=== PATIENT | male | born 1970 | race Asian ===

== ENCOUNTER 2017-02-11 20:50 | Inpatient (IN) | payer SELFPAY ==
--- NOTE | 2017-02-11 21:01 | EDM.PDOC ---
ED HPI GENERAL MEDICAL PROBLEM - General Chief Complaint: Gastrointestinal Problem Stated Complaint: TOOTH BRUSH IN RECTUM Time Seen by Provider: 02/11/17 21:01 Source of Information: Reports: Patient - History of Present Illness INITIAL COMMENTS - FREE TEXT/NARRATIVE: Patient reports that he inserted a toothbrush into his rectum yesterday. 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 He states he did not initially have pain but pain is significantly worsened now and is moved up to his upper abdomen. He states he did eat today last time was around 3 PM. He denies any bowel movement in the last 48 hours. He has not had any blood per rectum. 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 He has had quite a few [place] today with the last one being around 3 PM per his report. He denies any chronic medical conditions and is not on any medication daily. He is a full code per his report. Abdomen Pain Score (Numeric/FACES): 10 - Related Data Allergies Allergy/AdvReac Type Severity Reaction Status Date / Time No Known Allergies Allergy Verified 02/11/17 20:56 Home Meds: Home Meds . [No Known Home Meds] 02/11/17 [History] Past Medical History - Past Health History Medical/Surgical History: Denies Medical/Surgical History Social & Family History - Tobacco Use Smoking Status *Q: Current Every Day Smoker Years of Tobacco use: 20 Packs/Tins Daily: 1 - Caffeine Use Caffeine Use: Reports: Soda - Recreational Drug Use Recreational Drug Use: No ED ROS GENERAL - Review of Systems Review Of Systems: See Below Constitutional: Denies: Fever, Chills, Weakness, Fatigue Respiratory: Reports: No Symptoms Cardiovascular: Reports: No Symptoms GI/Abdominal: Reports: Abdominal Pain, Decreased Appetite. Denies: Black Stool , Bloody Stool, Nausea, Vomiting Skin: Reports: No Symptoms ED EXAM, GI/ABD - Physical Exam Exam: See Below Exam Limited By: No Limitations General Appearance: Alert, Moderate Distress, Thin Throat/Mouth: Normal Inspection, Normal Oropharynx, Other (Missing teeth) Respiratory/Chest: No Respiratory Distress, Normal Breath Sounds, Chest Non- Tender Cardiovascular: Regular Rate, Rhythm, No Murmur GI/Abdominal: Hypoactive Bowel Sounds, Tenderness (Diffuse), Guarding, Rigidity , Other Rectal (Males) Exam: Normal Rectal Tone, Other (No palpable foreign body on YEISON , no blood per rectum.) Neurological: Alert, Oriented EKG INTERPRETATION EKG Date: 02/11/17 Rhythm: NSR Rate (Beats/Min): 121 EKG Interpretation Comments: Reviewed by myself and Dr Cramer Course - Vital Signs Last Recorded V/S: Last Vital Signs Temp 98.2 F 02/11/17 20:53 Pulse 137 H 02/11/17 20:53 Resp 30 H 02/11/17 20:53 BP 136/94 H 02/11/17 20:53 Pulse Ox 98 02/11/17 20:53 - Orders/Labs/Meds Orders: Active Orders 24 hr Category Date Time Status EKG 12 Lead [EKG Documentation Completion] [RC] STAT Care 02/11/17 21:26 Active Abdomen 1V Upright [CR] Stat Exams 02/11/17 21:24 Taken Abdomen Pelvis wo Cont [CT] Stat Exams 02/11/17 21:15 Stop Req CXR [Chest 2V] [CR] Stat Exams 02/11/17 21:24 Taken Sodium Chloride 0.9% [Normal Saline] 1,000 ml Med 02/11/17 21:15 Active IV ONETIME Medication Orders Sodium Chloride (Normal Saline) 1,000 mls @ 999 mls/hr IV ONETIME ONE Stop: 02/11/17 22:15 Last Admin: 02/11/17 21:19 Dose: 999 mls/hr Labs: Laboratory Tests 02/11/17 02/11/17 02/11/17 Range/Units 21:09 21:09 21:17 WBC 8.24 (4.23-9.07) K/mm3 RBC 5.63 (4.63-6.08) M/mm3 Hgb 17.1 (13.7-17.5) gm/L Hct 49.1 (40.1-51.0) % MCV 87.2 (79.0-92.2) fl MCH 30.4 (25.7-32.2) pg MCHC 34.8 (32.2-35.5) g/dl RDW Std Deviation 40.8 (35.1-43.9) fL Plt Count 273 (163-337) K/mm3 MPV 9.9 (9.4-12.3) fl Neutrophils % (Manual) 72 H (40-60) % Band Neutrophils % 0 (0-10) % Lymphocytes % (Manual) 25 (20-40) % Atypical Lymphs % 0 % Monocytes % (Manual) 3 (2-10) % Eosinophils % (Manual) 0 L (0.8-7.0) % Basophils % (Manual) 0 L (0.2-1.2) Platelet Estimate Adequate Plt Morphology Comment Normal RBC Morph Comment Normal PT 9.7 (8.0-13.0) SECONDS INR 0.90 APTT 23 (22-36) SECONDS Sodium 131 L (136-145) mEq/L Potassium 3.5 (3.5-5.1) mEq/L Chloride 92 L (98-107) mEq/L Carbon Dioxide 26 (21-32) mEq/L Anion Gap 16.5 H (5-15) BUN 12 (7-18) mg/dL Creatinine 1.8 H (0.7-1.3) mg/dL Est Cr Clr Drug Dosing 46.77 mL/min Estimated GFR (MDRD) 41 (>60) mL/min BUN/Creatinine Ratio 6.7 L (14-18) Glucose 147 H (74-106) mg/dL Calcium 9.5 (8.5-10.1) mg/dL Total Bilirubin 1.5 H (0.2-1.0) mg/dL AST 29 (15-37) U/L ALT 42 (16-63) U/L Alkaline Phosphatase 53 (46-116) U/L C-Reactive Protein 0.4 (<1.0) mg/dL Total Protein 8.2 (6.4-8.2) g/dl Albumin 4.8 (3.4-5.0) g/dl Globulin 3.4 gm/dL Albumin/Globulin Ratio 1.4 (1-2) Ethyl Alcohol 0.00 (0.00) gm% Meds: Medications Generic Name Dose Route Start Last Admin Trade Name Freq PRN Reason Stop Dose Admin Sodium Chloride 1,000 mls @ 999 mls/hr 02/11/17 21:15 02/11/17 21:19 Normal Saline IV 02/11/17 22:15 999 mls/hr ONETIME ONE Administration Discontinued Medications Generic Name Dose Route Start Last Admin Trade Name Freq PRN Reason Stop Dose Admin Hydromorphone HCl 0.5 mg 02/11/17 21:15 02/11/17 21:20 Dilaudid IVPUSH 02/11/17 21:16 0.5 mg ONETIME ONE Administration Hydromorphone HCl Confirm 02/11/17 21:19 02/11/17 21:22 Dilaudid Administered 02/11/17 21:20 Not Given Dose 0.5 mg .ROUTE .STK-MED ONE Sodium Chloride Confirm 02/11/17 21:20 02/11/17 21:21 Normal Saline Administered 02/11/17 21:21 Not Given Dose 1,000 mls @ as directed .ROUTE .STK-MED ONE - Re-Assessments/Exams Free Text/Narrative Re-Assessment/Exam: Pain significantly improved with 0.5 mg of Dilaudid. Upright abdomen does not demonstrate any free air, cannot see the foreign body on this. Chest x-ray is unremarkable though official report is pending. EKG with sinus tachycardia and a rate of 121. Discussed this case with Dr. Orozco who agrees to come in to scope him to remove the foreign body and evaluate for any internal damage. Patient has not had anesthesia before. He is a full code. 02/11/17 22:03 Departure - Departure Time of Disposition: 22:07 Disposition: DC/Tfer to [facility] Clinical Impression: Foreign body in colon, initial encounter Qualifiers: Encounter type: initial encounter Qualified Code(s): T18.4XXA - Foreign body in colon, initial encounter - Discharge Information - My Orders Last 24 Hours: My Active Orders 02/11/17 21:15 Abdomen Pelvis wo Cont [CT] Stat Sodium Chloride 0.9% [Normal Saline] 1,000 ml IV ONETIME 02/11/17 21:24 Abdomen 1V Upright [CR] Stat CXR [Chest 2V] [CR] Stat 02/11/17 21:26 EKG 12 Lead [EKG Documentation Completion] [RC] STAT - Assessment/Plan Last 24 Hours: My Active Orders 02/11/17 21:15 Abdomen Pelvis wo Cont [CT] Stat Sodium Chloride 0.9% [Normal Saline] 1,000 ml IV ONETIME 02/11/17 21:24 Abdomen 1V Upright [CR] Stat CXR [Chest 2V] [CR] Stat 02/11/17 21:26 EKG 12 Lead [EKG Documentation Completion] [RC] STAT
[2017-02-11] MEDS ORDERED: HYDROmorphone 0.5 MG/0.5 ML Syringe IVPUSH ONE (21:15)
[2017-02-11] MEDS ORDERED: Sodium Chloride 0.9% 1,000 ML IV ONE (21:15)
[2017-02-11] MEDS ORDERED: HYDROmorphone 0.5 MG/0.5 ML Syringe ONE (21:19)
[2017-02-11] MEDS ORDERED: Sodium Chloride 0.9% 1,000 ML ONE (21:20)
--- NOTE | 2017-02-11 22:06 | PCM.PREANE ---
Preanesthetic Assessment - Anesthesia/Transfusion/Family Hx Anesthesia History: No Prior Anesthesia Family History of Anesthesia Reaction: No Transfusion History: No Prior Transfusion(s) Intubation History: Unknown - Review of Systems General: No Symptoms Pulmonary: No Symptoms (smokes 2 packs/day times 20 years), Cough Cardiovascular: No Symptoms Gastrointestinal: No symptoms, Difficulty swallowing Neurological: No Symptoms, Tingling (right foot noted) Other: Reports: None - Physical Assessment NPO Status Date: 02/11/17 NPO Status Time: 12:00 Pulse: 137 O2 Sat by Pulse Oximetry: 98 Respiratory Rate: 30 Blood Pressure: 136/94 Vital Signs: Last Vital Signs Temp 36.8 C 02/11/17 20:53 Pulse 137 H 02/11/17 20:53 Resp 30 H 02/11/17 20:53 BP 136/94 H 02/11/17 20:53 Pulse Ox 98 02/11/17 20:53 Height: 1.68 m Weight: 68.039 kg ASA Class: 2 Mental Status: Alert & Oriented x3 Airway Class: Mallampati = 3 Dentition: Reports: Normal Dentition, Missing Tooth/Teeth, Caries Thyro-Mental Finger Breadths: 3 Mouth Opening Finger Breadths: 3 ROM/Head Extension: Full Lungs: Clear to auscultation, Normal respiratory effort Cardiovascular: Regular Rate, Regular Rhythm, No Murmurs - Lab Values: Laboratory Last Values WBC 8.24 K/mm3 (4.23-9.07) 02/11/17 21:17 RBC 5.63 M/mm3 (4.63-6.08) 02/11/17 21:17 Hgb 17.1 gm/L (13.7-17.5) 02/11/17 21:17 Hct 49.1 % (40.1-51.0) 02/11/17 21:17 MCV 87.2 fl (79.0-92.2) 02/11/17 21:17 MCH 30.4 pg (25.7-32.2) 02/11/17 21: MCHC 34.8 g/dl (32.2-35.5) 02/11/17 21:17 RDW Std Deviation 40.8 fL (35.1-43.9) 02/11/17 21:17 Plt Count 273 K/mm3 (163-337) 02/11/17 21:17 MPV 9.9 fl (9.4-12.3) 02/11/17 21:17 Neutrophils % (Manual) 72 % (40-60) H 02/11/17 21:17 Band Neutrophils % 0 % (0-10) 02/11/17 21:17 Lymphocytes % (Manual) 25 % (20-40) 02/11/17 21:17 Atypical Lymphs % 0 % 02/11/17 21:17 Monocytes % (Manual) 3 % (2-10) 02/11/17 21:17 Eosinophils % (Manual) 0 % (0.8-7.0) L 02/11/17 21:17 Basophils % (Manual) 0 (0.2-1.2) L 02/11/17 21:17 Platelet Estimate Adequate 02/11/17 21:17 Plt Morphology Comment Normal 02/11/17 21:17 RBC Morph Comment Normal 02/11/17 21:17 PT 9.7 SECONDS (8.0-13.0) 02/11/17 21:09 INR 0.90 02/11/17 21:09 APTT 23 SECONDS (22-36) 02/11/17 21:09 Sodium 131 mEq/L (136-145) L 02/11/17 21:09 Potassium 3.5 mEq/L (3.5-5.1) 02/11/17 21:09 Chloride 92 mEq/L (98-107) L 02/11/17 21:09 Carbon Dioxide 26 mEq/L (21-32) 02/11/17 21:09 Anion Gap 16.5 (5-15) H 02/11/17 21:09 BUN 12 mg/dL (7-18) 02/11/17 21:09 Creatinine 1.8 mg/dL (0.7-1.3) H 02/11/17 21:09 Est Cr Clr Drug Dosing 46.77 mL/min 02/11/17 21:09 Estimated GFR (MDRD) 41 mL/min (>60) 02/11/17 21:09 BUN/Creatinine Ratio 6.7 (14-18) L 02/11/17 21:09 Glucose 147 mg/dL (74-106) H 02/11/17 21:09 Calcium 9.5 mg/dL (8.5-10.1) 02/11/17 21:09 Total Bilirubin 1.5 mg/dL (0.2-1.0) H 02/11/17 21:09 AST 29 U/L (15-37) 02/11/17 21:09 ALT 42 U/L (16-63) 02/11/17 21:09 Alkaline Phosphatase 53 U/L (46-116) 02/11/17 21:09 C-Reactive Protein 0.4 mg/dL (<1.0) 02/11/17 21:09 Total Protein 8.2 g/dl (6.4-8.2) 02/11/17 21:09 Albumin 4.8 g/dl (3.4-5.0) 02/11/17 21:09 Globulin 3.4 gm/dL 02/11/17 21:09 Albumin/Globulin Ratio 1.4 (1-2) 02/11/17 21:09 Ethyl Alcohol 0.00 gm% (0.00) 02/11/17 21:09 Above labs reviewed and noted. - Allergies Allergies/Adverse Reactions: Allergies Allergy/AdvReac Type Severity Reaction Status Date / Time No Known Allergies Allergy Verified 02/11/17 20:56 - Anesthesia Plan Pre-Op Medication Ordered: None - Acknowledgements Anesthesia Type Planned: General Anesthesia, MAC Pt an Appropriate Candidate for the Planned Anesthesia: Yes Alternatives and Risks of Anesthesia Discussed w Pt/Guardian: Yes Pt/Guardian Understands and Agrees with Anesthesia Plan: Yes PreAnesthesia Questionnaire - Past Health History Medical/Surgical History: Denies Medical/Surgical History - SUBSTANCE USE Smoking Status *Q: Current Every Day Smoker Recreational Drug Use History: No - HOME MEDS Home Medications: Home Meds . [No Known Home Meds] 02/11/17 [History] - CURRENT (IN HOUSE) MEDS Current Meds: Current Medications Sodium Chloride (Normal Saline) 1,000 mls @ 999 mls/hr IV ONETIME ONE Stop: 02/11/17 22:15 Last Admin: 02/11/17 21:19 Dose: 999 mls/hr Discontinued Medications Hydromorphone HCl (Dilaudid) 0.5 mg IVPUSH ONETIME ONE Stop: 02/11/17 21:16 Last Admin: 02/11/17 21:20 Dose: 0.5 mg Hydromorphone HCl (Dilaudid) Confirm Administered Dose 0.5 mg .ROUTE .STK-MED ONE Stop: 02/11/17 21:20 Last Admin: 02/11/17 21:22 Dose: Not Given Sodium Chloride (Normal Saline) Confirm Administered Dose 1,000 mls @ as directed .ROUTE .STK-MED ONE Stop: 02/11/17 21:21 Last Admin: 02/11/17 21:21 Dose: Not Given
--- NOTE | 2017-02-11 22:22 | PCM.HP ---
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 He tried to digitally extract the foreign body but was unsuccessful. He's had associated lower abdominal discomfort, along with the inability to void and presented to the emergency room for evaluation. He drinks a sixpack a day. He was smoking methamphetamine during this binge. Also during this binge he has not eaten and has not had any other liquids besides alcohol. He has not urinated much as well. He last ate at 12:30 PM. Abdomen Pain Score (Numeric/FACES): 10 - Related Data Allergies/Adverse Reactions: Allergies Allergy/AdvReac Type Severity Reaction Status Date / Time No Known Allergies Allergy Verified 02/11/17 20:56 Home Medications: Home Meds . [No Known Home Meds] 02/11/17 [History] Past Medical History - Past Health History Medical/Surgical History: Denies Medical/Surgical History Social & Family History - Tobacco Use Smoking Status *Q: Current Every Day Smoker Years of Tobacco use: 20 Packs/Tins Daily: 1 - Caffeine Use Caffeine Use: Reports: Soda - Recreational Drug Use Recreational Drug Use: No H&P Review of Systems - Review of Systems: Review Of Systems: ROS reveals no pertinent complaints other than HPI. Musculoskeletal: Reports: Joint Pain, Other (Right knee) Exam - Exam Exam: See Below - Vital Signs Vital Signs: Last Vital Signs Temp 36.8 C 02/11/17 20:53 Pulse 137 H 02/11/17 22:06 Resp 30 H 02/11/17 22:06 BP 136/94 H 02/11/17 22:06 Pulse Ox 98 02/11/17 22:06 Weight: 68.039 kg - Exam Quality Assessment: Urinary Catheter (Dark shultz yellow urine) General: Alert, Oriented, Cooperative, Mild Distress HEENT: EOMI, Hearing Intact, Other (Poor dentition) Neck: Supple, Trachea Midline Lungs: Clear to Auscultation, Normal Respiratory Effort Cardiovascular: Regular Rate, Regular Rhythm, Normal S1, Normal S2 Abdomen: Other (Mild suprapubic discomfort) (Male) Exam: Normal Inspection, Circumcised Rectal (Males) Exam: Deferred Extremities: Normal Inspection, Normal Pulses Skin: Warm, Dry, Intact Psychiatric: Alert, Normal Affect, Normal Mood - Patient Data Lab Results Last 24 hrs: Laboratory Results - last 24 hr 02/11/17 02/11/17 02/11/17 Range/Units 21:09 21:09 21:17 WBC 8.24 (4.23-9.07) K/mm3 RBC 5.63 (4.63-6.08) M/mm3 Hgb 17.1 (13.7-17.5) gm/L Hct 49.1 (40.1-51.0) % MCV 87.2 (79.0-92.2) fl MCH 30.4 (25.7-32.2) pg MCHC 34.8 (32.2-35.5) g/dl RDW Std Deviation 40.8 (35.1-43.9) fL Plt Count 273 (163-337) K/mm3 MPV 9.9 (9.4-12.3) fl Neutrophils % (Manual) 72 H (40-60) % Band Neutrophils % 0 (0-10) % Lymphocytes % (Manual) 25 (20-40) % Atypical Lymphs % 0 % Monocytes % (Manual) 3 (2-10) % Eosinophils % (Manual) 0 L (0.8-7.0) % Basophils % (Manual) 0 L (0.2-1.2) Platelet Estimate Adequate Plt Morphology Comment Normal RBC Morph Comment Normal PT 9.7 (8.0-13.0) SECONDS INR 0.90 APTT 23 (22-36) SECONDS Sodium 131 L (136-145) mEq/L Potassium 3.5 (3.5-5.1) mEq/L Chloride 92 L (98-107) mEq/L Carbon Dioxide 26 (21-32) mEq/L Anion Gap 16.5 H (5-15) BUN 12 (7-18) mg/dL Creatinine 1.8 H (0.7-1.3) mg/dL Est Cr Clr Drug Dosing 46.77 mL/min Estimated GFR (MDRD) 41 (>60) mL/min BUN/Creatinine Ratio 6.7 L (14-18) Glucose 147 H (74-106) mg/dL Calcium 9.5 (8.5-10.1) mg/dL Total Bilirubin 1.5 H (0.2-1.0) mg/dL AST 29 (15-37) U/L ALT 42 (16-63) U/L Alkaline Phosphatase 53 (46-116) U/L C-Reactive Protein 0.4 (<1.0) mg/dL Total Protein 8.2 (6.4-8.2) g/dl Albumin 4.8 (3.4-5.0) g/dl Globulin 3.4 gm/dL Albumin/Globulin Ratio 1.4 (1-2) Ethyl Alcohol 0.00 (0.00) gm% Result Diagrams: 02/11/17 21:17 02/11/17 21:09 *Q Meaningful Use (ADM) - VTE *Q VTE Criteria *Q: - Stroke *Q Stroke Criteria *Q: - AMI *Q AMI Criteria *Q: - Problem List (1) Rectal foreign body SNOMED Code(s): 93632779 ICD Code: T18.5XXA - FOREIGN BODY IN ANUS AND RECTUM, INITIAL ENCOUNTER Status: Acute Priority: High Current Visit: Yes Qualifiers: Encounter type: initial encounter Qualified Code(s): T18.5XXA - Foreign body in anus and rectum, initial encounter Problem List Initiated/Reviewed/Updated: Yes Orders Last 24hrs: Active Orders 24 hr Category Date Time Status EKG 12 Lead [EKG Documentation Completion] [RC] STAT Care 02/11/17 21:26 Active Abdomen 1V Upright [CR] Stat Exams 02/11/17 21:24 Taken Abdomen Pelvis wo Cont [CT] Stat Exams 02/11/17 21:15 Stop Req CXR [Chest 2V] [CR] Stat Exams 02/11/17 21:24 Taken Assessment/Plan Comment:: imp: Retained rectal foreign body -- tooth brush plan: Endoscopic removal with endoscopic evaluation of the rectosigmoid anatomy.
[2017-02-11] MEDS ORDERED: Midazolam 1 MG/ML 2 ML SDV ONE (22:32)
[2017-02-11] MEDS ORDERED: Lidocaine 1% 4 ML ONE ×2 (22:32→23:54)
[2017-02-11] MEDS ORDERED: fentaNYL 100 MCG/2 ML SDV ONE ×2 (22:32→23:04)
[2017-02-11] MEDS ORDERED: Propofol 200 MG/20 ML SDV ONE ×2 (22:32→23:55)
--- NOTE | 2017-02-11 23:04 | PCM.OPNOTE ---
- General Post-Op/Procedure Note Date of Surgery/Procedure: 02/11/17 Operative Procedure(s): Colonoscopy with snare removal of toothbrush from the sigmoid Findings: Standard adult sized toothbrush which perforated the sigmoid at 15-20 cm from the anal verge. The perforation site had circumferential edema. There was a smaller deep abrasion at the rectosigmoid junction containing some exudate. Pre Op Diagnosis: Retained rectal foreign body Post-Op Diagnosis: Perforated sigmoid from a toothbrush foreign body Anesthesia Technique: MAC, Moderate sedation Primary Surgeon: Madan Orozco Pathology: None EBL in mLs: 0 Complications: None Condition: Good Free Text/Narrative:: After adequate IV sedation and analgesia with monitoring the patient was placed on his left side. Perianal inspection was normal. On digital rectal examination I could not appreciate the retained foreign body. A lubricated colonoscope was inserted into the rectum to 50 cm. The descending colon was normal. The toothbrush was seen in the sigmoid colon with a suspeceted perforation site at about 18 cm. The brush and was caudad. I used a snare and grasped the brush side and removed it through the anal verge without difficulty. I went back to reinspect the sigmoid for possible lacerations and found a perforation from the toothbrush at 18 cm. The patient tolerated the procedure well. Insulation Extruder Operator photographs were taken for the patient for the record.
[2017-02-11] MEDS ORDERED: HYDROmorphone 0.5 MG/0.5 ML Syringe IVPUSH PRN (23:11)
[2017-02-11] MEDS ORDERED: ePHEDrine 50 MG/ML SDV IVPUSH PRN (23:11)
[2017-02-11] MEDS ORDERED: Midazolam 1 MG/ML 2 ML SDV IVPUSH PRN (23:11)
[2017-02-11] MEDS ORDERED: Ondansetron 4 MG/2 ML SDV IVPUSH PRN (23:11)
--- NOTE | 2017-02-11 23:13 | PCM.POSTAN ---
POST ANESTHESIA ASSESSMENT - MENTAL STATUS Mental Status: alert - VITAL SIGNS Pulse Rate: 127 SaO2: 91 Resp Rate: 22 Blood Pressure: 101/92 Temperature: 36.9 C - RESPIRATORY Respiratory Status: respiratory rate WNL, airway patent, O2 saturation stable, supplemental oxygen - CARDIOVASCULAR CV Status: pulse rate WNL, blood pressure stable - GASTROINTESTINAL GI Status: no symptoms - POST OP HYDRATION Hydration Status: adequate & stable
[2017-02-11] MEDS ORDERED: Phenylephrine 1 MG in Sodium Chloride 0.9% 10 ML IV SCH (23:15)
[2017-02-11] MEDS ORDERED: Dexamethasone 4 MG/ML 5 ML MDV ONE (23:54)
[2017-02-11] MEDS ORDERED: Lactated Ringers 3,000 ML ONE (23:54)
[2017-02-11] MEDS ORDERED: Rocuronium 50 MG/5 ML Vial ONE (23:54)
[2017-02-11] MEDS ORDERED: Ondansetron 4 MG/2 ML SDV ONE (23:54)
[2017-02-11] MEDS ORDERED: HYDROmorphone 1 MG/ML Syringe ONE (23:55)
[2017-02-11] MEDS ORDERED: fentaNYL 250 MCG/5 ML SDV ONE (23:55)
[2017-02-12] MEDS ORDERED: HYDROmorphone 1 MG/ML Syringe ONE (00:38)
[2017-02-12] MEDS ORDERED: Lactated Ringers 1,000 ML ONE (00:45)
[2017-02-12] MEDS ORDERED: Neostigmine Methylsulfate 1 MG/ML 5 ML Syringe ONE (00:50)
[2017-02-12] MEDS ORDERED: Rocuronium 50 MG/5 ML Vial ONE (01:02)
[2017-02-12] MEDS ORDERED: Ondansetron 4 MG/2 ML SDV IVPUSH PRN ×2 (01:51→02:06)
[2017-02-12] MEDS ORDERED: fentaNYL 100 MCG/2 ML SDV ONE (01:57)
[2017-02-12] MEDS ORDERED: cefOXitin 2 GM in Sodium Chloride 0.9% 100 ML IV SCH (02:00)
[2017-02-12] MEDS: fentaNYL 100 MCG/2 ML SDV IVPUSH PRN ×2 (02:05→02:45)
[2017-02-12] MEDS ORDERED: HYDROmorphone 0.5 MG/0.5 ML Syringe IVPUSH PRN (02:06)
[2017-02-12] MEDS ORDERED: fentaNYL 100 MCG/2 ML SDV IVPUSH PRN (02:06)
[2017-02-12] MEDS ORDERED: Midazolam 1 MG/ML 2 ML SDV IVPUSH PRN (02:06)
--- NOTE | 2017-02-12 02:08 | PCM.POSTAN ---
POST ANESTHESIA ASSESSMENT - MENTAL STATUS Mental Status: alert - VITAL SIGNS Pulse Rate: 92 SaO2: 99 Resp Rate: 15 Blood Pressure: 120/87 Temperature: 36.8 C - RESPIRATORY Respiratory Status: respiratory rate WNL, airway patent, O2 saturation stable, supplemental oxygen - CARDIOVASCULAR CV Status: pulse rate WNL, blood pressure stable - GASTROINTESTINAL GI Status: no symptoms - POST OP HYDRATION Hydration Status: adequate & stable
--- NOTE | 2017-02-12 02:12 | PCM.OPNOTE ---
- General Post-Op/Procedure Note Date of Surgery/Procedure: 02/12/17 Operative Procedure(s): Exploratory laparotomy with primary closure of a 1 cm proximal sigmoid perforation with creation of a loop ileostomy Findings: Fecal peritonitis 1 cm diameter perforation just proximal to the rectal sigmoid junction Pre Op Diagnosis: Distal sigmoid perforation with peritonitis Post-Op Diagnosis: Same Anesthesia Technique: General ET tube Primary Surgeon: Madan Orozco Pathology: None EBL in mLs: 50 Complications: None Condition: Good Free Text/Narrative:: Intake & Output 02/11/17 02/11/17 02/12/17 14:59 22:59 06:59 Intake Total 600 Balance 600 After adequate general endotracheal tube anesthesia was obtained the patient was placed in the lithotomy position. A site for the ileostomy as well as a site for an end sigmoid colostomy was marked with a skin pen. His teeth were evaluated and were found to be very loose. His perianal region was prepped with Betadine. The abdomen was prepped then draped sterilely for the abdominal procedure. A 10 blade was used to make an incision beginning just above the umbilicus and extending to just above the symphysis pubis. This incision was deepened through the linea alba into the peritoneum. On entry into the abdomen there was free air. It wasn't particularly feculent. There was a turbid brownish kind of peritoneal fluid present. Aerobic and anaerobic cultures were obtained and sent. A [place] self-retaining tractor was placed. With the large amount of fecal peritonitis I irrigated out the lower abdomen and pelvis with a liter of warm saline. I then placed the patient in the reverse Trendelenburg position and packed the small bowel into the right left upper quadrants. Exploration quickly revealed a 1 cm anterior perforation at the level of the sacral promontory just proximal to the rectosigmoid junction. There was no purulence in the area. There was no gross fecal contamination. The wound edges were fairly fresh. Because of this I closed the perforation primarily with a running 3-0 Vicryl. A second layer of 3-0 silk interrupted Lembert sutures were then placed as a second suture line. I then created a tongue of greater omentum and extended it down to the repair and fixated it across the repair with 3 -- 3- 0 silk pexing sutures. I irrigated out the abdomen with 2 L of warm saline at this point. About 15 cm from the ileocecal valve I placed a temporary janet suture of 3-0 silk. Donald clamps were placed to the right lateral abdominal wall fascia and brought to the midline. A nickel-sized circular excision of skin was performed with a 10 blade. I used the cautery to make a vertical incision down to the anterior rectus fascia and made a 2 cm incision in this structure. I split the rectus muscle fibers after cauterizing the inferior epigastrics. The peritoneum was entered with Metzenbaum scissors. I then inserted my 2 index fingers through the ostomy opening. I took a [place] clamp and pulled the loop of ileum through the abdominal wall. I closed the laparotomy incision with a running #1 PDS suture. I left the skin open. I matured the loop by making a semicircular incision 2 cm or so distal to the apex of the loop then securing the opening circumferentially with interrupted 4- 0 subcuticular Vicryls. The ileostomy was pink. The ileostomy appliance was prepped and secured to the skin and a bag was placed. 3% Betadine soaked gauze was placed in the midline incision followed by sterile gauze and silk tape. There were no procedural complications. He went to the recovery area extubated with the nasogastric tube pulled in stable condition.
[2017-02-12] MEDS: Sodium Chloride 0.9% 1,000 ML IV SCH ×3 (03:52→10:17)
[2017-02-12] MEDS: HYDROmorphone 0.5 MG/0.5 ML Syringe IVPUSH PRN ×6 (05:57→16:44)
[2017-02-12] MEDS: cefOXitin 2 GM in Premix Bag 1 BAG IV SCH ×3 (06:00→21:01)
--- NOTE | 2017-02-12 07:47 | PCM48HPAN ---
Post Anesthesia Note - EVALUATION WITHIN 48HRS OF ANESTHETIC Vital Signs in Normal Range: Yes Patient Participated in Evaluation: Yes Respiratory Function Stable: Yes Airway Patent: Yes Cardiovascular Function Stable: Yes Hydration Status Stable: Yes Pain Control Satisfactory: Yes Nausea and Vomiting Control Satisfactory: Yes Mental Status Recovered: Yes - COMMENTS/OBSERVATIONS Free Text/Narrative:: Pt reports doing well. mentating clearly, pain controlled with meds, no f/c, or n/v. hernandez catheter in place. has not attempted ambulation yet. tolerating clears
--- NOTE | 2017-02-12 08:05 | PCM.SURGPN ---
- General Info Date of Service: 02/12/17 POD#: 1 Functional Status: Reports: pain controlled - Review of Systems Gastrointestinal: Reports: Abdominal pain (Incisional) - Patient Data Vitals - most recent: Last Vital Signs Temp 37.0 C 02/12/17 02:50 Pulse 92 02/12/17 02:07 Resp 13 02/12/17 03:05 BP 109/86 02/12/17 03:05 Pulse Ox 96 02/12/17 03:05 Weight - most recent: 65.317 kg I&O - last 24 hours: Intake & Output 02/11/17 02/12/17 02/12/17 22:59 06:59 14:59 Intake Total 507 Output Total 675 Balance -168 Lab Results last 24 hrs: Laboratory Results - last 24 hr 02/12/17 02/12/17 Range/Units 05:48 05:48 WBC 8.94 (4.23-9.07) K/mm3 RBC 4.45 L (4.63-6.08) M/mm3 Hgb 13.6 L (13.7-17.5) gm/L Hct 39.9 L (40.1-51.0) % MCV 89.7 (79.0-92.2) fl MCH 30.6 (25.7-32.2) pg MCHC 34.1 (32.2-35.5) g/dl RDW Std Deviation 41.1 (35.1-43.9) fL Plt Count 228 (163-337) K/mm3 MPV 10.6 (9.4-12.3) fl Neut % (Auto) 91.8 H (34.0-67.9) % Lymph % (Auto) 3.9 L (21.8-53.1) % [place] % (Auto) 4.1 L (5.3-12.2) % Eos % (Auto) 0 L (0.8-7.0) Baso % (Auto) 0.1 (0.1-1.2) % Neut # (Auto) 8.20 H (1.78-5.38) K/mm3 Lymph # (Auto) 0.35 L (1.32-3.57) K/mm3 [place] # (Auto) 0.37 (0.30-0.82) K/mm3 Eos # (Auto) 0.00 L (0.04-0.54) K/mm3 Baso # (Auto) 0.01 (0.01-0.08) K/mm3 Manual Slide Review Abnormal smear Sodium 135 L (136-145) mEq/L Potassium 4.5 (3.5-5.1) mEq/L Chloride 101 (98-107) mEq/L Carbon Dioxide 26 (21-32) mEq/L Anion Gap 12.5 (5-15) BUN 12 (7-18) mg/dL Creatinine 1.1 (0.7-1.3) mg/dL Est Cr Clr Drug Dosing 76.53 mL/min Estimated GFR (MDRD) > 60 (>60) mL/min BUN/Creatinine Ratio 10.9 L (14-18) Glucose 154 H (74-106) mg/dL Calcium 7.7 L (8.5-10.1) mg/dL Total Bilirubin 1.2 H (0.2-1.0) mg/dL AST 18 (15-37) U/L ALT 27 (16-63) U/L Alkaline Phosphatase 31 L (46-116) U/L Total Protein 5.4 L (6.4-8.2) g/dl Albumin 2.9 L (3.4-5.0) g/dl Globulin 2.5 gm/dL Albumin/Globulin Ratio 1.2 (1-2) Med Orders - Current: Current Medications Ephedrine Sulfate (Ephedrine Sulfate) 5 mg IVPUSH ASDIRECTED PRN PRN Reason: Hypotension Hydromorphone HCl (Dilaudid) 0.5 mg IVPUSH Q1H PRN PRN Reason: Pain (severe 7-10) Last Admin: 02/12/17 07:45 Dose: 0.5 mg Phenylephrine HCl 1 mg/ Sodium (Chloride) 10.1 mls @ 1 mls/sec IV TITRATE [facility] Sodium Chloride (Normal Saline) 1,000 mls @ 200 mls/hr IV ASDIRECTED [facility] Last Admin: 02/12/17 03:52 Dose: 200 mls/hr Cefoxitin Sodium 2 gm/ Premix 50 mls @ 100 mls/hr IV Q8HR [facility] Last Admin: 02/12/17 06:00 Dose: 100 mls/hr Midazolam HCl (Versed 1 Mg/Ml) 2 mg IVPUSH ONETIME PRN PRN Reason: Sedation Midazolam HCl (Versed 1 Mg/Ml) 2 mg IVPUSH ONETIME PRN PRN Reason: Sedation Ondansetron HCl (Zofran) 4 mg IVPUSH ONETIME PRN PRN Reason: Nausea/Vomiting Ondansetron HCl (Zofran) 4 mg IVPUSH Q6H PRN PRN Reason: Nausea/Vomiting Ondansetron HCl (Zofran) 4 mg IVPUSH ONETIME PRN PRN Reason: Nausea/Vomiting Discontinued Medications Dexamethasone (Dexamethasone) Confirm Administered Dose 20 mg .ROUTE .STK-MED ONE Stop: 02/11/17 23:55 Fentanyl (Sublimaze) Confirm Administered Dose 100 mcg .ROUTE .STK-MED ONE Stop: 02/11/17 22:33 Fentanyl (Sublimaze) Confirm Administered Dose 100 mcg .ROUTE .STK-MED ONE Stop: 02/11/17 23:05 Fentanyl (Sublimaze) 50 mcg IVPUSH Q5M PRN PRN Reason: Pain Stop: 02/11/17 23:27 Last Admin: 02/12/17 02:45 Dose: 50 mcg Fentanyl (Sublimaze) Confirm Administered Dose 250 mcg .ROUTE .STK-MED ONE Stop: 02/11/17 23:56 Fentanyl (Sublimaze) Confirm Administered Dose 100 mcg .ROUTE .STK-MED ONE Stop: 02/12/17 01:58 Fentanyl (Sublimaze) 50 mcg IVPUSH Q5M PRN PRN Reason: Pain Stop: 02/12/17 02:22 Glycopyrrolate () Confirm Administered Dose 1 mg .ROUTE .STK-MED ONE Stop: 02/12/17 00:51 Hydromorphone HCl (Dilaudid) 0.5 mg IVPUSH ONETIME ONE Stop: 02/11/17 21:16 Last Admin: 02/11/17 21:20 Dose: 0.5 mg Hydromorphone HCl (Dilaudid) Confirm Administered Dose 0.5 mg .ROUTE .STK-MED ONE Stop: 02/11/17 21:20 Last Admin: 02/11/17 21:22 Dose: Not Given Hydromorphone HCl (Dilaudid) 0.5 mg IVPUSH Q15M PRN PRN Reason: severe pain Stop: 02/11/17 23:27 Hydromorphone HCl (Dilaudid) Confirm Administered Dose 1 mg .ROUTE .STK-MED ONE Stop: 02/11/17 23:56 Hydromorphone HCl (Dilaudid) Confirm Administered Dose 1 mg .ROUTE .STK-MED ONE Stop: 02/12/17 00:39 Hydromorphone HCl (Dilaudid) 0.5 mg IVPUSH Q15M PRN PRN Reason: severe pain Stop: 02/12/17 02:22 Last Admin: 02/12/17 03:02 Dose: 0.5 mg Sodium Chloride (Normal Saline) 1,000 mls @ 999 mls/hr IV ONETIME ONE Stop: 02/11/17 22:15 Last Admin: 02/11/17 21:19 Dose: 999 mls/hr Sodium Chloride (Normal Saline) Confirm Administered Dose 1,000 mls @ as directed .ROUTE .STK-MED ONE Stop: 02/11/17 21:21 Last Admin: 02/11/17 21:21 Dose: Not Given Lidocaine HCl (Xylocaine-Mpf 1%) Confirm Administered Dose 4 mls @ as directed .ROUTE .STK-MED ONE Stop: 02/11/17 22:33 Cefoxitin Sodium (Mefoxin In Dextrose,Iso-Osm 2 Gm/50 Ml) Confirm Administered Dose 50 mls @ as directed .ROUTE .STK-MED ONE Stop: 02/11/17 23:14 Lidocaine HCl (Xylocaine-Mpf 1%) Confirm Administered Dose 4 mls @ as directed .ROUTE .STK-MED ONE Stop: 02/11/17 23:55 Lactated Ringer's (Ringers, Lactated) Confirm Administered Dose 3,000 mls @ as directed .ROUTE .STK-MED ONE Stop: 02/11/17 23:55 Lactated Ringer's (Ringers, Lactated) Confirm Administered Dose 1,000 mls @ as directed .ROUTE .STK-MED ONE Stop: 02/12/17 00:46 Cefoxitin Sodium 2 gm/ Sodium (Chloride) 100 mls @ 200 mls/hr IV Q6H [facility] Midazolam HCl (Versed 1 Mg/Ml) Confirm Administered Dose 2 mg .ROUTE .STK-MED ONE Stop: 02/11/17 22:33 Neostigmine Methylsulfate (Neostigmine) Confirm Administered Dose 5 mg .ROUTE .STK-MED ONE Stop: 02/12/17 00:51 Ondansetron HCl (Zofran) Confirm Administered Dose 4 mg .ROUTE .STK-MED ONE Stop: 02/11/17 23:55 Propofol (Diprivan 20 Ml) Confirm Administered Dose 200 mg .ROUTE .STK-MED ONE Stop: 02/11/17 22:33 Propofol (Diprivan 20 Ml) Confirm Administered Dose 200 mg .ROUTE .STK-MED ONE Stop: 02/11/17 23:56 Rocuronium [place] (Zemuron) Confirm Administered Dose 50 mg .ROUTE .STK-MED ONE Stop: 02/11/17 23:55 Rocuronium [place] (Zemuron) Confirm Administered Dose 50 mg .ROUTE .STK-MED ONE Stop: 02/12/17 01:03 - Exam Wound/Incisions: dressing dry and intact (Abdominal dressing), drainage (Some drainage near the ostomy appliance site) Abdomen: other (ileostomy pink) - Problem List & Annotations (1) Rectal foreign body SNOMED Code(s): 43338164 Code(s): T18.5XXA - FOREIGN BODY IN ANUS AND RECTUM, INITIAL ENCOUNTER Status: Acute Priority: High Current Visit: Yes Qualifiers: Encounter type: initial encounter Qualified Code(s): T18.5XXA - Foreign body in anus and rectum, initial encounter - Problem List Review Problem List Initiated/Reviewed/Updated: Yes - My Orders Last 24 Hours: Active Orders 24 hr Category Date Time Status Communication Order [RC] ROUTINE Care 02/12/17 02:05 Active Notify Provider [RC] ASDIRECTED Care 02/12/17 02:05 Active Oxygen Therapy [RC] ASDIRECTED Care 02/12/17 02:05 Active Pulse Oximetry [RC] ASDIRECTED Care 02/12/17 02:05 Active Midazolam [Versed 1 MG/ML] Med 02/12/17 02:06 Active 2 mg IVPUSH ONETIME PRN Ondansetron [Zofran] Med 02/12/17 02:06 Active 4 mg IVPUSH ONETIME PRN cefOXitin [Mefoxin in Dextrose,Iso-Osm 2 GM/50 ML] 2 gm Med 02/12/17 06:00 Active Premix Bag 1 bag IV Q8HR Medication Orders Ephedrine Sulfate (Ephedrine Sulfate) 5 mg IVPUSH ASDIRECTED PRN PRN Reason: Hypotension Hydromorphone HCl (Dilaudid) 0.5 mg IVPUSH Q1H PRN PRN Reason: Pain (severe 7-10) Last Admin: 02/12/17 07:45 Dose: 0.5 mg Admin: 02/12/17 05:57 Dose: 0.5 mg Phenylephrine HCl 1 mg/ Sodium (Chloride) 10.1 mls @ 1 mls/sec IV TITRATE [facility] Sodium Chloride (Normal Saline) 1,000 mls @ 200 mls/hr IV ASDIRECTED [facility] Last Admin: 02/12/17 03:52 Dose: 200 mls/hr Cefoxitin Sodium 2 gm/ Premix 50 mls @ 100 mls/hr IV Q8HR [facility] Last Admin: 02/12/17 06:00 Dose: 100 mls/hr Midazolam HCl (Versed 1 Mg/Ml) 2 mg IVPUSH ONETIME PRN PRN Reason: Sedation Midazolam HCl (Versed 1 Mg/Ml) 2 mg IVPUSH ONETIME PRN PRN Reason: Sedation Ondansetron HCl (Zofran) 4 mg IVPUSH ONETIME PRN PRN Reason: Nausea/Vomiting Ondansetron HCl (Zofran) 4 mg IVPUSH Q6H PRN PRN Reason: Nausea/Vomiting Ondansetron HCl (Zofran) 4 mg IVPUSH ONETIME PRN PRN Reason: Nausea/Vomiting - Assessment Assessment (Free Text/Narrative):: imp: Currently stable. Awaiting return of bowel function. plan: IV antibiotics. Mobilization. Hospitalist consultation to inpatient manage alcohol withdrawal protocol (discussed with )
[2017-02-12] MEDS ORDERED: LORazepam 1 MG Tab PO PRN (08:13)
[2017-02-12] MEDS ORDERED: Pneumococcal Polyvalent-23 Vaccine 0.5 ML SDV IM ONE (08:14)
[2017-02-12] MEDS: Famotidine 20 MG/2 ML SDV IVPUSH SCH ×2 (09:42→21:01)
[2017-02-12] MEDS: chlordiazePOXIDE 25 MG Cap PO SCH ×2 (09:43→21:01)
--- NOTE | 2017-02-12 12:41 | PCM.CONSN ---
- General Info Date of Service: 02/12/17 Admission Dx/Problem (Free Text): The hospitalist service was asked to see a 46 year old male post op. The patient presented with abdominal pain. He had a documented foreign body in the rectal/anus region which was extracted. The request for the consult occurred via a brief mention of the consult in passing with the PA. The specific problem to be addressed is alcohol withdrawal in the setting of probable methamphetamine. In the ED, a toxicology screen was not performed. The patient was taken to the OR where an exploratory lap was performed. The patient had a 1 cm perforation in the proximal sigmoid colon. A toothbrush had been inserted. A loop ileostomy was made. Currently the patient has mild pain post op. The drug screen is pending, he has been transferred to the ICU for Substance abuse/ETOH withdrawal. Functional Status: Reports: pain controlled, urinating - Review of Systems General: Reports: Weakness, Malaise HEENT: Reports: no symptoms Pulmonary: Reports: no symptoms Cardiovascular: Reports: No Symptoms Gastrointestinal: Reports: Abdominal pain Genitourinary: Reports: no symptoms Musculoskeletal: Reports: no symptoms Skin: Reports: no symptoms Neurological: Reports: No Symptoms Psychiatric: Reports: no symptoms - Patient Data Vitals - most recent: Last Vital Signs Temp 36.9 C 02/12/17 11:46 Pulse 82 02/12/17 07:01 Resp 11 L 02/12/17 11:46 BP 93/65 02/12/17 11:46 Pulse Ox 99 02/12/17 11:46 Weight - most recent: 65.317 kg I&O - last 24 hours: Intake & Output 02/11/17 02/12/17 02/12/17 22:59 06:59 14:59 Intake Total 507 75 Output Total 675 1285 Balance -168 -1210 Lab Results last 24 hrs: Laboratory Results - last 24 hr 02/12/17 02/12/17 02/12/17 Range/Units 05:48 05:48 05:48 WBC 8.94 (4.23-9.07) K/mm3 RBC 4.45 L (4.63-6.08) M/mm3 Hgb 13.6 L (13.7-17.5) gm/L Hct 39.9 L (40.1-51.0) % MCV 89.7 (79.0-92.2) fl MCH 30.6 (25.7-32.2) pg MCHC 34.1 (32.2-35.5) g/dl RDW Std Deviation 41.1 (35.1-43.9) fL Plt Count 228 (163-337) K/mm3 MPV 10.6 (9.4-12.3) fl Neut % (Auto) 91.8 H (34.0-67.9) % Lymph % (Auto) 3.9 L (21.8-53.1) % [place] % (Auto) 4.1 L (5.3-12.2) % Eos % (Auto) 0 L (0.8-7.0) Baso % (Auto) 0.1 (0.1-1.2) % Neut # (Auto) 8.20 H (1.78-5.38) K/mm3 Lymph # (Auto) 0.35 L (1.32-3.57) K/mm3 [place] # (Auto) 0.37 (0.30-0.82) K/mm3 Eos # (Auto) 0.00 L (0.04-0.54) K/mm3 Baso # (Auto) 0.01 (0.01-0.08) K/mm3 Manual Slide Review Abnormal smear Sodium 135 L (136-145) mEq/L Potassium 4.5 (3.5-5.1) mEq/L Chloride 101 (98-107) mEq/L Carbon Dioxide 26 (21-32) mEq/L Anion Gap 12.5 (5-15) BUN 12 (7-18) mg/dL Creatinine 1.1 (0.7-1.3) mg/dL Est Cr Clr Drug Dosing 76.53 mL/min Estimated GFR (MDRD) > 60 (>60) mL/min BUN/Creatinine Ratio 10.9 L (14-18) Glucose 154 H (74-106) mg/dL Calcium 7.7 L (8.5-10.1) mg/dL Magnesium 1.6 L (1.8-2.4) mg/dl Total Bilirubin 1.2 H (0.2-1.0) mg/dL AST 18 (15-37) U/L ALT 27 (16-63) U/L Alkaline Phosphatase 31 L (46-116) U/L Total Protein 5.4 L (6.4-8.2) g/dl Albumin 2.9 L (3.4-5.0) g/dl Globulin 2.5 gm/dL Albumin/Globulin Ratio 1.2 (1-2) Urine Opiates Screen (NEGATIVE) Ur Buprenorphine Scrn (NEGATIVE) Ur Oxycodone Screen (NEGATIVE) Urine Methadone Screen (NEGATIVE) Ur Propoxyphene Screen (NEGATIVE) Ur Barbiturates Screen (NEGATIVE) Ur Tricyclics Screen (NEGATIVE) Ur Phencyclidine Scrn (NEGATIVE) Ur Amphetamine Screen (NEGATIVE) U Methamphetamines Scrn (NEGATIVE) U Benzodiazepines Scrn (NEGATIVE) U Cocaine Metab Screen (NEGATIVE) U Marijuana (THC) Screen (NEGATIVE) 02/12/17 Range/Units 10:05 WBC (4.23-9.07) K/mm3 RBC (4.63-6.08) M/mm3 Hgb (13.7-17.5) gm/L Hct (40.1-51.0) % MCV (79.0-92.2) fl MCH (25.7-32.2) pg MCHC (32.2-35.5) g/dl RDW Std Deviation (35.1-43.9) fL Plt Count (163-337) K/mm3 MPV (9.4-12.3) fl Neut % (Auto) (34.0-67.9) % Lymph % (Auto) (21.8-53.1) % [place] % (Auto) (5.3-12.2) % Eos % (Auto) (0.8-7.0) Baso % (Auto) (0.1-1.2) % Neut # (Auto) (1.78-5.38) K/mm3 Lymph # (Auto) (1.32-3.57) K/mm3 [place] # (Auto) (0.30-0.82) K/mm3 Eos # (Auto) (0.04-0.54) K/mm3 Baso # (Auto) (0.01-0.08) K/mm3 Manual Slide Review Sodium (136-145) mEq/L Potassium (3.5-5.1) mEq/L Chloride (98-107) mEq/L Carbon Dioxide (21-32) mEq/L Anion Gap (5-15) BUN (7-18) mg/dL Creatinine (0.7-1.3) mg/dL Est Cr Clr Drug Dosing mL/min Estimated GFR (MDRD) (>60) mL/min BUN/Creatinine Ratio (14-18) Glucose (74-106) mg/dL Calcium (8.5-10.1) mg/dL Magnesium (1.8-2.4) mg/dl Total Bilirubin (0.2-1.0) mg/dL AST (15-37) U/L ALT (16-63) U/L Alkaline Phosphatase (46-116) U/L Total Protein (6.4-8.2) g/dl Albumin (3.4-5.0) g/dl Globulin gm/dL Albumin/Globulin Ratio (1-2) Urine Opiates Screen Presumptive positive H (NEGATIVE) Ur Buprenorphine Scrn Negative (NEGATIVE) Ur Oxycodone Screen Negative (NEGATIVE) Urine Methadone Screen Negative (NEGATIVE) Ur Propoxyphene Screen Negative (NEGATIVE) Ur Barbiturates Screen Negative (NEGATIVE) Ur Tricyclics Screen Negative (NEGATIVE) Ur Phencyclidine Scrn Negative (NEGATIVE) Ur Amphetamine Screen Presumptive positive H (NEGATIVE) U Methamphetamines Scrn Presumptive positive H (NEGATIVE) U Benzodiazepines Scrn Negative (NEGATIVE) U Cocaine Metab Screen Negative (NEGATIVE) U Marijuana (THC) Screen Negative (NEGATIVE) Med Orders - Current: Current Medications Chlordiazepoxide HCl (Librium) 25 mg PO BID [facility] Last Admin: 02/12/17 09:43 Dose: 25 mg Ephedrine Sulfate (Ephedrine Sulfate) 5 mg IVPUSH ASDIRECTED PRN PRN Reason: Hypotension Famotidine (Pepcid) 20 mg IVPUSH BID [facility] Last Admin: 02/12/17 09:42 Dose: 20 mg Hydromorphone HCl (Dilaudid) 0.5 mg IVPUSH Q1H PRN PRN Reason: Pain (severe 7-10) Last Admin: 02/12/17 12:06 Dose: 0.5 mg Phenylephrine HCl 1 mg/ Sodium (Chloride) 10.1 mls @ 1 mls/sec IV TITRATE [facility] Sodium Chloride (Normal Saline) 1,000 mls @ 125 mls/hr IV ASDIRECTED [facility] Last Admin: 02/12/17 10:17 Dose: 125 mls/hr Cefoxitin Sodium 2 gm/ Premix 50 mls @ 100 mls/hr IV Q8HR [facility] Last Admin: 02/12/17 06:00 Dose: 100 mls/hr Lorazepam (Ativan) 1 - 2 mg PO Q4H PRN; Protocol PRN Reason: Withdrawal Symptoms Midazolam HCl (Versed 1 Mg/Ml) 2 mg IVPUSH ONETIME PRN PRN Reason: Sedation Ondansetron HCl (Zofran) 4 mg IVPUSH ONETIME PRN PRN Reason: Nausea/Vomiting Ondansetron HCl (Zofran) 4 mg IVPUSH Q6H PRN PRN Reason: Nausea/Vomiting Ondansetron HCl (Zofran) 4 mg IVPUSH ONETIME PRN PRN Reason: Nausea/Vomiting Quetiapine Fumarate (Seroquel) 25 mg PO BEDTIME [facility] Discontinued Medications Dexamethasone (Dexamethasone) Confirm Administered Dose 20 mg .ROUTE .STK-MED ONE Stop: 02/11/17 23:55 Fentanyl (Sublimaze) Confirm Administered Dose 100 mcg .ROUTE .STK-MED ONE Stop: 02/11/17 22:33 Fentanyl (Sublimaze) Confirm Administered Dose 100 mcg .ROUTE .STK-MED ONE Stop: 02/11/17 23:05 Fentanyl (Sublimaze) 50 mcg IVPUSH Q5M PRN PRN Reason: Pain Stop: 02/11/17 23:27 Last Admin: 02/12/17 02:45 Dose: 50 mcg Fentanyl (Sublimaze) Confirm Administered Dose 250 mcg .ROUTE .STK-MED ONE Stop: 02/11/17 23:56 Fentanyl (Sublimaze) Confirm Administered Dose 100 mcg .ROUTE .STK-MED ONE Stop: 02/12/17 01:58 Last Admin: 02/12/17 11:38 Dose: Not Given Fentanyl (Sublimaze) 50 mcg IVPUSH Q5M PRN PRN Reason: Pain Stop: 02/12/17 02:22 Glycopyrrolate () Confirm Administered Dose 1 mg .ROUTE .STK-MED ONE Stop: 02/12/17 00:51 Hydromorphone HCl (Dilaudid) 0.5 mg IVPUSH ONETIME ONE Stop: 02/11/17 21:16 Last Admin: 02/11/17 21:20 Dose: 0.5 mg Hydromorphone HCl (Dilaudid) Confirm Administered Dose 0.5 mg .ROUTE .STK-MED ONE Stop: 02/11/17 21:20 Last Admin: 02/11/17 21:22 Dose: Not Given Hydromorphone HCl (Dilaudid) 0.5 mg IVPUSH Q15M PRN PRN Reason: severe pain Stop: 02/11/17 23:27 Hydromorphone HCl (Dilaudid) Confirm Administered Dose 1 mg .ROUTE .STK-MED ONE Stop: 02/11/17 23:56 Hydromorphone HCl (Dilaudid) Confirm Administered Dose 1 mg .ROUTE .STK-MED ONE Stop: 02/12/17 00:39 Hydromorphone HCl (Dilaudid) 0.5 mg IVPUSH Q15M PRN PRN Reason: severe pain Stop: 02/12/17 02:22 Last Admin: 02/12/17 03:02 Dose: 0.5 mg Sodium Chloride (Normal Saline) 1,000 mls @ 999 mls/hr IV ONETIME ONE Stop: 02/11/17 22:15 Last Admin: 02/11/17 21:19 Dose: 999 mls/hr Sodium Chloride (Normal Saline) Confirm Administered Dose 1,000 mls @ as directed .ROUTE .STK-MED ONE Stop: 02/11/17 21:21 Last Admin: 02/11/17 21:21 Dose: Not Given Lidocaine HCl (Xylocaine-Mpf 1%) Confirm Administered Dose 4 mls @ as directed .ROUTE .STK-MED ONE Stop: 02/11/17 22:33 Cefoxitin Sodium (Mefoxin In Dextrose,Iso-Osm 2 Gm/50 Ml) Confirm Administered Dose 50 mls @ as directed .ROUTE .STK-MED ONE Stop: 02/11/17 23:14 Lidocaine HCl (Xylocaine-Mpf 1%) Confirm Administered Dose 4 mls @ as directed .ROUTE .STK-MED ONE Stop: 02/11/17 23:55 Lactated Ringer's (Ringers, Lactated) Confirm Administered Dose 3,000 mls @ as directed .ROUTE .STK-MED ONE Stop: 02/11/17 23:55 Lactated Ringer's (Ringers, Lactated) Confirm Administered Dose 1,000 mls @ as directed .ROUTE .STK-MED ONE Stop: 02/12/17 00:46 Cefoxitin Sodium 2 gm/ Sodium (Chloride) 100 mls @ 200 mls/hr IV Q6H [facility] Last Admin: 02/12/17 11:40 Dose: Not Given Midazolam HCl (Versed 1 Mg/Ml) Confirm Administered Dose 2 mg .ROUTE .STK-MED ONE Stop: 02/11/17 22:33 Midazolam HCl (Versed 1 Mg/Ml) 2 mg IVPUSH ONETIME PRN PRN Reason: Sedation Neostigmine Methylsulfate (Neostigmine) Confirm Administered Dose 5 mg .ROUTE .STK-MED ONE Stop: 02/12/17 00:51 Ondansetron HCl (Zofran) Confirm Administered Dose 4 mg .ROUTE .STK-MED ONE Stop: 02/11/17 23:55 Pneumococcal Polyvalent Vaccine (Pneumovax 23) 0.5 ml IM .ONCE ONE Stop: 02/12/17 08:15 Propofol (Diprivan 20 Ml) Confirm Administered Dose 200 mg .ROUTE .STK-MED ONE Stop: 02/11/17 22:33 Propofol (Diprivan 20 Ml) Confirm Administered Dose 200 mg .ROUTE .STK-MED ONE Stop: 02/11/17 23:56 Rocuronium [place] (Zemuron) Confirm Administered Dose 50 mg .ROUTE .STK-MED ONE Stop: 02/11/17 23:55 Rocuronium [place] (Zemuron) Confirm Administered Dose 50 mg .ROUTE .STK-MED ONE Stop: 02/12/17 01:03 - Exam Quality Assessment: supplemental oxygen, DVT prophylaxis General: alert, oriented, cooperative, mild distress HEENT: Pupils equal, Pupils reactive, EOMI, Other (poor dentition) Neck: supple, trachea midline, no JVD Lungs: Normal respiratory effort, Rhonchi Cardiovascular: Regular Rate, Regular Rhythm Abdomen: bowel sounds present (diminshed), rigidity (no), rebound (no), tenderness (Male) Exam: Deferred Back Exam: Normal Inspection Extremities: normal pulses Skin: warm Wound/Incisions: dressing dry and intact, drainage (minimal) Neurological: normal speech Psy/Mental Status: alert, depressed Consult PN Assessment/Plan POD#: 0 (1) Methamphetamine abuse SNOMED Code(s): 712966318 Code(s): F15.10 - OTHER STIMULANT ABUSE, UNCOMPLICATED Current Visit: Yes (2) Alcohol abuse SNOMED Code(s): 97929140 Code(s): F10.10 - ALCOHOL ABUSE, UNCOMPLICATED Current Visit: Yes (3) Alcohol dependence SNOMED Code(s): 50040890, 440536882 Code(s): F10.20 - ALCOHOL DEPENDENCE, UNCOMPLICATED Current Visit: Yes (4) Poor dentition SNOMED Code(s): 812821172 Code(s): K08.9 - DISORDER OF TEETH AND SUPPORTING STRUCTURES, UNSPECIFIED Current Visit: Yes (5) Foreign body in colon, initial encounter SNOMED Code(s): 10158682 Code(s): T18.4XXA - FOREIGN BODY IN COLON, INITIAL ENCOUNTER Current Visit : Yes Qualifiers: Encounter type: initial encounter Qualified Code(s): T18.4XXA - Foreign body in colon, initial encounter (6) Rectal foreign body SNOMED Code(s): 82528172 Code(s): T18.5XXA - FOREIGN BODY IN ANUS AND RECTUM, INITIAL ENCOUNTER Priority: High Current Visit: Yes Qualifiers: Encounter type: initial encounter Qualified Code(s): T18.5XXA - Foreign body in anus and rectum, initial encounter Problem List Initiated/Reviewed/Updated: Yes Plan: Impression: Abdominal pain with insertion of foreign body/tooth brush POD 0, S/P Exp Lap with primary closure; 1 cm proximal Sigmoid Perforation with creation of a loop ileostomy. Polysubstance abuse (marijuana, methamphetamine, ETOH) Query sexually transmitted disease in the setting of misadventure Plan: Transfer to ICU [facility] protocol UDS, COLLINS to be determined Antibiotic/Pain meds per primary service Infectious work up Substance Abuse consult Psychiatric consult Wound Care per primary SW/PT/OT
[2017-02-12 13:33] LABS: C. TRACHOMATIS BY PCR NOT DETECTED; N. GONORRHOEAE BY PCR NOT DETECTED
[2017-02-12] MEDS ORDERED: Magnesium Sulfate/Water 2 GM in Premix Bag 1 BAG IV ONE (13:56)
[2017-02-12] MEDS: HYDROmorphone 1 MG/ML Syringe IVPUSH PRN (17:50)
[2017-02-12] MEDS: Ketorolac 30 MG/ML SDV IVPUSH PRN (17:51)
[2017-02-12] MEDS: Cyclobenzaprine 10 MG Tab PO SCH (21:01)
[2017-02-12] MEDS: QUEtiapine 25 MG Tab PO SCH (21:01)
[2017-02-13] MEDS: Ketorolac 30 MG/ML SDV IVPUSH PRN ×3 (02:13→15:01)
[2017-02-13] MEDS: HYDROmorphone 1 MG/ML Syringe IVPUSH PRN ×4 (02:14→18:29)
[2017-02-13] MEDS: cefOXitin 2 GM in Premix Bag 1 BAG IV SCH ×3 (05:39→20:58)
[2017-02-13] MEDS: Cyclobenzaprine 10 MG Tab PO SCH ×2 (08:36→20:58)
[2017-02-13] MEDS: Famotidine 20 MG/2 ML SDV IVPUSH SCH ×2 (09:01→20:58)
[2017-02-13] MEDS: chlordiazePOXIDE 25 MG Cap PO SCH ×3 (09:02→20:58)
[2017-02-13] MEDS: Lactated Ringers 1,000 ML IV SCH ×2 (09:03→15:57)
--- NOTE | 2017-02-13 09:18 | PCM.CONSN ---
- General Info Date of Service: 02/13/17 Admission Dx/Problem (Free Text): Consultation: Substance Abuse and ETOH Withdrawal Subjective Update: Follow Up Functional Status: Reports: pain controlled. Denies: new symptoms - Review of Systems General: Denies: Fever, Weakness, Fatigue, Malaise, Chills HEENT: Reports: no symptoms Pulmonary: Denies: shortness of breath Cardiovascular: Denies: Chest Pain Gastrointestinal: Reports: Abdominal pain, Diarrhea (on ileostomy bag), Flatus. Denies: Nausea, Vomiting Genitourinary: Reports: no symptoms Musculoskeletal: Reports: no symptoms Skin: Reports: no symptoms Neurological: Denies: Confusion, Difficulty Walking, Weakness, Gait Disturbance Psychiatric: Denies: depression, anxiety, agitation, hallucinations Systems Review Comment:: No overnight issues. He complaints of incisional pain. His BP this morning was hypotensive. He has no acute issues. His CIWA score is zero. - Patient Data Vitals - most recent: Last Vital Signs Temp 36.7 C 02/13/17 08:00 Pulse 65 02/13/17 04:00 Resp 14 02/13/17 08:00 BP 87/67 L 02/13/17 08:00 Pulse Ox 98 02/13/17 08:00 Weight - most recent: 66.678 kg I&O - last 24 hours: Intake & Output 02/12/17 02/13/17 02/13/17 22:59 06:59 14:59 Intake Total 1785 169 Output Total 685 450 Balance 1100 -281 Lab Results last 24 hrs: Laboratory Results - last 24 hr 02/12/17 02/12/17 02/13/17 Range/Units 10:05 10:05 05:46 WBC 8.07 (4.23-9.07) K/mm3 RBC 3.54 L (4.63-6.08) M/mm3 Hgb 10.8 L (13.7-17.5) gm/L Hct 33.1 L (40.1-51.0) % MCV 93.5 H (79.0-92.2) fl MCH 30.5 (25.7-32.2) pg MCHC 32.6 (32.2-35.5) g/dl RDW Std Deviation 41.5 (35.1-43.9) fL Plt Count 171 (163-337) K/mm3 MPV 10.2 (9.4-12.3) fl Neut % (Auto) 83.6 H (34.0-67.9) % Lymph % (Auto) 12.0 L (21.8-53.1) % [place] % (Auto) 3.2 L (5.3-12.2) % Eos % (Auto) 0.9 (0.8-7.0) Baso % (Auto) 0.2 (0.1-1.2) % Neut # (Auto) 6.74 H (1.78-5.38) K/mm3 Lymph # (Auto) 0.97 L (1.32-3.57) K/mm3 [place] # (Auto) 0.26 L (0.30-0.82) K/mm3 Eos # (Auto) 0.07 (0.04-0.54) K/mm3 Baso # (Auto) 0.02 (0.01-0.08) K/mm3 Sodium (136-145) mEq/L Potassium (3.5-5.1) mEq/L Chloride (98-107) mEq/L Carbon Dioxide (21-32) mEq/L Anion Gap (5-15) BUN (7-18) mg/dL Creatinine (0.7-1.3) mg/dL Est Cr Clr Drug Dosing mL/min Estimated GFR (MDRD) (>60) mL/min BUN/Creatinine Ratio (14-18) Glucose (74-106) mg/dL Calcium (8.5-10.1) mg/dL Magnesium (1.8-2.4) mg/dl Urine Opiates Screen Presumptive positive H (NEGATIVE) Ur Buprenorphine Scrn Negative (NEGATIVE) Ur Oxycodone Screen Negative (NEGATIVE) Urine Methadone Screen Negative (NEGATIVE) Ur Propoxyphene Screen Negative (NEGATIVE) Ur Barbiturates Screen Negative (NEGATIVE) Ur Tricyclics Screen Negative (NEGATIVE) Ur Phencyclidine Scrn Negative (NEGATIVE) Ur Amphetamine Screen Presumptive positive H (NEGATIVE) U Methamphetamines Scrn Presumptive positive H (NEGATIVE) U Benzodiazepines Scrn Negative (NEGATIVE) U Cocaine Metab Screen Negative (NEGATIVE) U Marijuana (THC) Screen Negative (NEGATIVE) C trachomatis DNA (PCR) Not detected N gonorrhoeae DNA (PCR) Not detected 02/13/17 Range/Units 05:46 WBC (4.23-9.07) K/mm3 RBC (4.63-6.08) M/mm3 Hgb (13.7-17.5) gm/L Hct (40.1-51.0) % MCV (79.0-92.2) fl MCH (25.7-32.2) pg MCHC (32.2-35.5) g/dl RDW Std Deviation (35.1-43.9) fL Plt Count (163-337) K/mm3 MPV (9.4-12.3) fl Neut % (Auto) (34.0-67.9) % Lymph % (Auto) (21.8-53.1) % [place] % (Auto) (5.3-12.2) % Eos % (Auto) (0.8-7.0) Baso % (Auto) (0.1-1.2) % Neut # (Auto) (1.78-5.38) K/mm3 Lymph # (Auto) (1.32-3.57) K/mm3 [place] # (Auto) (0.30-0.82) K/mm3 Eos # (Auto) (0.04-0.54) K/mm3 Baso # (Auto) (0.01-0.08) K/mm3 Sodium 137 (136-145) mEq/L Potassium 3.7 (3.5-5.1) mEq/L Chloride 103 (98-107) mEq/L Carbon Dioxide 27 (21-32) mEq/L Anion Gap 10.7 (5-15) BUN 11 (7-18) mg/dL Creatinine 0.9 (0.7-1.3) mg/dL Est Cr Clr Drug Dosing 93.53 mL/min Estimated GFR (MDRD) > 60 (>60) mL/min BUN/Creatinine Ratio 12.2 L (14-18) Glucose 119 H (74-106) mg/dL Calcium 8.0 L (8.5-10.1) mg/dL Magnesium 2.4 (1.8-2.4) mg/dl Urine Opiates Screen (NEGATIVE) Ur Buprenorphine Scrn (NEGATIVE) Ur Oxycodone Screen (NEGATIVE) Urine Methadone Screen (NEGATIVE) Ur Propoxyphene Screen (NEGATIVE) Ur Barbiturates Screen (NEGATIVE) Ur Tricyclics Screen (NEGATIVE) Ur Phencyclidine Scrn (NEGATIVE) Ur Amphetamine Screen (NEGATIVE) U Methamphetamines Scrn (NEGATIVE) U Benzodiazepines Scrn (NEGATIVE) U Cocaine Metab Screen (NEGATIVE) U Marijuana (THC) Screen (NEGATIVE) C trachomatis DNA (PCR) N gonorrhoeae DNA (PCR) Med Orders - Current: Current Medications Chlordiazepoxide HCl (Librium) 25 mg PO TID [facility] Last Admin: 02/13/17 09:02 Dose: 25 mg Cyclobenzaprine HCl (Flexeril) 10 mg PO BID [facility] Last Admin: 02/13/17 08:36 Dose: Not Given Famotidine (Pepcid) 20 mg IVPUSH BID [facility] Last Admin: 02/13/17 09:01 Dose: 20 mg Hydromorphone HCl (Dilaudid) 1 mg IVPUSH Q1H PRN PRN Reason: pain Last Admin: 02/13/17 02:14 Dose: 1 mg Cefoxitin Sodium 2 gm/ Premix 50 mls @ 100 mls/hr IV Q8HR [facility] Last Admin: 02/13/17 05:39 Dose: 100 mls/hr Lactated Ringer's (Ringers, Lactated) 1,000 mls @ 100 mls/hr IV ASDIRECTED [facility] Last Admin: 02/13/17 09:03 Dose: 100 mls/hr Ketorolac Tromethamine (Toradol) 30 mg IVPUSH Q6H PRN PRN Reason: Pain Stop: 02/17/17 17:16 Last Admin: 02/13/17 09:01 Dose: 30 mg Lorazepam (Ativan) 1 - 2 mg PO Q4H PRN; Protocol PRN Reason: Withdrawal Symptoms Quetiapine Fumarate (Seroquel) 25 mg PO BEDTIME [facility] Last Admin: 02/12/17 21:01 Dose: 25 mg Discontinued Medications Chlordiazepoxide HCl (Librium) 25 mg PO BID [facility] Last Admin: 02/12/17 21:01 Dose: 25 mg Dexamethasone (Dexamethasone) Confirm Administered Dose 20 mg .ROUTE .STK-MED ONE Stop: 02/11/17 23:55 Ephedrine Sulfate (Ephedrine Sulfate) 5 mg IVPUSH ASDIRECTED PRN PRN Reason: Hypotension Fentanyl (Sublimaze) Confirm Administered Dose 100 mcg .ROUTE .STK-MED ONE Stop: 02/11/17 22:33 Fentanyl (Sublimaze) Confirm Administered Dose 100 mcg .ROUTE .STK-MED ONE Stop: 02/11/17 23:05 Fentanyl (Sublimaze) 50 mcg IVPUSH Q5M PRN PRN Reason: Pain Stop: 02/11/17 23:27 Last Admin: 02/12/17 02:45 Dose: 50 mcg Fentanyl (Sublimaze) Confirm Administered Dose 250 mcg .ROUTE .STK-MED ONE Stop: 02/11/17 23:56 Fentanyl (Sublimaze) Confirm Administered Dose 100 mcg .ROUTE .STK-MED ONE Stop: 02/12/17 01:58 Last Admin: 02/12/17 11:38 Dose: Not Given Fentanyl (Sublimaze) 50 mcg IVPUSH Q5M PRN PRN Reason: Pain Stop: 02/12/17 02:22 Glycopyrrolate () Confirm Administered Dose 1 mg .ROUTE .STK-MED ONE Stop: 02/12/17 00:51 Hydromorphone HCl (Dilaudid) 0.5 mg IVPUSH ONETIME ONE Stop: 02/11/17 21:16 Last Admin: 02/11/17 21:20 Dose: 0.5 mg Hydromorphone HCl (Dilaudid) Confirm Administered Dose 0.5 mg .ROUTE .STK-MED ONE Stop: 02/11/17 21:20 Last Admin: 02/11/17 21:22 Dose: Not Given Hydromorphone HCl (Dilaudid) 0.5 mg IVPUSH Q15M PRN PRN Reason: severe pain Stop: 02/11/17 23:27 Hydromorphone HCl (Dilaudid) Confirm Administered Dose 1 mg .ROUTE .STK-MED ONE Stop: 02/11/17 23:56 Hydromorphone HCl (Dilaudid) Confirm Administered Dose 1 mg .ROUTE .STK-MED ONE Stop: 02/12/17 00:39 Hydromorphone HCl (Dilaudid) 0.5 mg IVPUSH Q1H PRN PRN Reason: Pain (severe 7-10) Last Admin: 02/12/17 16:44 Dose: 0.5 mg Hydromorphone HCl (Dilaudid) 0.5 mg IVPUSH Q15M PRN PRN Reason: severe pain Stop: 02/12/17 02:22 Last Admin: 02/12/17 03:02 Dose: 0.5 mg Sodium Chloride (Normal Saline) 1,000 mls @ 999 mls/hr IV ONETIME ONE Stop: 02/11/17 22:15 Last Admin: 02/11/17 21:19 Dose: 999 mls/hr Sodium Chloride (Normal Saline) Confirm Administered Dose 1,000 mls @ as directed .ROUTE .STK-MED ONE Stop: 02/11/17 21:21 Last Admin: 02/11/17 21:21 Dose: Not Given Lidocaine HCl (Xylocaine-Mpf 1%) Confirm Administered Dose 4 mls @ as directed .ROUTE .STK-MED ONE Stop: 02/11/17 22:33 Cefoxitin Sodium (Mefoxin In Dextrose,Iso-Osm 2 Gm/50 Ml) Confirm Administered Dose 50 mls @ as directed .ROUTE .STK-MED ONE Stop: 02/11/17 23:14 Phenylephrine HCl 1 mg/ Sodium (Chloride) 10.1 mls @ 1 mls/sec IV TITRATE BRIAN Lidocaine HCl (Xylocaine-Mpf 1%) Confirm Administered Dose 4 mls @ as directed .ROUTE .STK-MED ONE Stop: 02/11/17 23:55 Lactated Ringer's (Ringers, Lactated) Confirm Administered Dose 3,000 mls @ as directed .ROUTE .STK-MED ONE Stop: 02/11/17 23:55 Lactated Ringer's (Ringers, Lactated) Confirm Administered Dose 1,000 mls @ as directed .ROUTE .STK-MED ONE Stop: 02/12/17 00:46 Sodium Chloride (Normal Saline) 1,000 mls @ 125 mls/hr IV ASDIRECTED [facility] Last Admin: 02/12/17 10:17 Dose: 125 mls/hr Cefoxitin Sodium 2 gm/ Sodium (Chloride) 100 mls @ 200 mls/hr IV Q6H [facility] Last Admin: 02/12/17 11:40 Dose: Not Given Magnesium Sulfate 2 gm/ Premix 50 mls @ 25 mls/hr IV ONETIME ONE Stop: 02/12/17 15:55 Last Admin: 02/12/17 14:21 Dose: 25 mls/hr Midazolam HCl (Versed 1 Mg/Ml) Confirm Administered Dose 2 mg .ROUTE .STK-MED ONE Stop: 02/11/17 22:33 Midazolam HCl (Versed 1 Mg/Ml) 2 mg IVPUSH ONETIME PRN PRN Reason: Sedation Midazolam HCl (Versed 1 Mg/Ml) 2 mg IVPUSH ONETIME PRN PRN Reason: Sedation Neostigmine Methylsulfate (Neostigmine) Confirm Administered Dose 5 mg .ROUTE .STK-MED ONE Stop: 02/12/17 00:51 Ondansetron HCl (Zofran) 4 mg IVPUSH ONETIME PRN PRN Reason: Nausea/Vomiting Ondansetron HCl (Zofran) Confirm Administered Dose 4 mg .ROUTE .STK-MED ONE Stop: 02/11/17 23:55 Ondansetron HCl (Zofran) 4 mg IVPUSH Q6H PRN PRN Reason: Nausea/Vomiting Ondansetron HCl (Zofran) 4 mg IVPUSH ONETIME PRN PRN Reason: Nausea/Vomiting Pneumococcal Polyvalent Vaccine (Pneumovax 23) 0.5 ml IM .ONCE ONE Stop: 02/12/17 08:15 Propofol (Diprivan 20 Ml) Confirm Administered Dose 200 mg .ROUTE .STK-MED ONE Stop: 02/11/17 22:33 Propofol (Diprivan 20 Ml) Confirm Administered Dose 200 mg .ROUTE .STK-MED ONE Stop: 02/11/17 23:56 Rocuronium [place] (Zemuron) Confirm Administered Dose 50 mg .ROUTE .STK-MED ONE Stop: 02/11/17 23:55 Rocuronium [place] (Zemuron) Confirm Administered Dose 50 mg .ROUTE .STK-MED ONE Stop: 02/12/17 01:03 - Exam General: alert, cooperative, no acute distress HEENT: Pupils equal, Pupils reactive, Mucous membr. moist/pink Neck: supple, trachea midline Lungs: Normal respiratory effort, Decreased breath sounds Cardiovascular: Regular Rate, Regular Rhythm Abdomen: soft, no distension, tenderness, abnormal bowel sounds, other (midline incision: clean, intact and dry; ileostomy bag on the right abdomen with watery diarrhea) (Male) Exam: Deferred Back Exam: Normal Inspection, Decreased Range of Motion Extremities: normal pulses, no tenderness/swelling, no cyanosis Peripheral Pulses: 3+: Posterior Tibial (L), Posterior Tibial (R), Dorsalis Pedis (L), Dorsalis Pedis (R) Skin: warm, dry, intact Wound/Incisions: healing well, dressing dry and intact, no drainage Neurological: no new focal deficit Psy/Mental Status: alert, normal affect, normal mood Consult PN Assessment/Plan POD#: 2 Problem List Initiated/Reviewed/Updated: Yes Plan: Assessment: Polysubstance abuse (marijuana, methamphetamine/amphetamine, ETOH), CIWA score is zero Abdominal pain with insertion of foreign body/tooth brush POD 2, S/P Exp Lap with primary closure; 1 cm proximal Sigmoid Perforation with creation of a loop ileostomy, pain management defer to primary team Hypotension, currently started on LR, defer to primary team for further management Query sexually transmitted disease in the setting of misadventure, gonorrhea and chlamydia screening negative, RPR negative Plan: Patient is clinically stable May transfer to [facility] with Tele once pressure improves Continue CIWA protocol PO status as per primary team Antibiotic/Pain meds per primary service Substance Abuse and Psychiatric consult Wound Care per primary Encourage to ambulate TID-QID as tolerated Additional orders as above Continue PT/OT
--- NOTE | 2017-02-13 09:53 | PCM.SURGPN ---
- General Info Date of Service: 02/13/17 POD#: 2 Functional Status: Reports: pain controlled, urinating - Review of Systems Gastrointestinal: Reports: Abdominal pain (Incisional), Diarrhea (Ileostomy output), Flatus - Patient Data Vitals - most recent: Last Vital Signs Temp 36.7 C 02/13/17 08:00 Pulse 65 02/13/17 04:00 Resp 14 02/13/17 08:00 BP 87/67 L 02/13/17 08:00 Pulse Ox 98 02/13/17 08:00 Weight - most recent: 66.678 kg I&O - last 24 hours: Intake & Output 02/12/17 02/13/17 02/13/17 22:59 06:59 14:59 Intake Total 1785 169 Output Total 685 450 Balance 1100 -281 Lab Results last 24 hrs: Laboratory Results - last 24 hr 02/12/17 02/12/17 02/13/17 Range/Units 10:05 10:05 05:46 WBC 8.07 (4.23-9.07) K/mm3 RBC 3.54 L (4.63-6.08) M/mm3 Hgb 10.8 L (13.7-17.5) gm/L Hct 33.1 L (40.1-51.0) % MCV 93.5 H (79.0-92.2) fl MCH 30.5 (25.7-32.2) pg MCHC 32.6 (32.2-35.5) g/dl RDW Std Deviation 41.5 (35.1-43.9) fL Plt Count 171 (163-337) K/mm3 MPV 10.2 (9.4-12.3) fl Neut % (Auto) 83.6 H (34.0-67.9) % Lymph % (Auto) 12.0 L (21.8-53.1) % [place] % (Auto) 3.2 L (5.3-12.2) % Eos % (Auto) 0.9 (0.8-7.0) Baso % (Auto) 0.2 (0.1-1.2) % Neut # (Auto) 6.74 H (1.78-5.38) K/mm3 Lymph # (Auto) 0.97 L (1.32-3.57) K/mm3 [place] # (Auto) 0.26 L (0.30-0.82) K/mm3 Eos # (Auto) 0.07 (0.04-0.54) K/mm3 Baso # (Auto) 0.02 (0.01-0.08) K/mm3 Sodium (136-145) mEq/L Potassium (3.5-5.1) mEq/L Chloride (98-107) mEq/L Carbon Dioxide (21-32) mEq/L Anion Gap (5-15) BUN (7-18) mg/dL Creatinine (0.7-1.3) mg/dL Est Cr Clr Drug Dosing mL/min Estimated GFR (MDRD) (>60) mL/min BUN/Creatinine Ratio (14-18) Glucose (74-106) mg/dL Calcium (8.5-10.1) mg/dL Magnesium (1.8-2.4) mg/dl Urine Opiates Screen Presumptive positive H (NEGATIVE) Ur Buprenorphine Scrn Negative (NEGATIVE) Ur Oxycodone Screen Negative (NEGATIVE) Urine Methadone Screen Negative (NEGATIVE) Ur Propoxyphene Screen Negative (NEGATIVE) Ur Barbiturates Screen Negative (NEGATIVE) Ur Tricyclics Screen Negative (NEGATIVE) Ur Phencyclidine Scrn Negative (NEGATIVE) Ur Amphetamine Screen Presumptive positive H (NEGATIVE) U Methamphetamines Scrn Presumptive positive H (NEGATIVE) U Benzodiazepines Scrn Negative (NEGATIVE) U Cocaine Metab Screen Negative (NEGATIVE) U Marijuana (THC) Screen Negative (NEGATIVE) C trachomatis DNA (PCR) Not detected N gonorrhoeae DNA (PCR) Not detected 02/13/17 Range/Units 05:46 WBC (4.23-9.07) K/mm3 RBC (4.63-6.08) M/mm3 Hgb (13.7-17.5) gm/L Hct (40.1-51.0) % MCV (79.0-92.2) fl MCH (25.7-32.2) pg MCHC (32.2-35.5) g/dl RDW Std Deviation (35.1-43.9) fL Plt Count (163-337) K/mm3 MPV (9.4-12.3) fl Neut % (Auto) (34.0-67.9) % Lymph % (Auto) (21.8-53.1) % [place] % (Auto) (5.3-12.2) % Eos % (Auto) (0.8-7.0) Baso % (Auto) (0.1-1.2) % Neut # (Auto) (1.78-5.38) K/mm3 Lymph # (Auto) (1.32-3.57) K/mm3 [place] # (Auto) (0.30-0.82) K/mm3 Eos # (Auto) (0.04-0.54) K/mm3 Baso # (Auto) (0.01-0.08) K/mm3 Sodium 137 (136-145) mEq/L Potassium 3.7 (3.5-5.1) mEq/L Chloride 103 (98-107) mEq/L Carbon Dioxide 27 (21-32) mEq/L Anion Gap 10.7 (5-15) BUN 11 (7-18) mg/dL Creatinine 0.9 (0.7-1.3) mg/dL Est Cr Clr Drug Dosing 93.53 mL/min Estimated GFR (MDRD) > 60 (>60) mL/min BUN/Creatinine Ratio 12.2 L (14-18) Glucose 119 H (74-106) mg/dL Calcium 8.0 L (8.5-10.1) mg/dL Magnesium 2.4 (1.8-2.4) mg/dl Urine Opiates Screen (NEGATIVE) Ur Buprenorphine Scrn (NEGATIVE) Ur Oxycodone Screen (NEGATIVE) Urine Methadone Screen (NEGATIVE) Ur Propoxyphene Screen (NEGATIVE) Ur Barbiturates Screen (NEGATIVE) Ur Tricyclics Screen (NEGATIVE) Ur Phencyclidine Scrn (NEGATIVE) Ur Amphetamine Screen (NEGATIVE) U Methamphetamines Scrn (NEGATIVE) U Benzodiazepines Scrn (NEGATIVE) U Cocaine Metab Screen (NEGATIVE) U Marijuana (THC) Screen (NEGATIVE) C trachomatis DNA (PCR) N gonorrhoeae DNA (PCR) Med Orders - Current: Current Medications Chlordiazepoxide HCl (Librium) 25 mg PO TID [facility] Last Admin: 02/13/17 09:02 Dose: 25 mg Cyclobenzaprine HCl (Flexeril) 10 mg PO BID [facility] Last Admin: 02/13/17 08:36 Dose: Not Given Famotidine (Pepcid) 20 mg IVPUSH BID [facility] Last Admin: 02/13/17 09:01 Dose: 20 mg Hydromorphone HCl (Dilaudid) 1 mg IVPUSH Q1H PRN PRN Reason: pain Last Admin: 02/13/17 09:22 Dose: 1 mg Cefoxitin Sodium 2 gm/ Premix 50 mls @ 100 mls/hr IV Q8HR [facility] Last Admin: 02/13/17 05:39 Dose: 100 mls/hr Lactated Ringer's (Ringers, Lactated) 1,000 mls @ 100 mls/hr IV ASDIRECTED [facility] Last Admin: 02/13/17 09:03 Dose: 100 mls/hr Ketorolac Tromethamine (Toradol) 30 mg IVPUSH Q6H PRN PRN Reason: Pain Stop: 02/17/17 17:16 Last Admin: 02/13/17 09:01 Dose: 30 mg Lorazepam (Ativan) 1 - 2 mg PO Q4H PRN; Protocol PRN Reason: Withdrawal Symptoms Quetiapine Fumarate (Seroquel) 25 mg PO BEDTIME [facility] Last Admin: 02/12/17 21:01 Dose: 25 mg Discontinued Medications Chlordiazepoxide HCl (Librium) 25 mg PO BID [facility] Last Admin: 02/12/17 21:01 Dose: 25 mg Dexamethasone (Dexamethasone) Confirm Administered Dose 20 mg .ROUTE .STK-MED ONE Stop: 02/11/17 23:55 Ephedrine Sulfate (Ephedrine Sulfate) 5 mg IVPUSH ASDIRECTED PRN PRN Reason: Hypotension Fentanyl (Sublimaze) Confirm Administered Dose 100 mcg .ROUTE .STK-MED ONE Stop: 02/11/17 22:33 Fentanyl (Sublimaze) Confirm Administered Dose 100 mcg .ROUTE .STK-MED ONE Stop: 02/11/17 23:05 Fentanyl (Sublimaze) 50 mcg IVPUSH Q5M PRN PRN Reason: Pain Stop: 02/11/17 23:27 Last Admin: 02/12/17 02:45 Dose: 50 mcg Fentanyl (Sublimaze) Confirm Administered Dose 250 mcg .ROUTE .STK-MED ONE Stop: 02/11/17 23:56 Fentanyl (Sublimaze) Confirm Administered Dose 100 mcg .ROUTE .STK-MED ONE Stop: 02/12/17 01:58 Last Admin: 02/12/17 11:38 Dose: Not Given Fentanyl (Sublimaze) 50 mcg IVPUSH Q5M PRN PRN Reason: Pain Stop: 02/12/17 02:22 Glycopyrrolate () Confirm Administered Dose 1 mg .ROUTE .STK-MED ONE Stop: 02/12/17 00:51 Hydromorphone HCl (Dilaudid) 0.5 mg IVPUSH ONETIME ONE Stop: 02/11/17 21:16 Last Admin: 02/11/17 21:20 Dose: 0.5 mg Hydromorphone HCl (Dilaudid) Confirm Administered Dose 0.5 mg .ROUTE .STK-MED ONE Stop: 02/11/17 21:20 Last Admin: 02/11/17 21:22 Dose: Not Given Hydromorphone HCl (Dilaudid) 0.5 mg IVPUSH Q15M PRN PRN Reason: severe pain Stop: 02/11/17 23:27 Hydromorphone HCl (Dilaudid) Confirm Administered Dose 1 mg .ROUTE .STK-MED ONE Stop: 02/11/17 23:56 Hydromorphone HCl (Dilaudid) Confirm Administered Dose 1 mg .ROUTE .STK-MED ONE Stop: 02/12/17 00:39 Hydromorphone HCl (Dilaudid) 0.5 mg IVPUSH Q1H PRN PRN Reason: Pain (severe 7-10) Last Admin: 02/12/17 16:44 Dose: 0.5 mg Hydromorphone HCl (Dilaudid) 0.5 mg IVPUSH Q15M PRN PRN Reason: severe pain Stop: 02/12/17 02:22 Last Admin: 02/12/17 03:02 Dose: 0.5 mg Sodium Chloride (Normal Saline) 1,000 mls @ 999 mls/hr IV ONETIME ONE Stop: 02/11/17 22:15 Last Admin: 02/11/17 21:19 Dose: 999 mls/hr Sodium Chloride (Normal Saline) Confirm Administered Dose 1,000 mls @ as directed .ROUTE .STK-MED ONE Stop: 02/11/17 21:21 Last Admin: 02/11/17 21:21 Dose: Not Given Lidocaine HCl (Xylocaine-Mpf 1%) Confirm Administered Dose 4 mls @ as directed .ROUTE .STK-MED ONE Stop: 02/11/17 22:33 Cefoxitin Sodium (Mefoxin In Dextrose,Iso-Osm 2 Gm/50 Ml) Confirm Administered Dose 50 mls @ as directed .ROUTE .[facility] ONE Stop: 02/11/17 23:14 Phenylephrine HCl 1 mg/ Sodium (Chloride) 10.1 mls @ 1 mls/sec IV TITRATE [facility] Lidocaine HCl (Xylocaine-Mpf 1%) Confirm Administered Dose 4 mls @ as directed .ROUTE .[facility] ONE Stop: 02/11/17 23:55 Lactated Ringer's (Ringers, Lactated) Confirm Administered Dose 3,000 mls @ as directed .ROUTE .[facility] ONE Stop: 02/11/17 23:55 Lactated Ringer's (Ringers, Lactated) Confirm Administered Dose 1,000 mls @ as directed .ROUTE .[facility] ONE Stop: 02/12/17 00:46 Sodium Chloride (Normal Saline) 1,000 mls @ 125 mls/hr IV ASDIRECTED [facility] Last Admin: 02/12/17 10:17 Dose: 125 mls/hr Cefoxitin Sodium 2 gm/ Sodium (Chloride) 100 mls @ 200 mls/hr IV Q6H [facility] Last Admin: 02/12/17 11:40 Dose: Not Given Magnesium Sulfate 2 gm/ Premix 50 mls @ 25 mls/hr IV ONETIME ONE Stop: 02/12/17 15:55 Last Admin: 02/12/17 14:21 Dose: 25 mls/hr Midazolam HCl (Versed 1 Mg/Ml) Confirm Administered Dose 2 mg .ROUTE .[facility] ONE Stop: 02/11/17 22:33 Midazolam HCl (Versed 1 Mg/Ml) 2 mg IVPUSH ONETIME PRN PRN Reason: Sedation Midazolam HCl (Versed 1 Mg/Ml) 2 mg IVPUSH ONETIME PRN PRN Reason: Sedation Neostigmine Methylsulfate (Neostigmine) Confirm Administered Dose 5 mg .ROUTE .[facility] ONE Stop: 02/12/17 00:51 Ondansetron HCl (Zofran) 4 mg IVPUSH ONETIME PRN PRN Reason: Nausea/Vomiting Ondansetron HCl (Zofran) Confirm Administered Dose 4 mg .ROUTE .[facility] ONE Stop: 02/11/17 23:55 Ondansetron HCl (Zofran) 4 mg IVPUSH Q6H PRN PRN Reason: Nausea/Vomiting Ondansetron HCl (Zofran) 4 mg IVPUSH ONETIME PRN PRN Reason: Nausea/Vomiting Pneumococcal Polyvalent Vaccine (Pneumovax 23) 0.5 ml IM .ONCE ONE Stop: 02/12/17 08:15 Propofol (Diprivan 20 Ml) Confirm Administered Dose 200 mg .ROUTE .STK-MED ONE Stop: 02/11/17 22:33 Propofol (Diprivan 20 Ml) Confirm Administered Dose 200 mg .ROUTE .STK-MED ONE Stop: 02/11/17 23:56 Rocuronium Crucible (Zemuron) Confirm Administered Dose 50 mg .ROUTE .STK-MED ONE Stop: 02/11/17 23:55 Rocuronium Crucible (Zemuron) Confirm Administered Dose 50 mg .ROUTE .STK-MED ONE Stop: 02/12/17 01:03 - Exam Wound/Incisions: dressing dry and intact Abdomen: no distension, other (Functioning ileostomy, pink ileal mucosa) - Problem List & Annotations (1) Rectal foreign body SNOMED Code(s): 99298847 Code(s): T18.5XXA - FOREIGN BODY IN ANUS AND RECTUM, INITIAL ENCOUNTER Status: Acute Priority: High Current Visit: Yes Qualifiers: Encounter type: initial encounter Qualified Code(s): T18.5XXA - Foreign body in anus and rectum, initial encounter - Problem List Review Problem List Initiated/Reviewed/Updated: Yes - My Orders Last 24 Hours: Active Orders 24 hr Category Date Time Status Admission Status [Patient Status] [ADT] Routine ADT 02/12/17 09:47 Active Antiembolic Devices [RC] BID Care 02/13/17 07:37 Active Full Liquid Diet [DIET] Diet 02/13/17 Lunch Ordered HEPATITIS PANEL, ACUTE [REF] Routine Lab 02/12/17 12:07 Received Cyclobenzaprine [Flexeril] Med 02/12/17 21:00 Active 10 mg PO BID Famotidine [Pepcid] Med 02/12/17 09:00 Active 20 mg IVPUSH BID HYDROmorphone [Dilaudid] Med 02/12/17 17:16 Active 1 mg IVPUSH Q1H PRN Ketorolac [Toradol] Med 02/12/17 17:15 Active 30 mg IVPUSH Q6H PRN Lactated Ringers [Ringers, Lactated] 1,000 ml Med 02/13/17 08:45 Active IV ASDIRECTED QUEtiapine [SEROquel] Med 02/12/17 21:00 Active 25 mg PO BEDTIME chlordiazePOXIDE [Librium] Med 02/13/17 09:00 Active 25 mg PO TID SCD [Sequential Compression Device] [OM.PC] Routine Oth 02/13/17 07:37 Ordered Medication Orders Chlordiazepoxide HCl (Librium) 25 mg PO TID [facility] Last Admin: 02/13/17 09:02 Dose: 25 mg Cyclobenzaprine HCl (Flexeril) 10 mg PO BID [facility] Last Admin: 02/13/17 08:36 Dose: Admin: 02/12/17 21:01 Dose: 10 mg Famotidine (Pepcid) 20 mg IVPUSH BID [facility] Last Admin: 02/13/17 09:01 Dose: 20 mg Admin: 02/12/17 21:01 Dose: 20 mg Admin: 02/12/17 09:42 Dose: 20 mg Hydromorphone HCl (Dilaudid) 1 mg IVPUSH Q1H PRN PRN Reason: pain Last Admin: 02/13/17 09:22 Dose: 1 mg Admin: 02/13/17 02:14 Dose: 1 mg Admin: 02/12/17 17:50 Dose: 1 mg Cefoxitin Sodium 2 gm/ Premix 50 mls @ 100 mls/hr IV Q8HR [facility] Last Admin: 02/13/17 05:39 Dose: 100 mls/hr Infusion: 02/12/17 21:31 Dose: 100 mls/hr Admin: 02/12/17 21:01 Dose: 100 mls/hr Infusion: 02/12/17 14:51 Dose: 100 mls/hr Admin: 02/12/17 14:21 Dose: 100 mls/hr Infusion: 02/12/17 06:30 Dose: 100 mls/hr Admin: 02/12/17 06:00 Dose: 100 mls/hr Lactated Ringer's (Ringers, Lactated) 1,000 mls @ 100 mls/hr IV ASDIRECTED [facility] Last Admin: 02/13/17 09:03 Dose: 100 mls/hr Ketorolac Tromethamine (Toradol) 30 mg IVPUSH Q6H PRN PRN Reason: Pain Stop: 02/17/17 17:16 Last Admin: 02/13/17 09:01 Dose: 30 mg Admin: 02/13/17 02:13 Dose: 30 mg Admin: 02/12/17 17:51 Dose: 30 mg Lorazepam (Ativan) 1 - 2 mg PO Q4H PRN; Protocol PRN Reason: Withdrawal Symptoms Quetiapine Fumarate (Seroquel) 25 mg PO BEDTIME [facility] Last Admin: 02/12/17 21:01 Dose: 25 mg - Assessment Assessment (Free Text/Narrative):: imp: Stable, ileostomy functioning with liquid and gas production in the bag. No withdrawal signs or symptoms. plan: Advance diet. Ambulation today.
[2017-02-13] MEDS ORDERED: Diphtheria,Pertussis(Acell),Tetanus Vaccine 0.5 ML SDV IM ONE (13:00)
[2017-02-13] MEDS: Acetaminophen 325 MG Tab PO PRN (20:07)
[2017-02-13] MEDS: QUEtiapine 25 MG Tab PO SCH (20:58)
--- NOTE | 2017-02-13 21:03 | CONS ---
CONSULTING PHYSICIAN: Louis Tian MD DATE OF CONSULTATION: 02/13/2017 This is a 60-minute clinical event. IDENTIFICATION: The patient is a 46-year-old male, who is admitted to the MICU on 02/11/2017, secondary to a perforated large colon. He is seen for psychiatric evaluation. CHIEF COMPLAINT: "I got a hole in my intestine and they operated on me." HISTORY OF PRESENT ILLNESS: The patient is a 46-year-old male, who reports that he had been drinking "about a 6 pack a day." When he started having pain in his abdomen, he had to come to the hospital for evaluation. He was brought by his friend. 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 He is denying that he has any problems with drinking, stating that he also used meth just prior to admission, but he notes "just one time" and denies that he had used it before this admission. Per nursing staff, he report the patient was intoxicated from alcohol and also high on meth and attempted to stimulate his prostate by inserting toothbrush into his rectum and this is what caused the perforation of the sigmoid colon. He developed peritonitis and he subsequently had to have surgery after presenting to the ER, now has an ileostomy bag. The patient states that he has quite a bit of abdominal pain at the moment. He states however "I am not depressed." Denies any history of depression. Denies any history of anxiety. He does not feel he needs psychiatric medications. He does not feel he has a drinking problem or drug problem either stating again "That's what we do in construction, after we are done with working, we will drink." The patient just wants to get better and get back to work. He denies any suicidal or homicidal. He denies any psychotic, delusional, or paranoid symptoms. MEDICATION: At the time of admission, none. ALLERGIES: No known drug allergies. PAST MEDICAL HISTORY: 1. Status post perforated sigmoid colon. 2. Status post abdominal surgery with ileostomy bag. REVIEW OF SYSTEMS: Aside from GI all other major organ systems are negative at this point in time for acute difficulties complications. FAMILY, PSYCHIATRIC AND CD HISTORY: None reported. PAST PSYCHIATRIC HISTORY AND CD HISTORY: The patient denies any previous psychiatric hospitalizations or chemical dependency treatments. Denies any previous suicide attempts, self-injurious behavior. Past psychiatric medication history, states he has been using a 6 pack of beer a day per routine, states he use meth just for the first time prior to admission. Denies any other illicit substance use. SOCIAL HISTORY: The patient was born and raised in [place], came [place] the [place] mother at 19 years of age. He is . He has a and a child back in [facility]. He lives in [place], [place] right now and is working in construction. He has a roommate. MENTAL STATUS EXAM: The patient is a 46-year-old, [place] male in pain and discomfort when speaking. Speech, however is regular rate and rhythm. The patient is cognitively oriented. Psychomotor activity appears within normal limits. There is no abnormal motor movements or tics observed. Gait and station are not observed. This patient is bedbound during the course of the interview. Mood is in pain. Affect is consistent with stated mood and cooperative overall for the purposes of the inpatient consult. There is no behavioral or stated evidence of acute suicidal or homicidal ideation or acute psychotic, delusional, or paranoid symptoms. Thought processes appear organized. There are no acute manic symptoms, loose associations evident. Judgment and insight appear perhaps somewhat impaired due to the nature of his possible alcohol use and drug use, but overall not impaired to the patient appears to be in acute danger to himself or others. Motivation for help appears fair to poor. Vitals 85/62, 69, 12, 98 degrees. IMPRESSION: Igo I. 1. Alcohol dependence F10.20. 2. Suspected methamphetamine dependence versus abuse. 3. Depression, not otherwise specified, F32.9. Igo II: None. Igo III: 1. Status post perforated colon. 2. Status post GI surgery with ileostomy placement due to peritonitis and perforated colon. Igo IV: Severe. Igo V: 55. PLAN: 1. Sobriety. 2. CD consult to assess the need for patient to have chemical dependency treatment particularly while he is recuperating from his recent surgery, he is unable to return to work this may be beneficial for the patient. 3. AA rep to visit the patient. 4. Pastoral guidance. 5. Would recommend holding off on psychiatric medications at this point in time, this patient is denying any symptoms of depression or anxiety, not displaying any indication that he would require psychiatric medications going forward. 6. We will continue follow up with the patient on as needed basis going forward while he remains in the MICU unit. 7. We will follow up with the patient sooner if any complications in the interim. 8. Crisis plan is in place. JESSICA /[id number]
[2017-02-14] MEDS: Ketorolac 30 MG/ML SDV IVPUSH PRN ×3 (01:22→16:31)
[2017-02-14] MEDS: HYDROmorphone 1 MG/ML Syringe IVPUSH PRN ×4 (01:23→22:08)
[2017-02-14] MEDS: Lactated Ringers 1,000 ML IV SCH ×3 (01:54→22:55)
[2017-02-14] MEDS: cefOXitin 2 GM in Premix Bag 1 BAG IV SCH ×3 (05:07→22:03)
[2017-02-14] MEDS: Cyclobenzaprine 10 MG Tab PO SCH ×2 (08:02→20:16)
[2017-02-14] MEDS: chlordiazePOXIDE 25 MG Cap PO SCH ×3 (08:02→22:04)
[2017-02-14] MEDS: Famotidine 20 MG/2 ML SDV IVPUSH SCH ×2 (08:03→20:18)
--- NOTE | 2017-02-14 08:42 | PCM.CONSN ---
- General Info Date of Service: 02/14/17 Admission Dx/Problem (Free Text): Consultation: Substance Abuse and ETOH Withdrawal Subjective Update: Follow Up Functional Status: Reports: pain controlled, tolerating diet - Review of Systems General: Denies: Fever, Weakness, Fatigue, Malaise, Chills HEENT: Reports: no symptoms Pulmonary: Denies: shortness of breath Cardiovascular: Denies: Chest Pain Gastrointestinal: Denies: Abdominal pain, Diarrhea, Nausea, Vomiting Genitourinary: Reports: no symptoms Musculoskeletal: Reports: no symptoms Skin: Denies: cyanosis, bruising, pruritis, rash Neurological: Denies: Confusion, Difficulty Walking, Weakness, Gait Disturbance Psychiatric: Denies: depression, anxiety, agitation, hallucinations Systems Review Comment:: No overnight or acute issues. His CIWA score remains low bet 0-1. His BP has significantly improved. He has no new complaints. - Patient Data Vitals - most recent: Last Vital Signs Temp 36.8 C 02/14/17 04:00 Pulse 66 02/14/17 04:00 Resp 12 02/14/17 04:00 BP 107/80 02/14/17 04:00 Pulse Ox 92 L 02/14/17 04:00 Weight - most recent: 66.905 kg I&O - last 24 hours: Intake & Output 02/13/17 02/14/17 02/14/17 22:59 06:59 14:59 Intake Total 3889 955 Output Total 450 625 Balance 3439 330 Lab Results last 24 hrs: Laboratory Results - last 24 hr 02/12/17 Range/Units 05:48 RPR Non-reac (Non-Reac) Med Orders - Current: Current Medications Acetaminophen (Tylenol) 650 mg PO Q4H PRN PRN Reason: pain/fever Last Admin: 02/13/17 20:07 Dose: 650 mg Chlordiazepoxide HCl (Librium) 25 mg PO TID [facility] Last Admin: 02/14/17 08:02 Dose: 25 mg Cyclobenzaprine HCl (Flexeril) 10 mg PO BID [facility] Last Admin: 02/14/17 08:02 Dose: 10 mg Famotidine (Pepcid) 20 mg IVPUSH BID [facility] Last Admin: 02/14/17 08:03 Dose: 20 mg Hydromorphone HCl (Dilaudid) 1 mg IVPUSH Q1H PRN PRN Reason: pain Last Admin: 02/14/17 01:23 Dose: 1 mg Cefoxitin Sodium 2 gm/ Premix 50 mls @ 100 mls/hr IV Q8HR [facility] Last Admin: 02/14/17 05:07 Dose: 100 mls/hr Lactated Ringer's (Ringers, Lactated) 1,000 mls @ 100 mls/hr IV ASDIRECTED [facility] Last Admin: 02/14/17 01:54 Dose: 100 mls/hr Ketorolac Tromethamine (Toradol) 30 mg IVPUSH Q6H PRN PRN Reason: Pain Stop: 02/17/17 17:16 Last Admin: 02/14/17 08:02 Dose: 30 mg Lorazepam (Ativan) 1 - 2 mg PO Q4H PRN; Protocol PRN Reason: Withdrawal Symptoms Quetiapine Fumarate (Seroquel) 25 mg PO BEDTIME [facility] Last Admin: 02/13/17 20:58 Dose: 25 mg Discontinued Medications Chlordiazepoxide HCl (Librium) 25 mg PO BID [facility] Last Admin: 02/12/17 21:01 Dose: 25 mg Dexamethasone (Dexamethasone) Confirm Administered Dose 20 mg .ROUTE .STK-MED ONE Stop: 02/11/17 23:55 Diphtheria/Tetanus/Acell Pertussis (Adacel) 0.5 ml IM .ONCE ONE Stop: 02/13/17 13:01 Ephedrine Sulfate (Ephedrine Sulfate) 5 mg IVPUSH ASDIRECTED PRN PRN Reason: Hypotension Fentanyl (Sublimaze) Confirm Administered Dose 100 mcg .ROUTE .STK-MED ONE Stop: 02/11/17 22:33 Fentanyl (Sublimaze) Confirm Administered Dose 100 mcg .ROUTE .STK-MED ONE Stop: 02/11/17 23:05 Fentanyl (Sublimaze) 50 mcg IVPUSH Q5M PRN PRN Reason: Pain Stop: 02/11/17 23:27 Last Admin: 02/12/17 02:45 Dose: 50 mcg Fentanyl (Sublimaze) Confirm Administered Dose 250 mcg .ROUTE .STK-MED ONE Stop: 02/11/17 23:56 Fentanyl (Sublimaze) Confirm Administered Dose 100 mcg .ROUTE .STK-MED ONE Stop: 02/12/17 01:58 Last Admin: 02/12/17 11:38 Dose: Not Given Fentanyl (Sublimaze) 50 mcg IVPUSH Q5M PRN PRN Reason: Pain Stop: 02/12/17 02:22 Glycopyrrolate () Confirm Administered Dose 1 mg .ROUTE .STK-MED ONE Stop: 02/12/17 00:51 Hydromorphone HCl (Dilaudid) 0.5 mg IVPUSH ONETIME ONE Stop: 02/11/17 21:16 Last Admin: 02/11/17 21:20 Dose: 0.5 mg Hydromorphone HCl (Dilaudid) Confirm Administered Dose 0.5 mg .ROUTE .STK-MED ONE Stop: 02/11/17 21:20 Last Admin: 02/11/17 21:22 Dose: Not Given Hydromorphone HCl (Dilaudid) 0.5 mg IVPUSH Q15M PRN PRN Reason: severe pain Stop: 02/11/17 23:27 Hydromorphone HCl (Dilaudid) Confirm Administered Dose 1 mg .ROUTE .STK-MED ONE Stop: 02/11/17 23:56 Hydromorphone HCl (Dilaudid) Confirm Administered Dose 1 mg .ROUTE .STK-MED ONE Stop: 02/12/17 00:39 Hydromorphone HCl (Dilaudid) 0.5 mg IVPUSH Q1H PRN PRN Reason: Pain (severe 7-10) Last Admin: 02/12/17 16:44 Dose: 0.5 mg Hydromorphone HCl (Dilaudid) 0.5 mg IVPUSH Q15M PRN PRN Reason: severe pain Stop: 02/12/17 02:22 Last Admin: 02/12/17 03:02 Dose: 0.5 mg Sodium Chloride (Normal Saline) 1,000 mls @ 999 mls/hr IV ONETIME ONE Stop: 02/11/17 22:15 Last Admin: 02/11/17 21:19 Dose: 999 mls/hr Sodium Chloride (Normal Saline) Confirm Administered Dose 1,000 mls @ as directed .ROUTE .STK-MED ONE Stop: 02/11/17 21:21 Last Admin: 02/11/17 21:21 Dose: Not Given Lidocaine HCl (Xylocaine-Mpf 1%) Confirm Administered Dose 4 mls @ as directed .ROUTE .STK-MED ONE Stop: 02/11/17 22:33 Cefoxitin Sodium (Mefoxin In Dextrose,Iso-Osm 2 Gm/50 Ml) Confirm Administered Dose 50 mls @ as directed .ROUTE .[facility] ONE Stop: 02/11/17 23:14 Phenylephrine HCl 1 mg/ Sodium (Chloride) 10.1 mls @ 1 mls/sec IV TITRATE [facility] Lidocaine HCl (Xylocaine-Mpf 1%) Confirm Administered Dose 4 mls @ as directed .ROUTE .[facility] ONE Stop: 02/11/17 23:55 Lactated Ringer's (Ringers, Lactated) Confirm Administered Dose 3,000 mls @ as directed .ROUTE .[facility] ONE Stop: 02/11/17 23:55 Lactated Ringer's (Ringers, Lactated) Confirm Administered Dose 1,000 mls @ as directed .ROUTE .[facility] ONE Stop: 02/12/17 00:46 Sodium Chloride (Normal Saline) 1,000 mls @ 125 mls/hr IV ASDIRECTED [facility] Last Admin: 02/12/17 10:17 Dose: 125 mls/hr Cefoxitin Sodium 2 gm/ Sodium (Chloride) 100 mls @ 200 mls/hr IV Q6H [facility] Last Admin: 02/12/17 11:40 Dose: Not Given Magnesium Sulfate 2 gm/ Premix 50 mls @ 25 mls/hr IV ONETIME ONE Stop: 02/12/17 15:55 Last Admin: 02/12/17 14:21 Dose: 25 mls/hr Midazolam HCl (Versed 1 Mg/Ml) Confirm Administered Dose 2 mg .ROUTE .[facility] ONE Stop: 02/11/17 22:33 Midazolam HCl (Versed 1 Mg/Ml) 2 mg IVPUSH ONETIME PRN PRN Reason: Sedation Midazolam HCl (Versed 1 Mg/Ml) 2 mg IVPUSH ONETIME PRN PRN Reason: Sedation Neostigmine Methylsulfate (Neostigmine) Confirm Administered Dose 5 mg .ROUTE .[facility] ONE Stop: 02/12/17 00:51 Ondansetron HCl (Zofran) 4 mg IVPUSH ONETIME PRN PRN Reason: Nausea/Vomiting Ondansetron HCl (Zofran) Confirm Administered Dose 4 mg .ROUTE .ST-MED ONE Stop: 02/11/17 23:55 Ondansetron HCl (Zofran) 4 mg IVPUSH Q6H PRN PRN Reason: Nausea/Vomiting Ondansetron HCl (Zofran) 4 mg IVPUSH ONETIME PRN PRN Reason: Nausea/Vomiting Pneumococcal Polyvalent Vaccine (Pneumovax 23) 0.5 ml IM .ONCE ONE Stop: 02/12/17 08:15 Propofol (Diprivan 20 Ml) Confirm Administered Dose 200 mg .ROUTE .STK-MED ONE Stop: 02/11/17 22:33 Propofol (Diprivan 20 Ml) Confirm Administered Dose 200 mg .ROUTE .STK-MED ONE Stop: 02/11/17 23:56 Rocuronium [place] (Zemuron) Confirm Administered Dose 50 mg .ROUTE .STK-MED ONE Stop: 02/11/17 23:55 Rocuronium [place] (Zemuron) Confirm Administered Dose 50 mg .ROUTE .STK-MED ONE Stop: 02/12/17 01:03 - Exam General: alert, oriented, cooperative, no acute distress, other (sweating ) HEENT: Pupils equal, Pupils reactive, Mucous membr. moist/pink Neck: supple, trachea midline, no JVD, no thyromegaly Lungs: Normal respiratory effort, Decreased breath sounds Cardiovascular: Regular Rate, Regular Rhythm Abdomen: bowel sounds present, soft, no distension, other (midline surgical incision; clean, dry and intact; ileostomy bag on the right side) (Male) Exam: Other (indwelling hernandez catheter) Back Exam: Decreased Range of Motion Extremities: no edema, normal pulses, no tenderness/swelling, no clubbing, no cyanosis Peripheral Pulses: 2+: Posterior Tibial (L), Posterior Tibial (R), Dorsalis Pedis (L), Dorsalis Pedis (R) Skin: warm, dry, intact Wound/Incisions: healing well, dressing dry and intact, no drainage Neurological: no new focal deficit Psy/Mental Status: alert, normal affect, normal mood, anxious. No: depressed, suicidal ideation Consult PN Assessment/Plan POD#: 3 Problem List Initiated/Reviewed/Updated: Yes My Orders last 24 hours: My Active Orders 02/13/17 10:57 Vaccines to be Administered [RC] .DISCHARGE 02/13/17 11:54 Consult to Occupational Therapy [OT Evaluation and Treatment] [CONS] Routine Consult to Physical Therapy [PT Evaluation and Treatment] [CONS] Routine Plan: Assessment: Polysubstance abuse (marijuana, methamphetamine/amphetamine, ETOH), CIWA score remains low Abdominal pain with insertion of foreign body/tooth brush POD 2, S/P Exp Lap with primary closure; 1 cm proximal Sigmoid Perforation with creation of a loop ileostomy, pain management defer to primary team Evolving Peritonitis, peritoneal fluid pos for polybacterial organism, defer to primary team for management S/p Hypotension, currently started on LR, defer to primary team for further management Query sexually transmitted disease in the setting of misadventure, gonorrhea and chlamydia screening negative, RPR negative Plan: Patient looks stable Continue current treatment Antibiotic/Pain meds per primary service Substance Abuse and Psychiatric consult Wound Care per primary Encourage to ambulate TID-QID as tolerated Additional orders as above Continue PT/OT His CIWA score remains low. At this point, we are signing off his case. Please feel free to re-consult us for further questions or concerns. On behalf of the hospitalist team, thank you for the opportunity to participate in the management of this patient.
[2017-02-14] MEDS ORDERED: Zolpidem 5 MG Tab PO PRN (08:45)
--- NOTE | 2017-02-14 08:49 | PCM.SURGPN ---
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) - Patient Data Vitals - most recent: Last Vital Signs Temp 36.8 C 02/14/17 04:00 Pulse 66 02/14/17 04:00 Resp 12 02/14/17 04:00 BP 107/80 02/14/17 04:00 Pulse Ox 92 L 02/14/17 04:00 Weight - most recent: 66.905 kg I&O - last 24 hours: Intake & Output 02/13/17 02/14/17 02/14/17 22:59 06:59 14:59 Intake Total 3889 955 Output Total 450 625 Balance 3439 330 Lab Results last 24 hrs: Laboratory Results - last 24 hr 02/12/17 Range/Units 05:48 RPR Non-reac (Non-Reac) Med Orders - Current: Current Medications Acetaminophen (Tylenol) 650 mg PO Q4H PRN PRN Reason: pain/fever Last Admin: 02/13/17 20:07 Dose: 650 mg Chlordiazepoxide HCl (Librium) 25 mg PO TID [facility] Last Admin: 02/14/17 08:02 Dose: 25 mg Cyclobenzaprine HCl (Flexeril) 10 mg PO BID [facility] Last Admin: 02/14/17 08:02 Dose: 10 mg Famotidine (Pepcid) 20 mg IVPUSH BID [facility] Last Admin: 02/14/17 08:03 Dose: 20 mg Hydromorphone HCl (Dilaudid) 1 mg IVPUSH Q1H PRN PRN Reason: pain Last Admin: 02/14/17 01:23 Dose: 1 mg Cefoxitin Sodium 2 gm/ Premix 50 mls @ 100 mls/hr IV Q8HR [facility] Last Admin: 02/14/17 05:07 Dose: 100 mls/hr Lactated Ringer's (Ringers, Lactated) 1,000 mls @ 100 mls/hr IV ASDIRECTED [facility] Last Admin: 02/14/17 01:54 Dose: 100 mls/hr Ketorolac Tromethamine (Toradol) 30 mg IVPUSH Q6H PRN PRN Reason: Pain Stop: 02/17/17 17:16 Last Admin: 02/14/17 08:02 Dose: 30 mg Lorazepam (Ativan) 1 - 2 mg PO Q4H PRN; Protocol PRN Reason: Withdrawal Symptoms Quetiapine Fumarate (Seroquel) 25 mg PO BEDTIME [facility] Last Admin: 02/13/17 20:58 Dose: 25 mg Discontinued Medications Chlordiazepoxide HCl (Librium) 25 mg PO BID [facility] Last Admin: 02/12/17 21:01 Dose: 25 mg Dexamethasone (Dexamethasone) Confirm Administered Dose 20 mg .ROUTE .STK-MED ONE Stop: 02/11/17 23:55 Diphtheria/Tetanus/Acell Pertussis (Adacel) 0.5 ml IM .ONCE ONE Stop: 02/13/17 13:01 Ephedrine Sulfate (Ephedrine Sulfate) 5 mg IVPUSH ASDIRECTED PRN PRN Reason: Hypotension Fentanyl (Sublimaze) Confirm Administered Dose 100 mcg .ROUTE .STK-MED ONE Stop: 02/11/17 22:33 Fentanyl (Sublimaze) Confirm Administered Dose 100 mcg .ROUTE .STK-MED ONE Stop: 02/11/17 23:05 Fentanyl (Sublimaze) 50 mcg IVPUSH Q5M PRN PRN Reason: Pain Stop: 02/11/17 23:27 Last Admin: 02/12/17 02:45 Dose: 50 mcg Fentanyl (Sublimaze) Confirm Administered Dose 250 mcg .ROUTE .STK-MED ONE Stop: 02/11/17 23:56 Fentanyl (Sublimaze) Confirm Administered Dose 100 mcg .ROUTE .STK-MED ONE Stop: 02/12/17 01:58 Last Admin: 02/12/17 11:38 Dose: Not Given Fentanyl (Sublimaze) 50 mcg IVPUSH Q5M PRN PRN Reason: Pain Stop: 02/12/17 02:22 Glycopyrrolate () Confirm Administered Dose 1 mg .ROUTE .STK-MED ONE Stop: 02/12/17 00:51 Hydromorphone HCl (Dilaudid) 0.5 mg IVPUSH ONETIME ONE Stop: 02/11/17 21:16 Last Admin: 02/11/17 21:20 Dose: 0.5 mg Hydromorphone HCl (Dilaudid) Confirm Administered Dose 0.5 mg .ROUTE .STK-MED ONE Stop: 02/11/17 21:20 Last Admin: 02/11/17 21:22 Dose: Not Given Hydromorphone HCl (Dilaudid) 0.5 mg IVPUSH Q15M PRN PRN Reason: severe pain Stop: 02/11/17 23:27 Hydromorphone HCl (Dilaudid) Confirm Administered Dose 1 mg .ROUTE .STK-MED ONE Stop: 02/11/17 23:56 Hydromorphone HCl (Dilaudid) Confirm Administered Dose 1 mg .ROUTE .STK-MED ONE Stop: 02/12/17 00:39 Hydromorphone HCl (Dilaudid) 0.5 mg IVPUSH Q1H PRN PRN Reason: Pain (severe 7-10) Last Admin: 02/12/17 16:44 Dose: 0.5 mg Hydromorphone HCl (Dilaudid) 0.5 mg IVPUSH Q15M PRN PRN Reason: severe pain Stop: 02/12/17 02:22 Last Admin: 02/12/17 03:02 Dose: 0.5 mg Sodium Chloride (Normal Saline) 1,000 mls @ 999 mls/hr IV ONETIME ONE Stop: 02/11/17 22:15 Last Admin: 02/11/17 21:19 Dose: 999 mls/hr Sodium Chloride (Normal Saline) Confirm Administered Dose 1,000 mls @ as directed .ROUTE .ST-MED ONE Stop: 02/11/17 21:21 Last Admin: 02/11/17 21:21 Dose: Not Given Lidocaine HCl (Xylocaine-Mpf 1%) Confirm Administered Dose 4 mls @ as directed .ROUTE .STK-MED ONE Stop: 02/11/17 22:33 Cefoxitin Sodium (Mefoxin In Dextrose,Iso-Osm 2 Gm/50 Ml) Confirm Administered Dose 50 mls @ as directed .ROUTE .STK-MED ONE Stop: 02/11/17 23:14 Phenylephrine HCl 1 mg/ Sodium (Chloride) 10.1 mls @ 1 mls/sec IV TITRATE [facility] Lidocaine HCl (Xylocaine-Mpf 1%) Confirm Administered Dose 4 mls @ as directed .ROUTE .STK-MED ONE Stop: 02/11/17 23:55 Lactated Ringer's (Ringers, Lactated) Confirm Administered Dose 3,000 mls @ as directed .ROUTE .[facility] ONE Stop: 02/11/17 23:55 Lactated Ringer's (Ringers, Lactated) Confirm Administered Dose 1,000 mls @ as directed .ROUTE .[facility] ONE Stop: 02/12/17 00:46 Sodium Chloride (Normal Saline) 1,000 mls @ 125 mls/hr IV ASDIRECTED [facility] Last Admin: 02/12/17 10:17 Dose: 125 mls/hr Cefoxitin Sodium 2 gm/ Sodium (Chloride) 100 mls @ 200 mls/hr IV Q6H [facility] Last Admin: 02/12/17 11:40 Dose: Not Given Magnesium Sulfate 2 gm/ Premix 50 mls @ 25 mls/hr IV ONETIME ONE Stop: 02/12/17 15:55 Last Admin: 02/12/17 14:21 Dose: 25 mls/hr Midazolam HCl (Versed 1 Mg/Ml) Confirm Administered Dose 2 mg .ROUTE .[facility] ONE Stop: 02/11/17 22:33 Midazolam HCl (Versed 1 Mg/Ml) 2 mg IVPUSH ONETIME PRN PRN Reason: Sedation Midazolam HCl (Versed 1 Mg/Ml) 2 mg IVPUSH ONETIME PRN PRN Reason: Sedation Neostigmine Methylsulfate (Neostigmine) Confirm Administered Dose 5 mg .ROUTE .[facility] ONE Stop: 02/12/17 00:51 Ondansetron HCl (Zofran) 4 mg IVPUSH ONETIME PRN PRN Reason: Nausea/Vomiting Ondansetron HCl (Zofran) Confirm Administered Dose 4 mg .ROUTE .[facility] ONE Stop: 02/11/17 23:55 Ondansetron HCl (Zofran) 4 mg IVPUSH Q6H PRN PRN Reason: Nausea/Vomiting Ondansetron HCl (Zofran) 4 mg IVPUSH ONETIME PRN PRN Reason: Nausea/Vomiting Pneumococcal Polyvalent Vaccine (Pneumovax 23) 0.5 ml IM .ONCE ONE Stop: 02/12/17 08:15 Propofol (Diprivan 20 Ml) Confirm Administered Dose 200 mg .ROUTE .STK-MED ONE Stop: 02/11/17 22:33 Propofol (Diprivan 20 Ml) Confirm Administered Dose 200 mg .ROUTE .STK-MED ONE Stop: 02/11/17 23:56 Rocuronium [place] (Zemuron) Confirm Administered Dose 50 mg .ROUTE .STK-MED ONE Stop: 02/11/17 23:55 Rocuronium [place] (Zemuron) Confirm Administered Dose 50 mg .ROUTE .STK-MED ONE Stop: 02/12/17 01:03 - Exam Wound/Incisions: dressing dry and intact Abdomen: no distension, other ([place] stoma) - Problem List & Annotations (1) Rectal foreign body SNOMED Code(s): 39388071 Code(s): T18.5XXA - FOREIGN BODY IN ANUS AND RECTUM, INITIAL ENCOUNTER Status: Acute Priority: High Current Visit: Yes Qualifiers: Encounter type: initial encounter Qualified Code(s): T18.5XXA - Foreign body in anus and rectum, initial encounter - Problem List Review Problem List Initiated/Reviewed/Updated: Yes - My Orders Last 24 Hours: Active Orders 24 hr Category Date Time Status Admission Status [Patient Status] [ADT] Routine ADT 02/13/17 21:16 Active Vaccines to be Administered [RC] .DISCHARGE Care 02/13/17 10:57 Active Consult to Occupational Therapy [OT Evaluation and Cons 02/13/17 11:54 Active Treatment] [CONS] Routine Consult to Physical Therapy [PT Evaluation and Cons 02/13/17 11:54 Active Treatment] [CONS] Routine Full Liquid Diet [DIET] Diet 02/13/17 Lunch Active Acetaminophen [Tylenol] Med 02/13/17 19:55 Active 650 mg PO Q4H PRN Lactated Ringers [Ringers, Lactated] 1,000 ml Med 02/13/17 08:45 Active IV ASDIRECTED Zolpidem [Ambien] Med 02/14/17 08:45 Ordered 5 mg PO BEDTIME PRN chlordiazePOXIDE [Librium] Med 02/13/17 09:00 Active 25 mg PO TID Medication Orders Acetaminophen (Tylenol) 650 mg PO Q4H PRN PRN Reason: pain/fever Last Admin: 02/13/17 20:07 Dose: 650 mg Chlordiazepoxide HCl (Librium) 25 mg PO TID [facility] Last Admin: 02/14/17 08:02 Dose: 25 mg Admin: 02/13/17 20:58 Dose: 25 mg Admin: 02/13/17 15:59 Dose: 25 mg Admin: 02/13/17 09:02 Dose: 25 mg Cyclobenzaprine HCl (Flexeril) 10 mg PO BID [facility] Last Admin: 02/14/17 08:02 Dose: 10 mg Admin: 02/13/17 20:58 Dose: 10 mg Admin: 02/13/17 08:36 Dose: Admin: 02/12/17 21:01 Dose: 10 mg Famotidine (Pepcid) 20 mg IVPUSH BID [facility] Last Admin: 02/14/17 08:03 Dose: 20 mg Admin: 02/13/17 20:58 Dose: 20 mg Admin: 02/13/17 09:01 Dose: 20 mg Admin: 02/12/17 21:01 Dose: 20 mg Admin: 02/12/17 09:42 Dose: 20 mg Hydromorphone HCl (Dilaudid) 1 mg IVPUSH Q1H PRN PRN Reason: pain Last Admin: 02/14/17 01:23 Dose: 1 mg Admin: 02/13/17 18:29 Dose: 1 mg Admin: 02/13/17 12:15 Dose: 1 mg Admin: 02/13/17 09:22 Dose: 1 mg Admin: 02/13/17 02:14 Dose: 1 mg Admin: 02/12/17 17:50 Dose: 1 mg Cefoxitin Sodium 2 gm/ Premix 50 mls @ 100 mls/hr IV Q8HR [facility] Last Admin: 02/14/17 05:07 Dose: 100 mls/hr Infusion: 02/13/17 21:28 Dose: 100 mls/hr Admin: 02/13/17 20:58 Dose: 100 mls/hr Infusion: 02/13/17 15:48 Dose: 100 mls/hr Admin: 02/13/17 15:18 Dose: 100 mls/hr Infusion: 02/13/17 06:09 Dose: 100 mls/hr Admin: 02/13/17 05:39 Dose: 100 mls/hr Infusion: 02/12/17 21:31 Dose: 100 mls/hr Admin: 02/12/17 21:01 Dose: 100 mls/hr Infusion: 02/12/17 14:51 Dose: 100 mls/hr Admin: 02/12/17 14:21 Dose: 100 mls/hr Infusion: 02/12/17 06:30 Dose: 100 mls/hr Admin: 02/12/17 06:00 Dose: 100 mls/hr Lactated Ringer's (Ringers, Lactated) 1,000 mls @ 100 mls/hr IV ASDIRECTED [facility] Last Admin: 02/14/17 01:54 Dose: 100 mls/hr Infusion: 02/14/17 01:54 Dose: 100 mls/hr Admin: 02/13/17 15:57 Dose: 100 mls/hr Infusion: 02/13/17 15:57 Dose: 100 mls/hr Admin: 02/13/17 09:03 Dose: 100 mls/hr Ketorolac Tromethamine (Toradol) 30 mg IVPUSH Q6H PRN PRN Reason: Pain Stop: 02/17/17 17:16 Last Admin: 02/14/17 08:02 Dose: 30 mg Admin: 02/14/17 01:22 Dose: 30 mg Admin: 02/13/17 15:01 Dose: 30 mg Admin: 02/13/17 09:01 Dose: 30 mg Admin: 02/13/17 02:13 Dose: 30 mg Admin: 02/12/17 17:51 Dose: 30 mg Lorazepam (Ativan) 1 - 2 mg PO Q4H PRN; Protocol PRN Reason: Withdrawal Symptoms Quetiapine Fumarate (Seroquel) 25 mg PO BEDTIME [facility] Last Admin: 02/13/17 20:58 Dose: 25 mg Admin: 02/12/17 21:01 Dose: 25 mg - Assessment Assessment (Free Text/Narrative):: imp: Evolving peritoneal infection. Urinary retention requiring replacement of [place] catheter most likely secondary to lower abdominal discomfort. Normal temperature and normal white blood cell count. No symptoms or signs of EtOH withdrawal. Needs to ambulate more.
[2017-02-14] MEDS: QUEtiapine 25 MG Tab PO SCH (20:17)
[2017-02-15] MEDS: HYDROmorphone 1 MG/ML Syringe IVPUSH PRN ×2 (00:51→05:56)
[2017-02-15] MEDS: Ketorolac 30 MG/ML SDV IVPUSH PRN ×2 (02:57→13:59)
[2017-02-15] MEDS: Acetaminophen 325 MG Tab PO PRN (05:17)
[2017-02-15] MEDS: cefOXitin 2 GM in Premix Bag 1 BAG IV SCH (05:20)
[2017-02-15] MEDS ORDERED: HYDROmorphone 1 MG/ML Syringe IVPUSH PRN (07:10)
--- NOTE | 2017-02-15 07:13 | PCM.SURGPN ---
- General Info Functional Status: Reports: pain controlled, tolerating diet - Review of Systems Gastrointestinal: Reports: Abdominal pain (Incisional) - Patient Data Vitals - most recent: Last Vital Signs Temp 37.7 C 02/15/17 05:17 Pulse 86 02/15/17 03:00 Resp 16 02/15/17 03:00 BP 122/75 02/15/17 03:00 Pulse Ox 92 L 02/15/17 03:00 Weight - most recent: 65.091 kg I&O - last 24 hours: Intake & Output 02/14/17 02/15/17 02/15/17 22:59 06:59 14:59 Intake Total 1660 840 Output Total 1925 1200 Balance -265 -360 Med Orders - Current: Current Medications Acetaminophen (Tylenol) 650 mg PO Q4H PRN PRN Reason: pain/fever Last Admin: 02/15/17 05:17 Dose: 650 mg Chlordiazepoxide HCl (Librium) 25 mg PO TID [facility] Last Admin: 02/14/17 22:04 Dose: Not Given Cyclobenzaprine HCl (Flexeril) 10 mg PO BID [facility] Last Admin: 02/14/17 20:16 Dose: 10 mg Famotidine (Pepcid) 20 mg IVPUSH BID [facility] Last Admin: 02/14/17 20:18 Dose: 20 mg Hydromorphone HCl (Dilaudid) 0.5 mg IVPUSH Q1H PRN PRN Reason: pain Lactated Ringer's (Ringers, Lactated) 1,000 mls @ 100 mls/hr IV ASDIRECTED [facility] Last Admin: 02/14/17 22:55 Dose: 100 mls/hr Piperacillin Sod/Tazobactam (Sod 3.375 gm/ Sodium Chloride) 100 mls @ 25 mls/ hr IV Q6H [facility] Ketorolac Tromethamine (Toradol) 30 mg IVPUSH Q6H PRN PRN Reason: Pain Stop: 02/17/17 17:16 Last Admin: 02/15/17 02:57 Dose: 30 mg Lorazepam (Ativan) 1 - 2 mg PO Q4H PRN; Protocol PRN Reason: Withdrawal Symptoms Quetiapine Fumarate (Seroquel) 25 mg PO BEDTIME [facility] Last Admin: 02/14/17 20:17 Dose: 25 mg Zolpidem Tartrate (Ambien) 5 mg PO BEDTIME PRN PRN Reason: Insomnia Discontinued Medications Chlordiazepoxide HCl (Librium) 25 mg PO BID [facility] Last Admin: 02/12/17 21:01 Dose: 25 mg Dexamethasone (Dexamethasone) Confirm Administered Dose 20 mg .ROUTE .STK-MED ONE Stop: 02/11/17 23:55 Diphtheria/Tetanus/Acell Pertussis (Adacel) 0.5 ml IM .ONCE ONE Stop: 02/13/17 13:01 Ephedrine Sulfate (Ephedrine Sulfate) 5 mg IVPUSH ASDIRECTED PRN PRN Reason: Hypotension Fentanyl (Sublimaze) Confirm Administered Dose 100 mcg .ROUTE .STK-MED ONE Stop: 02/11/17 22:33 Fentanyl (Sublimaze) Confirm Administered Dose 100 mcg .ROUTE .STK-MED ONE Stop: 02/11/17 23:05 Fentanyl (Sublimaze) 50 mcg IVPUSH Q5M PRN PRN Reason: Pain Stop: 02/11/17 23:27 Last Admin: 02/12/17 02:45 Dose: 50 mcg Fentanyl (Sublimaze) Confirm Administered Dose 250 mcg .ROUTE .STK-MED ONE Stop: 02/11/17 23:56 Fentanyl (Sublimaze) Confirm Administered Dose 100 mcg .ROUTE .STK-MED ONE Stop: 02/12/17 01:58 Last Admin: 02/12/17 11:38 Dose: Not Given Fentanyl (Sublimaze) 50 mcg IVPUSH Q5M PRN PRN Reason: Pain Stop: 02/12/17 02:22 Glycopyrrolate () Confirm Administered Dose 1 mg .ROUTE .STK-MED ONE Stop: 02/12/17 00:51 Hydromorphone HCl (Dilaudid) 0.5 mg IVPUSH ONETIME ONE Stop: 02/11/17 21:16 Last Admin: 02/11/17 21:20 Dose: 0.5 mg Hydromorphone HCl (Dilaudid) Confirm Administered Dose 0.5 mg .ROUTE .STK-MED ONE Stop: 02/11/17 21:20 Last Admin: 02/11/17 21:22 Dose: Not Given Hydromorphone HCl (Dilaudid) 0.5 mg IVPUSH Q15M PRN PRN Reason: severe pain Stop: 02/11/17 23:27 Hydromorphone HCl (Dilaudid) Confirm Administered Dose 1 mg .ROUTE .STK-MED ONE Stop: 02/11/17 23:56 Hydromorphone HCl (Dilaudid) Confirm Administered Dose 1 mg .ROUTE .STK-MED ONE Stop: 02/12/17 00:39 Hydromorphone HCl (Dilaudid) 0.5 mg IVPUSH Q1H PRN PRN Reason: Pain (severe 7-10) Last Admin: 02/12/17 16:44 Dose: 0.5 mg Hydromorphone HCl (Dilaudid) 0.5 mg IVPUSH Q15M PRN PRN Reason: severe pain Stop: 02/12/17 02:22 Last Admin: 02/12/17 03:02 Dose: 0.5 mg Hydromorphone HCl (Dilaudid) 1 mg IVPUSH Q1H PRN PRN Reason: pain Last Admin: 02/15/17 05:56 Dose: 1 mg Sodium Chloride (Normal Saline) 1,000 mls @ 999 mls/hr IV ONETIME ONE Stop: 02/11/17 22:15 Last Admin: 02/11/17 21:19 Dose: 999 mls/hr Sodium Chloride (Normal Saline) Confirm Administered Dose 1,000 mls @ as directed .ROUTE .STK-MED ONE Stop: 02/11/17 21:21 Last Admin: 02/11/17 21:21 Dose: Not Given Lidocaine HCl (Xylocaine-Mpf 1%) Confirm Administered Dose 4 mls @ as directed .ROUTE .STK-MED ONE Stop: 02/11/17 22:33 Cefoxitin Sodium (Mefoxin In Dextrose,Iso-Osm 2 Gm/50 Ml) Confirm Administered Dose 50 mls @ as directed .ROUTE .STK-MED ONE Stop: 02/11/17 23:14 Phenylephrine HCl 1 mg/ Sodium (Chloride) 10.1 mls @ 1 mls/sec IV TITRATE [facility] Lidocaine HCl (Xylocaine-Mpf 1%) Confirm Administered Dose 4 mls @ as directed .ROUTE .STK-MED ONE Stop: 02/11/17 23:55 Lactated Ringer's (Ringers, Lactated) Confirm Administered Dose 3,000 mls @ as directed .ROUTE .STK-MED ONE Stop: 02/11/17 23:55 Lactated Ringer's (Ringers, Lactated) Confirm Administered Dose 1,000 mls @ as directed .ROUTE .ST-MED ONE Stop: 02/12/17 00:46 Sodium Chloride (Normal Saline) 1,000 mls @ 125 mls/hr IV ASDIRECTED [facility] Last Admin: 02/12/17 10:17 Dose: 125 mls/hr Cefoxitin Sodium 2 gm/ Sodium (Chloride) 100 mls @ 200 mls/hr IV Q6H [facility] Last Admin: 02/12/17 11:40 Dose: Not Given Cefoxitin Sodium 2 gm/ Premix 50 mls @ 100 mls/hr IV Q8HR [facility] Last Admin: 02/15/17 05:20 Dose: 100 mls/hr Magnesium Sulfate 2 gm/ Premix 50 mls @ 25 mls/hr IV ONETIME ONE Stop: 02/12/17 15:55 Last Admin: 02/12/17 14:21 Dose: 25 mls/hr Midazolam HCl (Versed 1 Mg/Ml) Confirm Administered Dose 2 mg .ROUTE .ST-MED ONE Stop: 02/11/17 22:33 Midazolam HCl (Versed 1 Mg/Ml) 2 mg IVPUSH ONETIME PRN PRN Reason: Sedation Midazolam HCl (Versed 1 Mg/Ml) 2 mg IVPUSH ONETIME PRN PRN Reason: Sedation Neostigmine Methylsulfate (Neostigmine) Confirm Administered Dose 5 mg .ROUTE .ST-MED ONE Stop: 02/12/17 00:51 Ondansetron HCl (Zofran) 4 mg IVPUSH ONETIME PRN PRN Reason: Nausea/Vomiting Ondansetron HCl (Zofran) Confirm Administered Dose 4 mg .ROUTE .STK-MED ONE Stop: 02/11/17 23:55 Ondansetron HCl (Zofran) 4 mg IVPUSH Q6H PRN PRN Reason: Nausea/Vomiting Ondansetron HCl (Zofran) 4 mg IVPUSH ONETIME PRN PRN Reason: Nausea/Vomiting Pneumococcal Polyvalent Vaccine (Pneumovax 23) 0.5 ml IM .ONCE ONE Stop: 02/12/17 08:15 Propofol (Diprivan 20 Ml) Confirm Administered Dose 200 mg .ROUTE .STK-MED ONE Stop: 02/11/17 22:33 Propofol (Diprivan 20 Ml) Confirm Administered Dose 200 mg .ROUTE .STK-MED ONE Stop: 02/11/17 23:56 Rocuronium [place] (Zemuron) Confirm Administered Dose 50 mg .ROUTE .STK-MED ONE Stop: 02/11/17 23:55 Rocuronium [place] (Zemuron) Confirm Administered Dose 50 mg .ROUTE .STK-MED ONE Stop: 02/12/17 01:03 - Exam Wound/Incisions: dressing dry and intact Abdomen: soft, other ([place] stoma) - Problem List & Annotations (1) Rectal foreign body SNOMED Code(s): 26855386 Code(s): T18.5XXA - FOREIGN BODY IN ANUS AND RECTUM, INITIAL ENCOUNTER Status: Acute Priority: High Current Visit: Yes Qualifiers: Encounter type: initial encounter Qualified Code(s): T18.5XXA - Foreign body in anus and rectum, initial encounter - Problem List Review Problem List Initiated/Reviewed/Updated: Yes - My Orders Last 24 Hours: Active Orders 24 hr Category Date Time Status DC [place] Catheter [Urinary Catheter Removal] [RC] Per Care 02/15/17 07:08 Ordered Unit Routine Regular Diet [DIET] Diet 02/15/17 Lunch Ordered CBC WITH AUTO DIFF [HEME] Routine Lab 02/16/17 07:11 Ordered HYDROmorphone [Dilaudid] Med 02/15/17 07:10 Ordered 0.5 mg IVPUSH Q1H PRN Piperacillin/Tazobactam [Zosyn] 3.375 gm Med 02/15/17 07:15 Ordered Sodium Chloride 0.9% [Normal Saline] 100 ml IV Q6H Zolpidem [Ambien] Med 02/14/17 08:45 Active 5 mg PO BEDTIME PRN Peripheral IV Discontinue [OM.PC] Routine Oth 02/15/17 07:08 Ordered Medication Orders Acetaminophen (Tylenol) 650 mg PO Q4H PRN PRN Reason: pain/fever Last Admin: 02/15/17 05:17 Dose: 650 mg Admin: 02/13/17 20:07 Dose: 650 mg Chlordiazepoxide HCl (Librium) 25 mg PO TID [facility] Last Admin: 02/14/17 22:04 Dose: Not Given Admin: 02/14/17 14:58 Dose: Admin: 02/14/17 08:02 Dose: 25 mg Admin: 02/13/17 20:58 Dose: 25 mg Admin: 02/13/17 15:59 Dose: 25 mg Admin: 02/13/17 09:02 Dose: 25 mg Cyclobenzaprine HCl (Flexeril) 10 mg PO BID [facility] Last Admin: 02/14/17 20:16 Dose: 10 mg Admin: 02/14/17 08:02 Dose: 10 mg Admin: 02/13/17 20:58 Dose: 10 mg Admin: 02/13/17 08:36 Dose: Admin: 02/12/17 21:01 Dose: 10 mg Famotidine (Pepcid) 20 mg IVPUSH BID [facility] Last Admin: 02/14/17 20:18 Dose: 20 mg Admin: 02/14/17 08:03 Dose: 20 mg Admin: 02/13/17 20:58 Dose: 20 mg Admin: 02/13/17 09:01 Dose: 20 mg Admin: 02/12/17 21:01 Dose: 20 mg Admin: 02/12/17 09:42 Dose: 20 mg Hydromorphone HCl (Dilaudid) 0.5 mg IVPUSH Q1H PRN PRN Reason: pain Lactated Ringer's (Ringers, Lactated) 1,000 mls @ 100 mls/hr IV ASDIRECTED [facility] Last Admin: 02/14/17 22:55 Dose: 100 mls/hr Infusion: 02/14/17 22:09 Dose: 100 mls/hr Admin: 02/14/17 12:09 Dose: 100 mls/hr Infusion: 02/14/17 11:54 Dose: 100 mls/hr Admin: 02/14/17 01:54 Dose: 100 mls/hr Infusion: 02/14/17 01:54 Dose: 100 mls/hr Admin: 02/13/17 15:57 Dose: 100 mls/hr Infusion: 02/13/17 15:57 Dose: 100 mls/hr Admin: 02/13/17 09:03 Dose: 100 mls/hr Piperacillin Sod/Tazobactam (Sod 3.375 gm/ Sodium Chloride) 100 mls @ 25 mls/ hr IV Q6H [facility] Ketorolac Tromethamine (Toradol) 30 mg IVPUSH Q6H PRN PRN Reason: Pain Stop: 02/17/17 17:16 Last Admin: 02/15/17 02:57 Dose: 30 mg Admin: 02/14/17 16:31 Dose: 30 mg Admin: 02/14/17 08:02 Dose: 30 mg Admin: 02/14/17 01:22 Dose: 30 mg Admin: 02/13/17 15:01 Dose: 30 mg Admin: 02/13/17 09:01 Dose: 30 mg Admin: 02/13/17 02:13 Dose: 30 mg Admin: 02/12/17 17:51 Dose: 30 mg Lorazepam (Ativan) 1 - 2 mg PO Q4H PRN; Protocol PRN Reason: Withdrawal Symptoms Quetiapine Fumarate (Seroquel) 25 mg PO BEDTIME [facility] Last Admin: 02/14/17 20:17 Dose: 25 mg Admin: 02/13/17 20:58 Dose: 25 mg Admin: 02/12/17 21:01 Dose: 25 mg Zolpidem Tartrate (Ambien) 5 mg PO BEDTIME PRN PRN Reason: Insomnia - Assessment Assessment (Free Text/Narrative):: imp: Evolving peritonitis. This patient presented with a serious potentially life threatening infection cause of the rectal injury. I am going to change his antibiotics from cefoxitin to Zosyn because of this. plan: See orders.
[2017-02-15] MEDS ORDERED: Piperacillin/Tazobactam 3.375 GM in Sodium Chloride 0.9% 100 ML IV SCH (07:15)
[2017-02-15] MEDS ORDERED: Piperacillin/Tazobactam 4.5 GM in Sodium Chloride 0.9% 100 ML IV ONE (07:30)
[2017-02-15] MEDS: Famotidine 20 MG/2 ML SDV IVPUSH SCH ×2 (07:59→20:12)
[2017-02-15] MEDS: Acetaminophen/oxyCODONE 325-5 MG Tab PO PRN ×3 (07:59→23:50)
[2017-02-15] MEDS: Cyclobenzaprine 10 MG Tab PO SCH ×2 (08:01→20:12)
[2017-02-15] MEDS: chlordiazePOXIDE 25 MG Cap PO SCH (08:01)
--- NOTE | 2017-02-15 15:18 | CR ---
Abdomen: Lateral and supine views of the abdomen were obtained. Lateral view shows an opacity (tubing connector) projecting with the anterior abdominal wall. Please correlate if this represents the questioned foreign body. No other abnormal radiopacity is seen. Bowel gas pattern is normal. Bony structures are unremarkable for the patient's age. Vascular calcification is seen. Impression: 1. Tubing connector within the anterior abdominal wall. Please correlate if this represents the patient's foreign body. 2. Other incidental findings. Diagnostic code #2
--- NOTE | 2017-02-15 15:19 | CR ---
Chest: 2 views of the chest were obtained. Comparison: No previous chest x-ray. Minimal portion of the lateral left costophrenic angle not included on this study. Lungs otherwise are clear. Heart size is normal. Upper mediastinum is within normal limits. Bony structures appear within normal limits for the patient's age. Impression: 1. Nothing acute is identified on 2 view chest x-ray. Diagnostic code #1
[2017-02-15] MEDS: Piperacillin/Tazobactam 4.5 GM in Sodium Chloride 0.9% 100 ML IV SCH ×2 (15:23→23:41)
[2017-02-15] MEDS: QUEtiapine 25 MG Tab PO SCH (20:12)
[2017-02-16] MEDS: Piperacillin/Tazobactam 4.5 GM in Sodium Chloride 0.9% 100 ML IV SCH ×3 (06:45→22:41)
[2017-02-16] MEDS: Famotidine 20 MG/2 ML SDV IVPUSH SCH ×2 (08:47→21:56)
[2017-02-16] MEDS: Cyclobenzaprine 10 MG Tab PO SCH ×2 (08:47→21:56)
[2017-02-16] MEDS: Acetaminophen/oxyCODONE 325-5 MG Tab PO PRN ×2 (09:23→22:41)
--- NOTE | 2017-02-16 10:12 | PCM.SURGPN ---
- General Info Date of Service: 02/16/17 POD#: 5 Functional Status: Reports: pain controlled, tolerating diet, ambulating, urinating - Review of Systems Gastrointestinal: Reports: Abdominal pain (His incisional discomfort is much less.) - Patient Data Vitals - most recent: Last Vital Signs Temp 37.2 C 02/16/17 07:49 Pulse 61 02/16/17 07:49 Resp 12 02/16/17 07:49 BP 121/71 02/16/17 07:49 Pulse Ox 93 L 02/16/17 07:49 Weight - most recent: 65.091 kg I&O - last 24 hours: Intake & Output 02/15/17 02/16/17 02/16/17 22:59 06:59 14:59 Intake Total 640 1000 Output Total 275 200 Balance 365 800 Lab Results last 24 hrs: Laboratory Results - last 24 hr 02/12/17 02/16/17 Range/Units 12:07 05:40 WBC 8.37 (4.23-9.07) K/mm3 RBC 3.88 L (4.63-6.08) M/mm3 Hgb 11.8 L (13.7-17.5) gm/L Hct 34.8 L (40.1-51.0) % MCV 89.7 (79.0-92.2) fl MCH 30.4 (25.7-32.2) pg MCHC 33.9 (32.2-35.5) g/dl RDW Std Deviation 39.2 (35.1-43.9) fL Plt Count 288 (163-337) K/mm3 MPV 9.3 L (9.4-12.3) fl Neut % (Auto) 73.6 H (34.0-67.9) % Lymph % (Auto) 11.7 L (21.8-53.1) % [place] % (Auto) 9.8 (5.3-12.2) % Eos % (Auto) 4.3 (0.8-7.0) Baso % (Auto) 0.2 (0.1-1.2) % Neut # (Auto) 6.16 H (1.78-5.38) K/mm3 Lymph # (Auto) 0.98 L (1.32-3.57) K/mm3 [place] # (Auto) 0.82 (0.30-0.82) K/mm3 Eos # (Auto) 0.36 (0.04-0.54) K/mm3 Baso # (Auto) 0.02 (0.01-0.08) K/mm3 Hepatitis A IgM Ab Non reactive (NR) Hep Bs Antigen Non reactive (NR) Hep B Core IgM Ab Non reactive (NR) Hepatitis C Antibody Non reactive (NR) Hepatitis Interpret See below Med Orders - Current: Current Medications Acetaminophen (Tylenol) 650 mg PO Q4H PRN PRN Reason: pain/fever Last Admin: 02/15/17 05:17 Dose: 650 mg Cyclobenzaprine HCl (Flexeril) 10 mg PO BID [facility] [place] Last Admin: 02/16/17 08:47 Dose: 10 mg Famotidine (Pepcid) 20 mg IVPUSH BID [facility] [place] Last Admin: 02/16/17 08:47 Dose: 20 mg Hydromorphone HCl (Dilaudid) 0.5 mg IVPUSH Q1H PRN PRN Reason: pain Piperacillin Sod/Tazobactam (Sod 4.5 gm/ Sodium Chloride) 100 mls @ 25 mls/hr IV Q8H [facility] [place] Last Admin: 02/16/17 06:45 Dose: 25 mls/hr Ketorolac Tromethamine (Toradol) 30 mg IVPUSH Q6H PRN PRN Reason: Pain Stop: 02/17/17 17:16 Last Admin: 02/15/17 13:59 Dose: 30 mg Lorazepam (Ativan) 1 - 2 mg PO Q4H PRN; Protocol PRN Reason: Withdrawal Symptoms Oxycodone/Acetaminophen (Percocet 325-5 Mg) 1 tab PO Q4H PRN PRN Reason: Pain Last Admin: 02/16/17 09:23 Dose: 1 tab Quetiapine Fumarate (Seroquel) 25 mg PO BEDTIME [facility] [place] Last Admin: 02/15/17 20:12 Dose: 25 mg Zolpidem Tartrate (Ambien) 5 mg PO BEDTIME PRN PRN Reason: Insomnia Discontinued Medications Chlordiazepoxide HCl (Librium) 25 mg PO BID [facility] [place] Last Admin: 02/12/17 21:01 Dose: 25 mg Chlordiazepoxide HCl (Librium) 25 mg PO TID [facility] [place] Last Admin: 02/15/17 08:01 Dose: Not Given Dexamethasone (Dexamethasone) Confirm Administered Dose 20 mg .ROUTE .STK-MED ONE Stop: 02/11/17 23:55 Diphtheria/Tetanus/Acell Pertussis (Adacel) 0.5 ml IM .ONCE ONE Stop: 02/13/17 13:01 Ephedrine Sulfate (Ephedrine Sulfate) 5 mg IVPUSH ASDIRECTED PRN PRN Reason: Hypotension Fentanyl (Sublimaze) Confirm Administered Dose 100 mcg .ROUTE .STK-MED ONE Stop: 02/11/17 22:33 Fentanyl (Sublimaze) Confirm Administered Dose 100 mcg .ROUTE .STK-MED ONE Stop: 02/11/17 23:05 Fentanyl (Sublimaze) 50 mcg IVPUSH Q5M PRN PRN Reason: Pain Stop: 02/11/17 23:27 Last Admin: 02/12/17 02:45 Dose: 50 mcg Fentanyl (Sublimaze) Confirm Administered Dose 250 mcg .ROUTE .STK-MED ONE Stop: 02/11/17 23:56 Fentanyl (Sublimaze) Confirm Administered Dose 100 mcg .ROUTE .STK-MED ONE Stop: 02/12/17 01:58 Last Admin: 02/12/17 11:38 Dose: Not Given Fentanyl (Sublimaze) 50 mcg IVPUSH Q5M PRN PRN Reason: Pain Stop: 02/12/17 02:22 Glycopyrrolate () Confirm Administered Dose 1 mg .ROUTE .STK-MED ONE Stop: 02/12/17 00:51 Hydromorphone HCl (Dilaudid) 0.5 mg IVPUSH ONETIME ONE Stop: 02/11/17 21:16 Last Admin: 02/11/17 21:20 Dose: 0.5 mg Hydromorphone HCl (Dilaudid) Confirm Administered Dose 0.5 mg .ROUTE .STK-MED ONE Stop: 02/11/17 21:20 Last Admin: 02/11/17 21:22 Dose: Not Given Hydromorphone HCl (Dilaudid) 0.5 mg IVPUSH Q15M PRN PRN Reason: severe pain Stop: 02/11/17 23:27 Hydromorphone HCl (Dilaudid) Confirm Administered Dose 1 mg .ROUTE .STK-MED ONE Stop: 02/11/17 23:56 Hydromorphone HCl (Dilaudid) Confirm Administered Dose 1 mg .ROUTE .STK-MED ONE Stop: 02/12/17 00:39 Hydromorphone HCl (Dilaudid) 0.5 mg IVPUSH Q1H PRN PRN Reason: Pain (severe 7-10) Last Admin: 02/12/17 16:44 Dose: 0.5 mg Hydromorphone HCl (Dilaudid) 0.5 mg IVPUSH Q15M PRN PRN Reason: severe pain Stop: 02/12/17 02:22 Last Admin: 02/12/17 03:02 Dose: 0.5 mg Hydromorphone HCl (Dilaudid) 1 mg IVPUSH Q1H PRN PRN Reason: pain Last Admin: 02/15/17 05:56 Dose: 1 mg Sodium Chloride (Normal Saline) 1,000 mls @ 999 mls/hr IV ONETIME ONE Stop: 02/11/17 22:15 Last Admin: 02/11/17 21:19 Dose: 999 mls/hr Sodium Chloride (Normal Saline) Confirm Administered Dose 1,000 mls @ as directed .ROUTE .STK-MED ONE Stop: 02/11/17 21:21 Last Admin: 02/11/17 21:21 Dose: Not Given Lidocaine HCl (Xylocaine-Mpf 1%) Confirm Administered Dose 4 mls @ as directed .ROUTE .STK-MED ONE Stop: 02/11/17 22:33 Cefoxitin Sodium (Mefoxin In Dextrose,Iso-Osm 2 Gm/50 Ml) Confirm Administered Dose 50 mls @ as directed .ROUTE .STK-MED ONE Stop: 02/11/17 23:14 Phenylephrine HCl 1 mg/ Sodium (Chloride) 10.1 mls @ 1 mls/sec IV TITRATE [facility] Lidocaine HCl (Xylocaine-Mpf 1%) Confirm Administered Dose 4 mls @ as directed .ROUTE .STK-MED ONE Stop: 02/11/17 23:55 Lactated Ringer's (Ringers, Lactated) Confirm Administered Dose 3,000 mls @ as directed .ROUTE .STK-MED ONE Stop: 02/11/17 23:55 Lactated Ringer's (Ringers, Lactated) Confirm Administered Dose 1,000 mls @ as directed .ROUTE .STK-MED ONE Stop: 02/12/17 00:46 Sodium Chloride (Normal Saline) 1,000 mls @ 125 mls/hr IV ASDIRECTED [facility] [place] Last Admin: 02/12/17 10:17 Dose: 125 mls/hr Cefoxitin Sodium 2 gm/ Sodium (Chloride) 100 mls @ 200 mls/hr IV Q6H [facility] [place] Last Admin: 02/12/17 11:40 Dose: Not Given Cefoxitin Sodium 2 gm/ Premix 50 mls @ 100 mls/hr IV Q8HR [facility] [place] Last Admin: 02/15/17 05:20 Dose: 100 mls/hr Magnesium Sulfate 2 gm/ Premix 50 mls @ 25 mls/hr IV ONETIME ONE Stop: 02/12/17 15:55 Last Admin: 02/12/17 14:21 Dose: 25 mls/hr Lactated Ringer's (Ringers, Lactated) 1,000 mls @ [facility] Admin: 02/14/17 22:55 Dose: 100 mls/hr Piperacillin Sod/Tazobactam (Sod 3.375 gm/ Sodium Chloride) 100 mls @ 25 mls/ hr IV Q6H [facility] [place] Last Admin: 02/15/17 07:47 Dose: Not Given Piperacillin Sod/Tazobactam (Sod 4.5 gm/ Sodium Chloride) 100 mls @ 200 mls/hr IV ONETIME ONE Stop: 02/15/17 07:59 Last Admin: 02/15/17 07:57 Dose: 200 mls/hr Midazolam HCl (Versed 1 Mg/Ml) Confirm Administered Dose 2 mg .ROUTE .STK-MED ONE Stop: 02/11/17 22:33 Midazolam HCl (Versed 1 Mg/Ml) 2 mg IVPUSH ONETIME PRN PRN Reason: Sedation Midazolam HCl (Versed 1 Mg/Ml) 2 mg IVPUSH ONETIME PRN PRN Reason: Sedation Neostigmine Methylsulfate (Neostigmine) Confirm Administered Dose 5 mg .ROUTE .STK-MED ONE Stop: 02/12/17 00:51 Ondansetron HCl (Zofran) 4 mg IVPUSH ONETIME PRN PRN Reason: Nausea/Vomiting Ondansetron HCl (Zofran) Confirm Administered Dose 4 mg .ROUTE .STK-MED ONE Stop: 07/12/17 23:55 Ondansetron HCl (Zofran) 4 mg IVPUSH Q6H PRN PRN Reason: Nausea/Vomiting Ondansetron HCl (Zofran) 4 mg IVPUSH ONETIME PRN PRN Reason: Nausea/Vomiting Pneumococcal Polyvalent Vaccine (Pneumovax 23) 0.5 ml IM .ONCE ONE Stop: 02/12/17 08:15 Propofol (Diprivan 20 Ml) Confirm Administered Dose 200 mg .ROUTE .STK-MED ONE Stop: 02/11/17 22:33 Propofol (Diprivan 20 Ml) Confirm Administered Dose 200 mg .ROUTE .STK-MED ONE Stop: 02/11/17 23:56 Rocuronium [place] (Zemuron) Confirm Administered Dose 50 mg .ROUTE .STK-MED ONE Stop: 02/11/17 23:55 Rocuronium [place] (Zemuron) Confirm Administered Dose 50 mg .ROUTE .STK-MED ONE Stop: 02/12/17 01:03 - Exam Wound/Incisions: dressing dry and intact Abdomen: soft, no tenderness, other (Ileostomy pink and functioning) - Problem List & Annotations (1) Rectal foreign body SNOMED Code(s): 57756924 Code(s): T18.5XXA - FOREIGN BODY IN ANUS AND RECTUM, INITIAL ENCOUNTER Status: Acute Priority: High Current Visit: Yes Qualifiers: Encounter type: initial encounter Qualified Code(s): T18.5XXA - Foreign body in anus and rectum, initial encounter - Problem List Review Problem List Initiated/Reviewed/Updated: Yes - My Orders Last 24 Hours: Active Orders 24 hr Category Date Time Status Regular Diet [DIET] Diet 02/15/17 Lunch Active Piperacillin/Tazobactam [Zosyn] 4.5 gm Med 02/15/17 15:30 Active Sodium Chloride 0.9% [Normal Saline] 100 ml IV Q8H Medication Orders Acetaminophen (Tylenol) 650 mg PO Q4H PRN PRN Reason: pain/fever Last Admin: 02/15/17 05:17 Dose: 650 mg Admin: 02/13/17 20:07 Dose: 650 mg Cyclobenzaprine HCl (Flexeril) 10 mg PO BID [facility] Last Admin: 02/16/17 08:47 Dose: 10 mg Admin: 02/15/17 20:12 Dose: 10 mg Admin: 02/15/17 08:01 Dose: 10 mg Admin: 02/14/17 20:16 Dose: 10 mg Admin: 02/14/17 08:02 Dose: 10 mg Admin: 02/13/17 20:58 Dose: 10 mg Admin: 02/13/17 08:36 Dose: Admin: 02/12/17 21:01 Dose: 10 mg Famotidine (Pepcid) 20 mg IVPUSH BID [facility] [place] Last Admin: 02/16/17 08:47 Dose: 20 mg Admin: 02/15/17 20:12 Dose: 20 mg Admin: 02/15/17 07:59 Dose: 20 mg Admin: 02/14/17 20:18 Dose: 20 mg Admin: 02/14/17 08:03 Dose: 20 mg Admin: 02/13/17 20:58 Dose: 20 mg Admin: 02/13/17 09:01 Dose: 20 mg Admin: 02/12/17 21:01 Dose: 20 mg Admin: 02/12/17 09:42 Dose: 20 mg Hydromorphone HCl (Dilaudid) 0.5 mg IVPUSH Q1H PRN PRN Reason: pain Piperacillin Sod/Tazobactam (Sod 4.5 gm/ Sodium Chloride) 100 mls @ 25 mls/hr IV Q8H [facility] [place] Last Admin: 02/16/17 06:45 Dose: 25 mls/hr Infusion: 02/16/17 03:41 Dose: 25 mls/hr Admin: 02/15/17 23:41 Dose: 25 mls/hr Infusion: 02/15/17 19:23 Dose: 25 mls/hr Admin: 02/15/17 15:23 Dose: 25 mls/hr Ketorolac Tromethamine (Toradol) 30 mg IVPUSH Q6H PRN PRN Reason: Pain Stop: 02/17/17 17:16 Last Admin: 02/15/17 13:59 Dose: 30 mg Admin: 02/15/17 02:57 Dose: 30 mg Admin: 02/14/17 16:31 Dose: 30 mg Admin: 02/14/17 08:02 Dose: 30 mg Admin: 02/14/17 01:22 Dose: 30 mg Admin: 02/13/17 15:01 Dose: 30 mg Admin: 02/13/17 09:01 Dose: 30 mg Admin: 02/13/17 02:13 Dose: 30 mg Admin: 02/12/17 17:51 Dose: 30 mg Lorazepam (Ativan) 1 - 2 mg PO Q4H PRN; Protocol PRN Reason: Withdrawal Symptoms Oxycodone/Acetaminophen (Percocet 325-5 Mg) 1 tab PO Q4H PRN PRN Reason: Pain Last Admin: 02/16/17 09:23 Dose: 1 tab Admin: 02/15/17 23:50 Dose: 1 tab Admin: 02/15/17 13:58 Dose: 1 tab Admin: 02/15/17 07:59 Dose: 1 tab Quetiapine Fumarate (Seroquel) 25 mg PO BEDTIME BRIAN Last Admin: 02/15/17 20:12 Dose: 25 mg Admin: 02/14/17 20:17 Dose: 25 mg Admin: 02/13/17 20:58 Dose: 25 mg Admin: 02/12/17 21:01 Dose: 25 mg Zolpidem Tartrate (Ambien) 5 mg PO BEDTIME PRN PRN Reason: Insomnia - Assessment Assessment (Free Text/Narrative):: Doing well. Normal temperature and normal white blood cell count. Affect and mood have increase significantly. No evidence of alcohol or drug withdrawal. - Plan Plan (Free Text/Narrative):: Same.
[2017-02-16] MEDS: QUEtiapine 25 MG Tab PO SCH (21:56)
[2017-02-17] MEDS: Piperacillin/Tazobactam 4.5 GM in Sodium Chloride 0.9% 100 ML IV SCH ×3 (06:29→23:05)
[2017-02-17] MEDS ORDERED: Furosemide 20 MG Tab PO ONE (08:07)
[2017-02-17] MEDS ORDERED: Potassium Chloride 20 MEQ Tab.ER PO ONE (08:23)
--- NOTE | 2017-02-17 08:23 | PCM.SURGPN ---
- General Info Date of Service: 02/17/17 POD#: 6 Functional Status: Reports: pain controlled, tolerating diet, ambulating, urinating - Review of Systems General: Reports: Night Sweats - Patient Data Vitals - most recent: Last Vital Signs Temp 37.2 C 02/17/17 03:58 Pulse 65 02/17/17 03:58 Resp 16 02/17/17 03:58 BP 142/88 H 02/17/17 03:58 Pulse Ox 92 L 02/17/17 03:58 Weight - most recent: 60.237 kg I&O - last 24 hours: Intake & Output 02/16/17 02/17/17 02/17/17 22:59 06:59 14:59 Intake Total 1120 400 Balance 1120 400 Lab Results last 24 hrs: Laboratory Results - last 24 hr 02/12/17 Range/Units 05:48 HIV (1&2) Ag/Ab (Rapid) Non reactive (NR) Med Orders - Current: Current Medications Acetaminophen (Tylenol) 650 mg PO Q4H PRN PRN Reason: pain/fever Last Admin: 02/15/17 05:17 Dose: 650 mg Cyclobenzaprine HCl (Flexeril) 10 mg PO BID [facility] Last Admin: 02/16/17 21:56 Dose: 10 mg Famotidine (Pepcid) 20 mg IVPUSH BID [facility] Last Admin: 02/16/17 21:56 Dose: 20 mg Hydromorphone HCl (Dilaudid) 0.5 mg IVPUSH Q1H PRN PRN Reason: pain Piperacillin Sod/Tazobactam (Sod 4.5 gm/ Sodium Chloride) 100 mls @ 25 mls/hr IV Q8H [facility] Last Admin: 02/17/17 06:29 Dose: 25 mls/hr Ketorolac Tromethamine (Toradol) 30 mg IVPUSH Q6H PRN PRN Reason: Pain Stop: 02/17/17 17:16 Last Admin: 02/15/17 13:59 Dose: 30 mg Lorazepam (Ativan) 1 - 2 mg PO Q4H PRN; Protocol PRN Reason: Withdrawal Symptoms Oxycodone/Acetaminophen (Percocet 325-5 Mg) 1 tab PO Q4H PRN PRN Reason: Pain Last Admin: 02/16/17 22:41 Dose: 1 tab Quetiapine Fumarate (Seroquel) 25 mg PO BEDTIME [facility] Last Admin: 02/16/17 21:56 Dose: 25 mg Zolpidem Tartrate (Ambien) 5 mg PO BEDTIME PRN PRN Reason: Insomnia Discontinued Medications Chlordiazepoxide HCl (Librium) 25 mg PO BID [facility] Last Admin: 02/12/17 21:01 Dose: 25 mg Chlordiazepoxide HCl (Librium) 25 mg PO TID [facility] Last Admin: 02/15/17 08:01 Dose: Not Given Dexamethasone (Dexamethasone) Confirm Administered Dose 20 mg .ROUTE .STK-MED ONE Stop: 02/11/17 23:55 Diphtheria/Tetanus/Acell Pertussis (Adacel) 0.5 ml IM .ONCE ONE Stop: 02/13/17 13:01 Ephedrine Sulfate (Ephedrine Sulfate) 5 mg IVPUSH ASDIRECTED PRN PRN Reason: Hypotension Fentanyl (Sublimaze) Confirm Administered Dose 100 mcg .ROUTE .STK-MED ONE Stop: 02/11/17 22:33 Fentanyl (Sublimaze) Confirm Administered Dose 100 mcg .ROUTE .STK-MED ONE Stop: 02/11/17 23:05 Fentanyl (Sublimaze) 50 mcg IVPUSH Q5M PRN PRN Reason: Pain Stop: 02/11/17 23:27 Last Admin: 02/12/17 02:45 Dose: 50 mcg Fentanyl (Sublimaze) Confirm Administered Dose 250 mcg .ROUTE .STK-MED ONE Stop: 02/11/17 23:56 Fentanyl (Sublimaze) Confirm Administered Dose 100 mcg .ROUTE .STK-MED ONE Stop: 02/12/17 01:58 Last Admin: 02/12/17 11:38 Dose: Not Given Fentanyl (Sublimaze) 50 mcg IVPUSH Q5M PRN PRN Reason: Pain Stop: 02/12/17 02:22 Furosemide (Lasix) 20 mg PO ONETIME ONE Stop: 02/17/17 08:08 Glycopyrrolate () Confirm Administered Dose 1 mg .ROUTE .STK-MED ONE Stop: 02/12/17 00:51 Hydromorphone HCl (Dilaudid) 0.5 mg IVPUSH ONETIME ONE Stop: 02/11/17 21:16 Last Admin: 02/11/17 21:20 Dose: 0.5 mg Hydromorphone HCl (Dilaudid) Confirm Administered Dose 0.5 mg .ROUTE .STK-MED ONE Stop: 02/11/17 21:20 Last Admin: 02/11/17 21:22 Dose: Not Given Hydromorphone HCl (Dilaudid) 0.5 mg IVPUSH Q15M PRN PRN Reason: severe pain Stop: 02/11/17 23:27 Hydromorphone HCl (Dilaudid) Confirm Administered Dose 1 mg .ROUTE .STK-MED ONE Stop: 02/11/17 23:56 Hydromorphone HCl (Dilaudid) Confirm Administered Dose 1 mg .ROUTE .STK-MED ONE Stop: 02/12/17 00:39 Hydromorphone HCl (Dilaudid) 0.5 mg IVPUSH Q1H PRN PRN Reason: Pain (severe 7-10) Last Admin: 02/12/17 16:44 Dose: 0.5 mg Hydromorphone HCl (Dilaudid) 0.5 mg IVPUSH Q15M PRN PRN Reason: severe pain Stop: 02/12/17 02:22 Last Admin: 02/12/17 03:02 Dose: 0.5 mg Hydromorphone HCl (Dilaudid) 1 mg IVPUSH Q1H PRN PRN Reason: pain Last Admin: 02/15/17 05:56 Dose: 1 mg Sodium Chloride (Normal Saline) 1,000 mls @ 999 mls/hr IV ONETIME ONE Stop: 02/11/17 22:15 Last Admin: 02/11/17 21:19 Dose: 999 mls/hr Sodium Chloride (Normal Saline) Confirm Administered Dose 1,000 mls @ as directed .ROUTE .STK-MED ONE Stop: 02/11/17 21:21 Last Admin: 02/11/17 21:21 Dose: Not Given Lidocaine HCl (Xylocaine-Mpf 1%) Confirm Administered Dose 4 mls @ as directed .ROUTE .STK-MED ONE Stop: 02/11/17 22:33 Cefoxitin Sodium (Mefoxin In Dextrose,Iso-Osm 2 Gm/50 Ml) Confirm Administered Dose 50 mls @ as directed .ROUTE .STK-MED ONE Stop: 02/11/17 23:14 Phenylephrine HCl 1 mg/ Sodium (Chloride) 10.1 mls @ 1 mls/sec IV TITRATE BRIAN Lidocaine HCl (Xylocaine-Mpf 1%) Confirm Administered Dose 4 mls @ as directed .ROUTE .[facility] ONE Stop: 02/11/17 23:55 Lactated Ringer's (Ringers, Lactated) Confirm Administered Dose 3,000 mls @ as directed .ROUTE .[facility] ONE Stop: 02/11/17 23:55 Lactated Ringer's (Ringers, Lactated) Confirm Administered Dose 1,000 mls @ as directed .ROUTE .[facility] ONE Stop: 02/12/17 00:46 Sodium Chloride (Normal Saline) 1,000 mls @ 125 mls/hr IV ASDIRECTED [facility] Last Admin: 02/12/17 10:17 Dose: 125 mls/hr Cefoxitin Sodium 2 gm/ Sodium (Chloride) 100 mls @ 200 mls/hr IV Q6H [facility] Last Admin: 02/12/17 11:40 Dose: Not Given Cefoxitin Sodium 2 gm/ Premix 50 mls @ 100 mls/hr IV Q8HR [facility] Last Admin: 02/15/17 05:20 Dose: 100 mls/hr Magnesium Sulfate 2 gm/ Premix 50 mls @ 25 mls/hr IV ONETIME ONE Stop: 02/12/17 15:55 Last Admin: 02/12/17 14:21 Dose: 25 mls/hr Lactated Ringer's (Ringers, Lactated) 1,000 mls @ 100 mls/hr IV ASDIRECTED [facility] Last Admin: 02/14/17 22:55 Dose: 100 mls/hr Piperacillin Sod/Tazobactam (Sod 3.375 gm/ Sodium Chloride) 100 mls @ 25 mls/ hr IV Q6H [facility] Last Admin: 02/15/17 07:47 Dose: Not Given Piperacillin Sod/Tazobactam (Sod 4.5 gm/ Sodium Chloride) 100 mls @ 200 mls/hr IV ONETIME ONE Stop: 02/15/17 07:59 Last Admin: 02/15/17 07:57 Dose: 200 mls/hr Midazolam HCl (Versed 1 Mg/Ml) Confirm Administered Dose 2 mg .ROUTE .[facility] ONE Stop: 02/11/17 22:33 Midazolam HCl (Versed 1 Mg/Ml) 2 mg IVPUSH ONETIME PRN PRN Reason: Sedation Midazolam HCl (Versed 1 Mg/Ml) 2 mg IVPUSH ONETIME PRN PRN Reason: Sedation Neostigmine Methylsulfate (Neostigmine) Confirm Administered Dose 5 mg .ROUTE .STK-MED ONE Stop: 02/12/17 00:51 Ondansetron HCl (Zofran) 4 mg IVPUSH ONETIME PRN PRN Reason: Nausea/Vomiting Ondansetron HCl (Zofran) Confirm Administered Dose 4 mg .ROUTE .STK-MED ONE Stop: 02/11/17 23:55 Ondansetron HCl (Zofran) 4 mg IVPUSH Q6H PRN PRN Reason: Nausea/Vomiting Ondansetron HCl (Zofran) 4 mg IVPUSH ONETIME PRN PRN Reason: Nausea/Vomiting Pneumococcal Polyvalent Vaccine (Pneumovax 23) 0.5 ml IM .ONCE ONE Stop: 02/12/17 08:15 Propofol (Diprivan 20 Ml) Confirm Administered Dose 200 mg .ROUTE .STK-MED ONE Stop: 02/11/17 22:33 Propofol (Diprivan 20 Ml) Confirm Administered Dose 200 mg .ROUTE .STK-MED ONE Stop: 02/11/17 23:56 Rocuronium [place] (Zemuron) Confirm Administered Dose 50 mg .ROUTE .STK-MED ONE Stop: 02/11/17 23:55 Rocuronium [place] (Zemuron) Confirm Administered Dose 50 mg .ROUTE .STK-MED ONE Stop: 02/12/17 01:03 - Exam Wound/Incisions: dressing dry and intact Abdomen: soft, no tenderness, other (Viable and functioning stoma) Psy/Mental Status: alert, normal mood - Problem List & Annotations (1) Rectal foreign body SNOMED Code(s): 45210098 Code(s): T18.5XXA - FOREIGN BODY IN ANUS AND RECTUM, INITIAL ENCOUNTER Status: Acute Priority: High Current Visit: Yes Qualifiers: Encounter type: initial encounter Qualified Code(s): T18.5XXA - Foreign body in anus and rectum, initial encounter - Problem List Review Problem List Initiated/Reviewed/Updated: Yes - My Orders Last 24 Hours: Active Orders 24 hr Category Date Time Status AMPHET/METH EXT CONF (GCMS) Routine Lab 02/16/17 11:23 Received Medication Orders Acetaminophen (Tylenol) 650 mg PO Q4H PRN PRN Reason: pain/fever Last Admin: 02/15/17 05:17 Dose: 650 mg Admin: 02/13/17 20:07 Dose: 650 mg Cyclobenzaprine HCl (Flexeril) 10 mg PO BID [facility] Last Admin: 02/16/17 21:56 Dose: 10 mg Admin: 02/16/17 08:47 Dose: 10 mg Admin: 02/15/17 20:12 Dose: 10 mg Admin: 02/15/17 08:01 Dose: 10 mg Admin: 02/14/17 20:16 Dose: 10 mg Admin: 02/14/17 08:02 Dose: 10 mg Admin: 02/13/17 20:58 Dose: 10 mg Admin: 02/13/17 08:36 Dose: Admin: 02/12/17 21:01 Dose: 10 mg Famotidine (Pepcid) 20 mg IVPUSH BID [facility] Last Admin: 02/16/17 21:56 Dose: 20 mg Admin: 02/16/17 08:47 Dose: 20 mg Admin: 02/15/17 20:12 Dose: 20 mg Admin: 02/15/17 07:59 Dose: 20 mg Admin: 02/14/17 20:18 Dose: 20 mg Admin: 02/14/17 08:03 Dose: 20 mg Admin: 02/13/17 20:58 Dose: 20 mg Admin: 02/13/17 09:01 Dose: 20 mg Admin: 02/12/17 21:01 Dose: 20 mg Admin: 02/12/17 09:42 Dose: 20 mg Hydromorphone HCl (Dilaudid) 0.5 mg IVPUSH Q1H PRN PRN Reason: pain Piperacillin Sod/Tazobactam (Sod 4.5 gm/ Sodium Chloride) 100 mls @ 25 mls/hr IV Q8H [facility] Last Admin: 02/17/17 06:29 Dose: 25 mls/hr Infusion: 02/17/17 02:41 Dose: 25 mls/hr Admin: 02/16/17 22:41 Dose: 25 mls/hr Infusion: 02/16/17 19:10 Dose: 25 mls/hr Admin: 02/16/17 15:10 Dose: 25 mls/hr Infusion: 02/16/17 10:45 Dose: 25 mls/hr Admin: 02/16/17 06:45 Dose: 25 mls/hr Infusion: 02/16/17 03:41 Dose: 25 mls/hr Admin: 02/15/17 23:41 Dose: 25 mls/hr Infusion: 02/15/17 19:23 Dose: 25 mls/hr Admin: 02/15/17 15:23 Dose: 25 mls/hr Ketorolac Tromethamine (Toradol) 30 mg IVPUSH Q6H PRN PRN Reason: Pain Stop: 02/17/17 17:16 Last Admin: 02/15/17 13:59 Dose: 30 mg Admin: 02/15/17 02:57 Dose: 30 mg Admin: 02/14/17 16:31 Dose: 30 mg Admin: 02/14/17 08:02 Dose: 30 mg Admin: 02/14/17 01:22 Dose: 30 mg Admin: 02/13/17 15:01 Dose: 30 mg Admin: 02/13/17 09:01 Dose: 30 mg Admin: 02/13/17 02:13 Dose: 30 mg Admin: 02/12/17 17:51 Dose: 30 mg Lorazepam (Ativan) 1 - 2 mg PO Q4H PRN; Protocol PRN Reason: Withdrawal Symptoms Oxycodone/Acetaminophen (Percocet 325-5 Mg) 1 tab PO Q4H PRN PRN Reason: Pain Last Admin: 02/16/17 22:41 Dose: 1 tab Admin: 02/16/17 09:23 Dose: 1 tab Admin: 02/15/17 23:50 Dose: 1 tab Admin: 02/15/17 13:58 Dose: 1 tab Admin: 02/15/17 07:59 Dose: 1 tab Quetiapine Fumarate (Seroquel) 25 mg PO BEDTIME [facility] Last Admin: 02/16/17 21:56 Dose: 25 mg Admin: 02/15/17 20:12 Dose: 25 mg Admin: 02/14/17 20:17 Dose: 25 mg Admin: 02/13/17 20:58 Dose: 25 mg Admin: 02/12/17 21:01 Dose: 25 mg Zolpidem Tartrate (Ambien) 5 mg PO BEDTIME PRN PRN Reason: Insomnia - Assessment Assessment (Free Text/Narrative):: Although the patient is ambulatory at times he becomes noncompliant with nursing instructions. Clearly it is in his best interest to be active during the day. He had some night sweats last night which I believe is part of the evolving inflammatory process. Given that his temperature and white blood cell count are normal and his abdominal exam is benign along with a functioning stoma as well as a falling neutrophil count I hope this is just a manifestation of the inflammatory response required to eradicate his infection. We are entering the window for abscess formation and I will closely follow him for this. - Plan Plan (Free Text/Narrative):: plan: Ambulation. Lasix 1.
[2017-02-17] MEDS: Famotidine 20 MG/2 ML SDV IVPUSH SCH ×2 (08:27→21:10)
[2017-02-17] MEDS: Cyclobenzaprine 10 MG Tab PO SCH ×2 (08:27→21:10)
--- NOTE | 2017-02-17 12:55 | CONS ---
CONSULTING PHYSICIAN: Constantin Pritchett LAC DATE OF CONSULTATION: 02/16/2017 TIME: 11:07 a.m. HISTORY OF PRESENT ILLNESS: The patient is a 46-year-old male, who was admitted to [facility] on 02/12/2017 with a perforated large colon. The patient was moved to [facility], and alcohol and drug consultation was requested by his medical treatment team on 02/13/2017. An alcohol and drug evaluation was attempted on 02/16/2017. The patient reports that he is amenable to the alcohol and drug evaluation, however he is experiencing pain at the moment and has little patience for redundant questioning that he has experienced by hospital staff throughout his stay. The patient was asked several substance abuse questions, however his answers were painfully and minimally offered. About 15 minutes into our evaluation, it became apparent that the patient was not medically appropriate to continue and the evaluation was postponed for a later date pending his medical condition and cooperation. I spoke with Cindi Davey and Dr. Saunders about the course of the evaluation and offered my continued services should that be required. MMODAL /[id number]
[2017-02-17] MEDS: Acetaminophen/oxyCODONE 325-5 MG Tab PO PRN ×2 (14:51→21:10)
[2017-02-17] MEDS: QUEtiapine 25 MG Tab PO SCH (21:10)
[2017-02-18] MEDS: Piperacillin/Tazobactam 4.5 GM in Sodium Chloride 0.9% 100 ML IV SCH ×3 (06:51→23:48)
[2017-02-18] MEDS: Cyclobenzaprine 10 MG Tab PO SCH ×2 (08:16→20:32)
[2017-02-18] MEDS: Acetaminophen/oxyCODONE 325-5 MG Tab PO PRN (08:16)
[2017-02-18] MEDS: Famotidine 20 MG/2 ML SDV IVPUSH SCH ×2 (08:16→20:32)
--- NOTE | 2017-02-18 14:11 | PCM.SURGPN ---
- General Info Functional Status: Reports: Pain Controlled, Tolerating Diet, Ambulating, Urinating, Incentive Spirometry - Patient Data Vitals - most recent: Last Vital Signs Temp 37.1 C 02/18/17 07:53 Pulse 65 02/18/17 07:53 Resp 14 02/18/17 07:53 BP 110/75 02/18/17 07:53 Pulse Ox 95 02/18/17 07:53 Weight - most recent: 58.513 kg I&O - last 24 hours: Intake & Output 02/17/17 02/18/17 02/18/17 22:59 06:59 14:59 Intake Total 1000 600 240 Output Total 1 Balance 1000 599 240 Med Orders - Current: Current Medications Acetaminophen (Tylenol) 650 mg PO Q4H PRN PRN Reason: pain/fever Last Admin: 02/15/17 05:17 Dose: 650 mg Cyclobenzaprine HCl (Flexeril) 10 mg PO BID [facility] Last Admin: 02/18/17 08:16 Dose: 10 mg Famotidine (Pepcid) 20 mg IVPUSH BID [facility] Last Admin: 02/18/17 08:16 Dose: 20 mg Hydromorphone HCl (Dilaudid) 0.5 mg IVPUSH Q1H PRN PRN Reason: pain Piperacillin Sod/Tazobactam (Sod 4.5 gm/ Sodium Chloride) 100 mls @ 25 mls/hr IV Q8H [facility] Last Admin: 02/18/17 06:51 Dose: 25 mls/hr Lorazepam (Ativan) 1 - 2 mg PO Q4H PRN; Protocol PRN Reason: Withdrawal Symptoms Oxycodone/Acetaminophen (Percocet 325-5 Mg) 1 tab PO Q4H PRN PRN Reason: Pain Last Admin: 02/18/17 08:16 Dose: 1 tab Quetiapine Fumarate (Seroquel) 25 mg PO BEDTIME [facility] Last Admin: 02/17/17 21:10 Dose: 25 mg Zolpidem Tartrate (Ambien) 5 mg PO BEDTIME PRN PRN Reason: Insomnia Discontinued Medications Chlordiazepoxide HCl (Librium) 25 mg PO BID [facility] Last Admin: 02/12/17 21:01 Dose: 25 mg Chlordiazepoxide HCl (Librium) 25 mg PO TID [facility] Last Admin: 02/15/17 08:01 Dose: Not Given Dexamethasone (Dexamethasone) Confirm Administered Dose 20 mg .ROUTE .STK-MED ONE Stop: 02/11/17 23:55 Diphtheria/Tetanus/Acell Pertussis (Adacel) 0.5 ml IM .ONCE ONE Stop: 02/13/17 13:01 Ephedrine Sulfate (Ephedrine Sulfate) 5 mg IVPUSH ASDIRECTED PRN PRN Reason: Hypotension Fentanyl (Sublimaze) Confirm Administered Dose 100 mcg .ROUTE .STK-MED ONE Stop: 02/11/17 22:33 Fentanyl (Sublimaze) Confirm Administered Dose 100 mcg .ROUTE .STK-MED ONE Stop: 02/11/17 23:05 Fentanyl (Sublimaze) 50 mcg IVPUSH Q5M PRN PRN Reason: Pain Stop: 02/11/17 23:27 Last Admin: 02/12/17 02:45 Dose: 50 mcg Fentanyl (Sublimaze) Confirm Administered Dose 250 mcg .ROUTE .STK-MED ONE Stop: 02/11/17 23:56 Fentanyl (Sublimaze) Confirm Administered Dose 100 mcg .ROUTE .STK-MED ONE Stop: 02/12/17 01:58 Last Admin: 02/12/17 11:38 Dose: Not Given Fentanyl (Sublimaze) 50 mcg IVPUSH Q5M PRN PRN Reason: Pain Stop: 02/12/17 02:22 Furosemide (Lasix) 20 mg PO ONETIME ONE Stop: 02/17/17 08:08 Last Admin: 02/17/17 08:27 Dose: 20 mg Glycopyrrolate () Confirm Administered Dose 1 mg .ROUTE .STK-MED ONE Stop: 02/12/17 00:51 Hydromorphone HCl (Dilaudid) 0.5 mg IVPUSH ONETIME ONE Stop: 02/11/17 21:16 Last Admin: 02/11/17 21:20 Dose: 0.5 mg Hydromorphone HCl (Dilaudid) Confirm Administered Dose 0.5 mg .ROUTE .STK-MED ONE Stop: 02/11/17 21:20 Last Admin: 02/11/17 21:22 Dose: Not Given Hydromorphone HCl (Dilaudid) 0.5 mg IVPUSH Q15M PRN PRN Reason: severe pain Stop: 02/11/17 23:27 Hydromorphone HCl (Dilaudid) Confirm Administered Dose 1 mg .ROUTE .STK-MED ONE Stop: 02/11/17 23:56 Hydromorphone HCl (Dilaudid) Confirm Administered Dose 1 mg .ROUTE .STK-MED ONE Stop: 02/12/17 00:39 Hydromorphone HCl (Dilaudid) 0.5 mg IVPUSH Q1H PRN PRN Reason: Pain (severe 7-10) Last Admin: 02/12/17 16:44 Dose: 0.5 mg Hydromorphone HCl (Dilaudid) 0.5 mg IVPUSH Q15M PRN PRN Reason: severe pain Stop: 02/12/17 02:22 Last Admin: 02/12/17 03:02 Dose: 0.5 mg Hydromorphone HCl (Dilaudid) 1 mg IVPUSH Q1H PRN PRN Reason: pain Last Admin: 02/15/17 05:56 Dose: 1 mg Sodium Chloride (Normal Saline) 1,000 mls @ 999 mls/hr IV ONETIME ONE Stop: 02/11/17 22:15 Last Admin: 02/11/17 21:19 Dose: 999 mls/hr Sodium Chloride (Normal Saline) Confirm Administered Dose 1,000 mls @ as directed .ROUTE .[facility] ONE Stop: 02/11/17 21:21 Last Admin: 02/11/17 21:21 Dose: Not Given Lidocaine HCl (Xylocaine-Mpf 1%) Confirm Administered Dose 4 mls @ as directed .ROUTE .[facility] ONE Stop: 02/11/17 22:33 Cefoxitin Sodium (Mefoxin In Dextrose,Iso-Osm 2 Gm/50 Ml) Confirm Administered Dose 50 mls @ as directed .ROUTE .[facility]-MED ONE Stop: 02/11/17 23:14 Phenylephrine HCl 1 mg/ Sodium (Chloride) 10.1 mls @ 1 mls/sec IV TITRATE BRIAN Lidocaine HCl (Xylocaine-Mpf 1%) Confirm Administered Dose 4 mls @ as directed .ROUTE .STK-MED ONE Stop: 02/11/17 23:55 Lactated Ringer's (Ringers, Lactated) Confirm Administered Dose 3,000 mls @ as directed .ROUTE .STK-MED ONE Stop: 02/11/17 23:55 Lactated Ringer's (Ringers, Lactated) Confirm Administered Dose 1,000 mls @ as directed .ROUTE .STK-MED ONE Stop: 02/12/17 00:46 Sodium Chloride (Normal Saline) 1,000 mls @ 125 mls/hr IV ASDIRECTED [facility] Last Admin: 02/12/17 10:17 Dose: 125 mls/hr Cefoxitin Sodium 2 gm/ Sodium (Chloride) 100 mls @ 200 mls/hr IV Q6H [facility] Last Admin: 02/12/17 11:40 Dose: Not Given Cefoxitin Sodium 2 gm/ Premix 50 mls @ 100 mls/hr IV Q8HR [facility] Last Admin: 02/15/17 05:20 Dose: 100 mls/hr Magnesium Sulfate 2 gm/ Premix 50 mls @ 25 mls/hr IV ONETIME ONE Stop: 02/12/17 15:55 Last Admin: 02/12/17 14:21 Dose: 25 mls/hr Lactated Ringer's (Ringers, Lactated) 1,000 mls @ 100 mls/hr IV ASDIRECTED [facility] Last Admin: 02/14/17 22:55 Dose: 100 mls/hr Piperacillin Sod/Tazobactam (Sod 3.375 gm/ Sodium Chloride) 100 mls @ 25 mls/ hr IV Q6H [facility] Last Admin: 02/15/17 07:47 Dose: Not Given Piperacillin Sod/Tazobactam (Sod 4.5 gm/ Sodium Chloride) 100 mls @ 200 mls/hr IV ONETIME ONE Stop: 02/15/17 07:59 Last Admin: 02/15/17 07:57 Dose: 200 mls/hr Ketorolac Tromethamine (Toradol) 30 mg IVPUSH Q6H PRN PRN Reason: Pain Stop: 02/17/17 17:16 Last Admin: 02/15/17 13:59 Dose: 30 mg Midazolam HCl (Versed 1 Mg/Ml) Confirm Administered Dose 2 mg .ROUTE .STK-MED ONE Stop: 02/11/17 22:33 Midazolam HCl (Versed 1 Mg/Ml) 2 mg IVPUSH ONETIME PRN PRN Reason: Sedation Midazolam HCl (Versed 1 Mg/Ml) 2 mg IVPUSH ONETIME PRN PRN Reason: Sedation Neostigmine Methylsulfate (Neostigmine) Confirm Administered Dose 5 mg .ROUTE .STK-MED ONE Stop: 02/12/17 00:51 Ondansetron HCl (Zofran) 4 mg IVPUSH ONETIME PRN PRN Reason: Nausea/Vomiting Ondansetron HCl (Zofran) Confirm Administered Dose 4 mg .ROUTE .STK-MED ONE Stop: 02/11/17 23:55 Ondansetron HCl (Zofran) 4 mg IVPUSH Q6H PRN PRN Reason: Nausea/Vomiting Ondansetron HCl (Zofran) 4 mg IVPUSH ONETIME PRN PRN Reason: Nausea/Vomiting Pneumococcal Polyvalent Vaccine (Pneumovax 23) 0.5 ml IM .ONCE ONE Stop: 02/12/17 08:15 Potassium Chloride (Klor-Con M20) 40 meq PO ONETIME ONE Stop: 02/17/17 08:24 Last Admin: 02/17/17 09:14 Dose: 40 meq Propofol (Diprivan 20 Ml) Confirm Administered Dose 200 mg .ROUTE .STK-MED ONE Stop: 02/11/17 22:33 Propofol (Diprivan 20 Ml) Confirm Administered Dose 200 mg .ROUTE .STK-MED ONE Stop: 02/11/17 23:56 Rocuronium [place] (Zemuron) Confirm Administered Dose 50 mg .ROUTE .STK-MED ONE Stop: 02/11/17 23:55 Rocuronium [place] (Zemuron) Confirm Administered Dose 50 mg .ROUTE .STK-MED ONE Stop: 02/12/17 01:03 - Exam Wound/Incisions: other (Some early granulation tissue) GI/Abdominal Exam: Other ([place] ileostomy and functioning) - Problem List & Annotations (1) Rectal foreign body SNOMED Code(s): 60872564 Code(s): T18.5XXA - FOREIGN BODY IN ANUS AND RECTUM, INITIAL ENCOUNTER Status: Acute Priority: High Current Visit: Yes Qualifiers: Encounter type: initial encounter Qualified Code(s): T18.5XXA - Foreign body in anus and rectum, initial encounter - Problem List Review Problem List Initiated/Reviewed/Updated: Yes - My Orders Last 24 Hours: Active Orders 24 hr Category Date Time Status CBC WITH AUTO DIFF [HEME] Routine Lab 02/18/17 14:08 Ordered COMPREHENSIVE METABOLIC PN,CMP [CHEM] Routine Lab 02/18/17 14:08 Ordered Medication Orders Acetaminophen (Tylenol) 650 mg PO Q4H PRN PRN Reason: pain/fever Last Admin: 02/15/17 05:17 Dose: 650 mg Admin: 02/13/17 20:07 Dose: 650 mg Cyclobenzaprine HCl (Flexeril) 10 mg PO BID [facility] Last Admin: 02/18/17 08:16 Dose: 10 mg Admin: 02/17/17 21:10 Dose: 10 mg Admin: 02/17/17 08:27 Dose: 10 mg Admin: 02/16/17 21:56 Dose: 10 mg Admin: 02/16/17 08:47 Dose: 10 mg Admin: 02/15/17 20:12 Dose: 10 mg Admin: 02/15/17 08:01 Dose: 10 mg Admin: 02/14/17 20:16 Dose: 10 mg Admin: 02/14/17 08:02 Dose: 10 mg Admin: 02/13/17 20:58 Dose: 10 mg Admin: 02/13/17 08:36 Dose: Admin: 02/12/17 21:01 Dose: 10 mg Famotidine (Pepcid) 20 mg IVPUSH BID [facility] Last Admin: 02/18/17 08:16 Dose: 20 mg Admin: 02/17/17 21:10 Dose: 20 mg Admin: 02/17/17 08:27 Dose: 20 mg Admin: 02/16/17 21:56 Dose: 20 mg Admin: 02/16/17 08:47 Dose: 20 mg Admin: 02/15/17 20:12 Dose: 20 mg Admin: 02/15/17 07:59 Dose: 20 mg Admin: 02/14/17 20:18 Dose: 20 mg Admin: 02/14/17 08:03 Dose: 20 mg Admin: 02/13/17 20:58 Dose: 20 mg Admin: 02/13/17 09:01 Dose: 20 mg Admin: 02/12/17 21:01 Dose: 20 mg Admin: 02/12/17 09:42 Dose: 20 mg Hydromorphone HCl (Dilaudid) 0.5 mg IVPUSH Q1H PRN PRN Reason: pain Piperacillin Sod/Tazobactam (Sod 4.5 gm/ Sodium Chloride) 100 mls @ 25 mls/hr IV Q8H [facility] Last Admin: 02/18/17 06:51 Dose: 25 mls/hr Infusion: 02/18/17 03:05 Dose: 25 mls/hr Admin: 02/17/17 23:05 Dose: 25 mls/hr Infusion: 02/17/17 18:50 Dose: 25 mls/hr Admin: 02/17/17 14:50 Dose: 25 mls/hr Infusion: 02/17/17 10:29 Dose: 25 mls/hr Admin: 02/17/17 06:29 Dose: 25 mls/hr Infusion: 02/17/17 02:41 Dose: 25 mls/hr Admin: 02/16/17 22:41 Dose: 25 mls/hr Infusion: 02/16/17 19:10 Dose: 25 mls/hr Admin: 02/16/17 15:10 Dose: 25 mls/hr Infusion: 02/16/17 10:45 Dose: 25 mls/hr Admin: 02/16/17 06:45 Dose: 25 mls/hr Infusion: 02/16/17 03:41 Dose: 25 mls/hr Admin: 02/15/17 23:41 Dose: 25 mls/hr Infusion: 02/15/17 19:23 Dose: 25 mls/hr Admin: 02/15/17 15:23 Dose: 25 mls/hr Lorazepam (Ativan) 1 - 2 mg PO Q4H PRN; Protocol PRN Reason: Withdrawal Symptoms Oxycodone/Acetaminophen (Percocet 325-5 Mg) 1 tab PO Q4H PRN PRN Reason: Pain Last Admin: 02/18/17 08:16 Dose: 1 tab Admin: 02/17/17 21:10 Dose: 1 tab Admin: 02/17/17 14:51 Dose: 1 tab Admin: 02/16/17 22:41 Dose: 1 tab Admin: 02/16/17 09:23 Dose: 1 tab Admin: 02/15/17 23:50 Dose: 1 tab Admin: 02/15/17 13:58 Dose: 1 tab Admin: 02/15/17 07:59 Dose: 1 tab Quetiapine Fumarate (Seroquel) 25 mg PO BEDTIME BRIAN Last Admin: 02/17/17 21:10 Dose: 25 mg Admin: 02/16/17 21:56 Dose: 25 mg Admin: 02/15/17 20:12 Dose: 25 mg Admin: 02/14/17 20:17 Dose: 25 mg Admin: 02/13/17 20:58 Dose: 25 mg Admin: 02/12/17 21:01 Dose: 25 mg Zolpidem Tartrate (Ambien) 5 mg PO BEDTIME PRN PRN Reason: Insomnia - Assessment Assessment (Free Text/Narrative):: Should be able to be discharged tomorrow. I will check his labs today. He will need outpatient antibiotics for 7 more days. - Plan Plan (Free Text/Narrative):: Labs. Discussion with discharge planning.
[2017-02-18] MEDS: QUEtiapine 25 MG Tab PO SCH (20:32)
[2017-02-19 03:52] VITALS: BP 100/65
[2017-02-19] MEDS: Famotidine 20 MG/2 ML SDV IVPUSH SCH (08:11)
[2017-02-19] MEDS: Piperacillin/Tazobactam 4.5 GM in Sodium Chloride 0.9% 100 ML IV SCH (08:11)
[2017-02-19] MEDS: Cyclobenzaprine 10 MG Tab PO SCH (08:11)
--- NOTE | 2017-02-19 08:43 | PCM.SURGPN ---
- General Info Date of Service: 02/19/17 Functional Status: Reports: Pain Controlled, Tolerating Diet, Ambulating, Urinating, Incentive Spirometry - Review of Systems General: Reports: No Symptoms Gastrointestinal: Reports: No Symptoms - Patient Data Vitals - most recent: Last Vital Signs Temp 36.7 C 02/19/17 03:21 Pulse 71 02/19/17 03:21 Resp 16 02/18/17 20:13 BP 100/65 02/19/17 03:21 Pulse Ox 94 L 02/19/17 03:21 Weight - most recent: 57.606 kg I&O - last 24 hours: Intake & Output 02/18/17 02/19/17 02/19/17 22:59 06:59 14:59 Intake Total 922 100 Output Total 650 100 Balance 272 0 Lab Results last 24 hrs: Laboratory Results - last 24 hr 02/18/17 02/18/17 Range/Units 14:38 14:38 WBC 9.27 H (4.23-9.07) K/mm3 RBC 4.15 L (4.63-6.08) M/mm3 Hgb 12.6 L (13.7-17.5) gm/L Hct 37.2 L (40.1-51.0) % MCV 89.6 (79.0-92.2) fl MCH 30.4 (25.7-32.2) pg MCHC 33.9 (32.2-35.5) g/dl RDW Std Deviation 40.5 (35.1-43.9) fL Plt Count 407 H (163-337) K/mm3 MPV 9.3 L (9.4-12.3) fl Neut % (Auto) 70.2 H (34.0-67.9) % Lymph % (Auto) 16.2 L (21.8-53.1) % [place] % (Auto) 9.0 (5.3-12.2) % Eos % (Auto) 3.9 (0.8-7.0) Baso % (Auto) 0.4 (0.1-1.2) % Neut # (Auto) 6.51 H (1.78-5.38) K/mm3 Lymph # (Auto) 1.50 (1.32-3.57) K/mm3 [place] # (Auto) 0.83 H (0.30-0.82) K/mm3 Eos # (Auto) 0.36 (0.04-0.54) K/mm3 Baso # (Auto) 0.04 (0.01-0.08) K/mm3 Manual Slide Review Normal smear Sodium 140 (136-145) mEq/L Potassium 4.0 (3.5-5.1) mEq/L Chloride 105 (98-107) mEq/L Carbon Dioxide 27 (21-32) mEq/L Anion Gap 12.0 (5-15) BUN 12 (7-18) mg/dL Creatinine 1.1 (0.7-1.3) mg/dL Est Cr Clr Drug Dosing 70.19 mL/min Estimated GFR (MDRD) > 60 (>60) mL/min BUN/Creatinine Ratio 10.9 L (14-18) Glucose 163 H (74-106) mg/dL Calcium 9.4 (8.5-10.1) mg/dL Total Bilirubin 0.2 (0.2-1.0) mg/dL AST 11 L (15-37) U/L ALT 20 (16-63) U/L Alkaline Phosphatase 45 L (46-116) U/L Total Protein 6.8 (6.4-8.2) g/dl Albumin 2.6 L (3.4-5.0) g/dl Globulin 4.2 gm/dL Albumin/Globulin Ratio 0.6 L (1-2) Med Orders - Current: Current Medications Acetaminophen (Tylenol) 650 mg PO Q4H PRN PRN Reason: pain/fever Last Admin: 02/15/17 05:17 Dose: 650 mg Cyclobenzaprine HCl (Flexeril) 10 mg PO BID [facility] Last Admin: 02/19/17 08:11 Dose: 10 mg Famotidine (Pepcid) 20 mg IVPUSH BID [facility] Last Admin: 02/19/17 08:11 Dose: 20 mg Hydromorphone HCl (Dilaudid) 0.5 mg IVPUSH Q1H PRN PRN Reason: pain Piperacillin Sod/Tazobactam (Sod 4.5 gm/ Sodium Chloride) 100 mls @ 25 mls/hr IV Q8H [facility] Last Admin: 02/19/17 08:11 Dose: 25 mls/hr Lorazepam (Ativan) 1 - 2 mg PO Q4H PRN; Protocol PRN Reason: Withdrawal Symptoms Oxycodone/Acetaminophen (Percocet 325-5 Mg) 1 tab PO Q4H PRN PRN Reason: Pain Last Admin: 02/18/17 08:16 Dose: 1 tab Quetiapine Fumarate (Seroquel) 25 mg PO BEDTIME [facility] Last Admin: 02/18/17 20:32 Dose: 25 mg Zolpidem Tartrate (Ambien) 5 mg PO BEDTIME PRN PRN Reason: Insomnia Discontinued Medications Chlordiazepoxide HCl (Librium) 25 mg PO BID [facility] Last Admin: 02/12/17 21:01 Dose: 25 mg Chlordiazepoxide HCl (Librium) 25 mg PO TID [facility] Last Admin: 02/15/17 08:01 Dose: Not Given Dexamethasone (Dexamethasone) Confirm Administered Dose 20 mg .ROUTE .STK-MED ONE Stop: 02/11/17 23:55 Diphtheria/Tetanus/Acell Pertussis (Adacel) 0.5 ml IM .ONCE ONE Stop: 02/13/17 13:01 Ephedrine Sulfate (Ephedrine Sulfate) 5 mg IVPUSH ASDIRECTED PRN PRN Reason: Hypotension Fentanyl (Sublimaze) Confirm Administered Dose 100 mcg .ROUTE .STK-MED ONE Stop: 02/11/17 22:33 Fentanyl (Sublimaze) Confirm Administered Dose 100 mcg .ROUTE .STK-MED ONE Stop: 02/11/17 23:05 Fentanyl (Sublimaze) 50 mcg IVPUSH Q5M PRN PRN Reason: Pain Stop: 02/11/17 23:27 Last Admin: 02/12/17 02:45 Dose: 50 mcg Fentanyl (Sublimaze) Confirm Administered Dose 250 mcg .ROUTE .STK-MED ONE Stop: 02/11/17 23:56 Fentanyl (Sublimaze) Confirm Administered Dose 100 mcg .ROUTE .STK-MED ONE Stop: 02/12/17 01:58 Last Admin: 02/12/17 11:38 Dose: Not Given Fentanyl (Sublimaze) 50 mcg IVPUSH Q5M PRN PRN Reason: Pain Stop: 02/12/17 02:22 Furosemide (Lasix) 20 mg PO ONETIME ONE Stop: 02/17/17 08:08 Last Admin: 02/17/17 08:27 Dose: 20 mg Glycopyrrolate () Confirm Administered Dose 1 mg .ROUTE .STK-MED ONE Stop: 02/12/17 00:51 Hydromorphone HCl (Dilaudid) 0.5 mg IVPUSH ONETIME ONE Stop: 02/11/17 21:16 Last Admin: 02/11/17 21:20 Dose: 0.5 mg Hydromorphone HCl (Dilaudid) Confirm Administered Dose 0.5 mg .ROUTE .STK-MED ONE Stop: 02/11/17 21:20 Last Admin: 02/11/17 21:22 Dose: Not Given Hydromorphone HCl (Dilaudid) 0.5 mg IVPUSH Q15M PRN PRN Reason: severe pain Stop: 02/11/17 23:27 Hydromorphone HCl (Dilaudid) Confirm Administered Dose 1 mg .ROUTE .STK-MED ONE Stop: 02/11/17 23:56 Hydromorphone HCl (Dilaudid) Confirm Administered Dose 1 mg .ROUTE .STK-MED ONE Stop: 02/12/17 00:39 Hydromorphone HCl (Dilaudid) 0.5 mg IVPUSH Q1H PRN PRN Reason: Pain (severe 7-10) Last Admin: 02/12/17 16:44 Dose: 0.5 mg Hydromorphone HCl (Dilaudid) 0.5 mg IVPUSH Q15M PRN PRN Reason: severe pain Stop: 02/12/17 02:22 Last Admin: 02/12/17 03:02 Dose: 0.5 mg Hydromorphone HCl (Dilaudid) 1 mg IVPUSH Q1H PRN PRN Reason: pain Last Admin: 02/15/17 05:56 Dose: 1 mg Sodium Chloride (Normal Saline) 1,000 mls @ 999 mls/hr IV ONETIME ONE Stop: 02/11/17 22:15 Last Admin: 02/11/17 21:19 Dose: 999 mls/hr Sodium Chloride (Normal Saline) Confirm Administered Dose 1,000 mls @ as directed .ROUTE .STK-MED ONE Stop: 02/11/17 21:21 Last Admin: 02/11/17 21:21 Dose: Not Given Lidocaine HCl (Xylocaine-Mpf 1%) Confirm Administered Dose 4 mls @ as directed .ROUTE .STK-MED ONE Stop: 02/11/17 22:33 Cefoxitin Sodium (Mefoxin In Dextrose,Iso-Osm 2 Gm/50 Ml) Confirm Administered Dose 50 mls @ as directed .ROUTE .[facility]-MED ONE Stop: 02/11/17 23:14 Phenylephrine HCl 1 mg/ Sodium (Chloride) 10.1 mls @ 1 mls/sec IV TITRATE [facility]AN Lidocaine HCl (Xylocaine-Mpf 1%) Confirm Administered Dose 4 mls @ as directed .ROUTE .[facility]-MED ONE Stop: 02/11/17 23:55 Lactated Ringer's (Ringers, Lactated) Confirm Administered Dose 3,000 mls @ as directed .ROUTE .[facility] ONE Stop: 02/11/17 23:55 Lactated Ringer's (Ringers, Lactated) Confirm Administered Dose 1,000 mls @ as directed .ROUTE .[facility] ONE Stop: 02/12/17 00:46 Sodium Chloride (Normal Saline) 1,000 mls @ 125 mls/hr IV ASDIRECTED [facility] Last Admin: 02/12/17 10:17 Dose: 125 mls/hr Cefoxitin Sodium 2 gm/ Sodium (Chloride) 100 mls @ 200 mls/hr IV Q6H [facility] Last Admin: 02/12/17 11:40 Dose: Not Given Cefoxitin Sodium 2 gm/ Premix 50 mls @ 100 mls/hr IV Q8HR [facility] Last Admin: 02/15/17 05:20 Dose: 100 mls/hr Magnesium Sulfate 2 gm/ Premix 50 mls @ 25 mls/hr IV ONETIME ONE Stop: 02/12/17 15:55 Last Admin: 02/12/17 14:21 Dose: 25 mls/hr Lactated Ringer's (Ringers, Lactated) 1,000 mls @ 100 mls/hr IV ASDIRECTED [facility] Last Admin: 02/14/17 22:55 Dose: 100 mls/hr Piperacillin Sod/Tazobactam (Sod 3.375 gm/ Sodium Chloride) 100 mls @ 25 mls/ hr IV Q6H [facility] Last Admin: 02/15/17 07:47 Dose: Not Given Piperacillin Sod/Tazobactam (Sod 4.5 gm/ Sodium Chloride) 100 mls @ 200 mls/hr IV ONETIME ONE Stop: 02/15/17 07:59 Last Admin: 02/15/17 07:57 Dose: 200 mls/hr Ketorolac Tromethamine (Toradol) 30 mg IVPUSH Q6H PRN PRN Reason: Pain Stop: 02/17/17 17:16 Last Admin: 02/15/17 13:59 Dose: 30 mg Midazolam HCl (Versed 1 Mg/Ml) Confirm Administered Dose 2 mg .ROUTE .STK-MED ONE Stop: 02/11/17 22:33 Midazolam HCl (Versed 1 Mg/Ml) 2 mg IVPUSH ONETIME PRN PRN Reason: Sedation Midazolam HCl (Versed 1 Mg/Ml) 2 mg IVPUSH ONETIME PRN PRN Reason: Sedation Neostigmine Methylsulfate (Neostigmine) Confirm Administered Dose 5 mg .ROUTE .STK-MED ONE Stop: 02/12/17 00:51 Ondansetron HCl (Zofran) 4 mg IVPUSH ONETIME PRN PRN Reason: Nausea/Vomiting Ondansetron HCl (Zofran) Confirm Administered Dose 4 mg .ROUTE .STK-MED ONE Stop: 02/11/17 23:55 Ondansetron HCl (Zofran) 4 mg IVPUSH Q6H PRN PRN Reason: Nausea/Vomiting Ondansetron HCl (Zofran) 4 mg IVPUSH ONETIME PRN PRN Reason: Nausea/Vomiting Pneumococcal Polyvalent Vaccine (Pneumovax 23) 0.5 ml IM .ONCE ONE Stop: 02/12/17 08:15 Potassium Chloride (Klor-Con M20) 40 meq PO ONETIME ONE Stop: 02/17/17 08:24 Last Admin: 02/17/17 09:14 Dose: 40 meq Propofol (Diprivan 20 Ml) Confirm Administered Dose 200 mg .ROUTE .STK-MED ONE Stop: 02/11/17 22:33 Propofol (Diprivan 20 Ml) Confirm Administered Dose 200 mg .ROUTE .STK-MED ONE Stop: 02/11/17 23:56 Rocuronium [place] (Zemuron) Confirm Administered Dose 50 mg .ROUTE .STK-MED ONE Stop: 02/11/17 23:55 Rocuronium [place] (Zemuron) Confirm Administered Dose 50 mg .ROUTE .STK-MED ONE Stop: 02/12/17 01:03 - Exam Wound/Incisions: dressing dry and intact GI/Abdominal Exam: Normal Bowel Sounds, Soft, Non-Tender - Problem List & Annotations (1) Rectal foreign body SNOMED Code(s): 92784950 Code(s): T18.5XXA - FOREIGN BODY IN ANUS AND RECTUM, INITIAL ENCOUNTER Status: Acute Priority: High Current Visit: Yes Qualifiers: Encounter type: initial encounter Qualified Code(s): T18.5XXA - Foreign body in anus and rectum, initial encounter - Problem List Review Problem List Initiated/Reviewed/Updated: Yes - My Orders Last 24 Hours: Active Orders 24 hr Category Date Time Status Ready for Discharge [RC] PER UNIT ROUTINE Care 02/19/17 08:41 Ordered Medication Orders Acetaminophen (Tylenol) 650 mg PO Q4H PRN PRN Reason: pain/fever Last Admin: 02/15/17 05:17 Dose: 650 mg Admin: 02/13/17 20:07 Dose: 650 mg Cyclobenzaprine HCl (Flexeril) 10 mg PO BID [facility] Last Admin: 02/19/17 08:11 Dose: 10 mg Admin: 02/18/17 20:32 Dose: 10 mg Admin: 02/18/17 08:16 Dose: 10 mg Admin: 02/17/17 21:10 Dose: 10 mg Admin: 02/17/17 08:27 Dose: 10 mg Admin: 02/16/17 21:56 Dose: 10 mg Admin: 02/16/17 08:47 Dose: 10 mg Admin: 02/15/17 20:12 Dose: 10 mg Admin: 02/15/17 08:01 Dose: 10 mg Admin: 02/14/17 20:16 Dose: 10 mg Admin: 02/14/17 08:02 Dose: 10 mg Admin: 02/13/17 20:58 Dose: 10 mg Admin: 02/13/17 08:36 Dose: Admin: 02/12/17 21:01 Dose: 10 mg Famotidine (Pepcid) 20 mg IVPUSH BID [facility] Last Admin: 02/19/17 08:11 Dose: 20 mg Admin: 02/18/17 20:32 Dose: 20 mg Admin: 02/18/17 08:16 Dose: 20 mg Admin: 02/17/17 21:10 Dose: 20 mg Admin: 02/17/17 08:27 Dose: 20 mg Admin: 02/16/17 21:56 Dose: 20 mg Admin: 02/16/17 08:47 Dose: 20 mg Admin: 02/15/17 20:12 Dose: 20 mg Admin: 02/15/17 07:59 Dose: 20 mg Admin: 02/14/17 20:18 Dose: 20 mg Admin: 02/14/17 08:03 Dose: 20 mg Admin: 02/13/17 20:58 Dose: 20 mg Admin: 02/13/17 09:01 Dose: 20 mg Admin: 02/12/17 21:01 Dose: 20 mg Admin: 02/12/17 09:42 Dose: 20 mg Hydromorphone HCl (Dilaudid) 0.5 mg IVPUSH Q1H PRN PRN Reason: pain Piperacillin Sod/Tazobactam (Sod 4.5 gm/ Sodium Chloride) 100 mls @ 25 mls/hr IV Q8H [facility] Last Admin: 02/19/17 08:11 Dose: 25 mls/hr Infusion: 02/19/17 03:48 Dose: 25 mls/hr Admin: 02/18/17 23:48 Dose: 25 mls/hr Infusion: 02/18/17 18:48 Dose: 25 mls/hr Admin: 02/18/17 14:48 Dose: 25 mls/hr Infusion: 02/18/17 10:51 Dose: 25 mls/hr Admin: 02/18/17 06:51 Dose: 25 mls/hr Infusion: 02/18/17 03:05 Dose: 25 mls/hr Admin: 02/17/17 23:05 Dose: 25 mls/hr Infusion: 02/17/17 18:50 Dose: 25 mls/hr Admin: 02/17/17 14:50 Dose: 25 mls/hr Infusion: 02/17/17 10:29 Dose: 25 mls/hr Admin: 02/17/17 06:29 Dose: 25 mls/hr Infusion: 02/17/17 02:41 Dose: 25 mls/hr Admin: 02/16/17 22:41 Dose: 25 mls/hr Infusion: 02/16/17 19:10 Dose: 25 mls/hr Admin: 02/16/17 15:10 Dose: 25 mls/hr Infusion: 02/16/17 10:45 Dose: 25 mls/hr Admin: 02/16/17 06:45 Dose: 25 mls/hr Infusion: 02/16/17 03:41 Dose: 25 mls/hr Admin: 02/15/17 23:41 Dose: 25 mls/hr Infusion: 02/15/17 19:23 Dose: 25 mls/hr Admin: 02/15/17 15:23 Dose: 25 mls/hr Lorazepam (Ativan) 1 - 2 mg PO Q4H PRN; Protocol PRN Reason: Withdrawal Symptoms Oxycodone/Acetaminophen (Percocet 325-5 Mg) 1 tab PO Q4H PRN PRN Reason: Pain Last Admin: 02/18/17 08:16 Dose: 1 tab Admin: 02/17/17 21:10 Dose: 1 tab Admin: 02/17/17 14:51 Dose: 1 tab Admin: 02/16/17 22:41 Dose: 1 tab Admin: 02/16/17 09:23 Dose: 1 tab Admin: 02/15/17 23:50 Dose: 1 tab Admin: 02/15/17 13:58 Dose: 1 tab Admin: 02/15/17 07:59 Dose: 1 tab Quetiapine Fumarate (Seroquel) 25 mg PO BEDTIME [facility] Last Admin: 02/18/17 20:32 Dose: 25 mg Admin: 02/17/17 21:10 Dose: 25 mg Admin: 02/16/17 21:56 Dose: 25 mg Admin: 02/15/17 20:12 Dose: 25 mg Admin: 02/14/17 20:17 Dose: 25 mg Admin: 02/13/17 20:58 Dose: 25 mg Admin: 02/12/17 21:01 Dose: 25 mg Zolpidem Tartrate (Ambien) 5 mg PO BEDTIME PRN PRN Reason: Insomnia - Assessment Assessment (Free Text/Narrative):: Ready for discharge Plan discharge today. The discharge instructions were verbally given to the patient with the charge nurse in attendance. He was also provided with a written list of instructions as well. I asked him to call me at my office at any time if he had concerns or questions between now and his planned follow-up visit. He said that he would.
--- NOTE | 2017-02-19 08:45 | PCM.DCSUM1 ---
Discharge Summary - Discharge Data Discharge Date: 02/19/17 Discharge Disposition: Home, Self-Care 01 Condition: Good - Discharge Diagnosis/Problem(s) (1) Rectal foreign body SNOMED Code(s): 64175068 ICD Code: T18.5XXA - FOREIGN BODY IN ANUS AND RECTUM, INITIAL ENCOUNTER Status: Acute Priority: High Current Visit: Yes Qualifiers: Encounter type: initial encounter Qualified Code(s): T18.5XXA - Foreign body in anus and rectum, initial encounter - Patient Summary/Data Operative Procedure(s) Performed: Exploratory laparotomy with primary closure of a 1 cm distal sigmoid perforation with creation of a loop ileostomy Complications: None Consults: Consultations 02/12/17 08:08 Consult to Physician [CONS] Routine 02/12/17 08:33 Consult for Substance Abuse [CONS] Routine Consult to Physician [CONS] Routine 02/13/17 11:54 Consult to Occupational Therapy [OT Evaluation and Treatment] [CONS] Routine Consult to Physical Therapy [PT Evaluation and Treatment] [CONS] Routine Labs Pending at D/C: None Recommended Follow-up Testing/Procedures: 1 week in my office Planned Operative Procedure(s) after DC: Ileostomy takedown in 2-4 weeks. Hospital Course: This patient had an uncomplicated postoperative course. He was brought from the recovery area to the floor where he was given IV antibiotics to treat his fecal peritonitis. Bowel function returned as expected. He was seen by social media editor to assist with his alcohol and drug abuse issues. After about a week of intravenous IV antibiotics he remained afebrile and maintained a normal white blood cell count. His wound was pink and healthy miladis. After satisfied all discharge criteria he was discharged home on postop day 8. - Patient Instructions Diet: Usual Diet as Tolerated Activity: As Tolerated Driving: May Drive Today Showering/Bathing: May Shower Wound/Incision Care: Keep Operative Site/Wound Site Clean and Dry, Change Dressing Daily (Moist gauze with water or saline to be placed in the incision site daily as instructed) Notify Provider of: Fever, Increased Pain, Nausea and/or Vomiting - Discharge Plan Home Medications: Home Meds . [No Known Home Meds] 02/11/17 [History] Patient Handouts: Smoking Cessation, Tips for Success, [id number], Addiction and the Family, Alcohol Use Disorder, Ileostomy Surgery, Care After, Alcohol Abuse and Nutrition, Ileostomy Surgery, Finding Treatment for Addiction, Stimulant Use Disorder-Methamphetamines, Alcohol Withdrawal, Bjtm-cs-Elit, Ileostomy Home Guide Referrals: PCP,Not In Area [Primary Care Provider] - Madan Orozco MD [Physician] - 02/26/17 1:00 pm (Follow up with Dr. Orozco on 02/26/17. Be there at 1230PM to check in. ) - Discharge Summary/Plan Comment DC Time >30 min.: No Discharge Summary/Plan Comment: See above. See progress note. - Patient Data Vitals - Most Recent: Last Vital Signs Temp 36.7 C 02/19/17 03:21 Pulse 71 02/19/17 03:21 Resp 16 02/18/17 20:13 BP 100/65 02/19/17 03:21 Pulse Ox 94 L 02/19/17 03:21 Weight - Most Recent: 57.606 kg I&O - Last 24 hours: Intake & Output 02/18/17 02/19/17 02/19/17 22:59 06:59 14:59 Intake Total 922 100 Output Total 650 100 Balance 272 0 Lab Results - Last 24 hrs: Laboratory Results - last 24 hr 02/18/17 02/18/17 Range/Units 14:38 14:38 WBC 9.27 H (4.23-9.07) K/mm3 RBC 4.15 L (4.63-6.08) M/mm3 Hgb 12.6 L (13.7-17.5) gm/L Hct 37.2 L (40.1-51.0) % MCV 89.6 (79.0-92.2) fl MCH 30.4 (25.7-32.2) pg MCHC 33.9 (32.2-35.5) g/dl RDW Std Deviation 40.5 (35.1-43.9) fL Plt Count 407 H (163-337) K/mm3 MPV 9.3 L (9.4-12.3) fl Neut % (Auto) 70.2 H (34.0-67.9) % Lymph % (Auto) 16.2 L (21.8-53.1) % [place] % (Auto) 9.0 (5.3-12.2) % Eos % (Auto) 3.9 (0.8-7.0) Baso % (Auto) 0.4 (0.1-1.2) % Neut # (Auto) 6.51 H (1.78-5.38) K/mm3 Lymph # (Auto) 1.50 (1.32-3.57) K/mm3 [place] # (Auto) 0.83 H (0.30-0.82) K/mm3 Eos # (Auto) 0.36 (0.04-0.54) K/mm3 Baso # (Auto) 0.04 (0.01-0.08) K/mm3 Manual Slide Review Normal smear Sodium 140 (136-145) mEq/L Potassium 4.0 (3.5-5.1) mEq/L Chloride 105 (98-107) mEq/L Carbon Dioxide 27 (21-32) mEq/L Anion Gap 12.0 (5-15) BUN 12 (7-18) mg/dL Creatinine 1.1 (0.7-1.3) mg/dL Est Cr Clr Drug Dosing 70.19 mL/min Estimated GFR (MDRD) > 60 (>60) mL/min BUN/Creatinine Ratio 10.9 L (14-18) Glucose 163 H (74-106) mg/dL Calcium 9.4 (8.5-10.1) mg/dL Total Bilirubin 0.2 (0.2-1.0) mg/dL AST 11 L (15-37) U/L ALT 20 (16-63) U/L Alkaline Phosphatase 45 L (46-116) U/L Total Protein 6.8 (6.4-8.2) g/dl Albumin 2.6 L (3.4-5.0) g/dl Globulin 4.2 gm/dL Albumin/Globulin Ratio 0.6 L (1-2) Med Orders - Current: Current Medications Acetaminophen (Tylenol) 650 mg PO Q4H PRN PRN Reason: pain/fever Last Admin: 02/15/17 05:17 Dose: 650 mg Cyclobenzaprine HCl (Flexeril) 10 mg PO BID [facility] Last Admin: 02/19/17 08:11 Dose: 10 mg Famotidine (Pepcid) 20 mg IVPUSH BID [facility] Last Admin: 02/19/17 08:11 Dose: 20 mg Hydromorphone HCl (Dilaudid) 0.5 mg IVPUSH Q1H PRN PRN Reason: pain Piperacillin Sod/Tazobactam (Sod 4.5 gm/ Sodium Chloride) 100 mls @ 25 mls/hr IV Q8H [facility] Last Admin: 02/19/17 08:11 Dose: 25 mls/hr Lorazepam (Ativan) 1 - 2 mg PO Q4H PRN; Protocol PRN Reason: Withdrawal Symptoms Oxycodone/Acetaminophen (Percocet 325-5 Mg) 1 tab PO Q4H PRN PRN Reason: Pain Last Admin: 02/18/17 08:16 Dose: 1 tab Quetiapine Fumarate (Seroquel) 25 mg PO BEDTIME [facility] Last Admin: 02/18/17 20:32 Dose: 25 mg Zolpidem Tartrate (Ambien) 5 mg PO BEDTIME PRN PRN Reason: Insomnia Discontinued Medications Chlordiazepoxide HCl (Librium) 25 mg PO BID [facility] Last Admin: 02/12/17 21:01 Dose: 25 mg Chlordiazepoxide HCl (Librium) 25 mg PO TID [facility] Last Admin: 02/15/17 08:01 Dose: Not Given Dexamethasone (Dexamethasone) Confirm Administered Dose 20 mg .ROUTE .STK-MED ONE Stop: 02/11/17 23:55 Diphtheria/Tetanus/Acell Pertussis (Adacel) 0.5 ml IM .ONCE ONE Stop: 02/13/17 13:01 Ephedrine Sulfate (Ephedrine Sulfate) 5 mg IVPUSH ASDIRECTED PRN PRN Reason: Hypotension Fentanyl (Sublimaze) Confirm Administered Dose 100 mcg .ROUTE .STK-MED ONE Stop: 02/11/17 22:33 Fentanyl (Sublimaze) Confirm Administered Dose 100 mcg .ROUTE .STK-MED ONE Stop: 02/11/17 23:05 Fentanyl (Sublimaze) 50 mcg IVPUSH Q5M PRN PRN Reason: Pain Stop: 02/11/17 23:27 Last Admin: 02/12/17 02:45 Dose: 50 mcg Fentanyl (Sublimaze) Confirm Administered Dose 250 mcg .ROUTE .STK-MED ONE Stop: 02/11/17 23:56 Fentanyl (Sublimaze) Confirm Administered Dose 100 mcg .ROUTE .STK-MED ONE Stop: 02/12/17 01:58 Last Admin: 02/12/17 11:38 Dose: Not Given Fentanyl (Sublimaze) 50 mcg IVPUSH Q5M PRN PRN Reason: Pain Stop: 02/12/17 02:22 Furosemide (Lasix) 20 mg PO ONETIME ONE Stop: 02/17/17 08:08 Last Admin: 02/17/17 08:27 Dose: 20 mg Glycopyrrolate () Confirm Administered Dose 1 mg .ROUTE .STK-MED ONE Stop: 02/12/17 00:51 Hydromorphone HCl (Dilaudid) 0.5 mg IVPUSH ONETIME ONE Stop: 02/11/17 21:16 Last Admin: 02/11/17 21:20 Dose: 0.5 mg Hydromorphone HCl (Dilaudid) Confirm Administered Dose 0.5 mg .ROUTE .STK-MED ONE Stop: 02/11/17 21:20 Last Admin: 02/11/17 21:22 Dose: Not Given Hydromorphone HCl (Dilaudid) 0.5 mg IVPUSH Q15M PRN PRN Reason: severe pain Stop: 02/11/17 23:27 Hydromorphone HCl (Dilaudid) Confirm Administered Dose 1 mg .ROUTE .STK-MED ONE Stop: 02/11/17 23:56 Hydromorphone HCl (Dilaudid) Confirm Administered Dose 1 mg .ROUTE .STK-MED ONE Stop: 02/12/17 00:39 Hydromorphone HCl (Dilaudid) 0.5 mg IVPUSH Q1H PRN PRN Reason: Pain (severe 7-10) Last Admin: 02/12/17 16:44 Dose: 0.5 mg Hydromorphone HCl (Dilaudid) 0.5 mg IVPUSH Q15M PRN PRN Reason: severe pain Stop: 02/12/17 02:22 Last Admin: 02/12/17 03:02 Dose: 0.5 mg Hydromorphone HCl (Dilaudid) 1 mg IVPUSH Q1H PRN PRN Reason: pain Last Admin: 02/15/17 05:56 Dose: 1 mg Sodium Chloride (Normal Saline) 1,000 mls @ 999 mls/hr IV ONETIME ONE Stop: 02/11/17 22:15 Last Admin: 02/11/17 21:19 Dose: 999 mls/hr Sodium Chloride (Normal Saline) Confirm Administered Dose 1,000 mls @ as directed .ROUTE .[facility]-MED ONE Stop: 02/11/17 21:21 Last Admin: 02/11/17 21:21 Dose: Not Given Lidocaine HCl (Xylocaine-Mpf 1%) Confirm Administered Dose 4 mls @ as directed .ROUTE .[facility]-MED ONE Stop: 02/11/17 22:33 Cefoxitin Sodium (Mefoxin In Dextrose,Iso-Osm 2 Gm/50 Ml) Confirm Administered Dose 50 mls @ as directed .ROUTE .[facility]-MED ONE Stop: 02/11/17 23:14 Phenylephrine HCl 1 mg/ Sodium (Chloride) 10.1 mls @ 1 mls/sec IV TITRATE BRIAN Lidocaine HCl (Xylocaine-Mpf 1%) Confirm Administered Dose 4 mls @ as directed .ROUTE .[facility] ONE Stop: 02/11/17 23:55 Lactated Ringer's (Ringers, Lactated) Confirm Administered Dose 3,000 mls @ as directed .ROUTE .[facility] ONE Stop: 02/11/17 23:55 Lactated Ringer's (Ringers, Lactated) Confirm Administered Dose 1,000 mls @ as directed .ROUTE .[facility] ONE Stop: 02/12/17 00:46 Sodium Chloride (Normal Saline) 1,000 mls @ 125 mls/hr IV ASDIRECTED [facility] Last Admin: 02/12/17 10:17 Dose: 125 mls/hr Cefoxitin Sodium 2 gm/ Sodium (Chloride) 100 mls @ 200 mls/hr IV Q6H [facility] Last Admin: 02/12/17 11:40 Dose: Not Given Cefoxitin Sodium 2 gm/ Premix 50 mls @ 100 mls/hr IV Q8HR [facility] Last Admin: 02/15/17 05:20 Dose: 100 mls/hr Magnesium Sulfate 2 gm/ Premix 50 mls @ 25 mls/hr IV ONETIME ONE Stop: 02/12/17 15:55 Last Admin: 02/12/17 14:21 Dose: 25 mls/hr Lactated Ringer's (Ringers, Lactated) 1,000 mls @ 100 mls/hr IV ASDIRECTED [facility] Last Admin: 02/14/17 22:55 Dose: 100 mls/hr Piperacillin Sod/Tazobactam (Sod 3.375 gm/ Sodium Chloride) 100 mls @ 25 mls/ hr IV Q6H [facility]AN Last Admin: 02/15/17 07:47 Dose: Not Given Piperacillin Sod/Tazobactam (Sod 4.5 gm/ Sodium Chloride) 100 mls @ 200 mls/hr IV ONETIME ONE Stop: 02/15/17 07:59 Last Admin: 02/15/17 07:57 Dose: 200 mls/hr Ketorolac Tromethamine (Toradol) 30 mg IVPUSH Q6H PRN PRN Reason: Pain Stop: 02/17/17 17:16 Last Admin: 02/15/17 13:59 Dose: 30 mg Midazolam HCl (Versed 1 Mg/Ml) Confirm Administered Dose 2 mg .ROUTE .STK-MED ONE Stop: 02/11/17 22:33 Midazolam HCl (Versed 1 Mg/Ml) 2 mg IVPUSH ONETIME PRN PRN Reason: Sedation Midazolam HCl (Versed 1 Mg/Ml) 2 mg IVPUSH ONETIME PRN PRN Reason: Sedation Neostigmine Methylsulfate (Neostigmine) Confirm Administered Dose 5 mg .ROUTE .STK-MED ONE Stop: 02/12/17 00:51 Ondansetron HCl (Zofran) 4 mg IVPUSH ONETIME PRN PRN Reason: Nausea/Vomiting Ondansetron HCl (Zofran) Confirm Administered Dose 4 mg .ROUTE .STK-MED ONE Stop: 02/11/17 23:55 Ondansetron HCl (Zofran) 4 mg IVPUSH Q6H PRN PRN Reason: Nausea/Vomiting Ondansetron HCl (Zofran) 4 mg IVPUSH ONETIME PRN PRN Reason: Nausea/Vomiting Pneumococcal Polyvalent Vaccine (Pneumovax 23) 0.5 ml IM .ONCE ONE Stop: 02/12/17 08:15 Potassium Chloride (Klor-Con M20) 40 meq PO ONETIME ONE Stop: 02/17/17 08:24 Last Admin: 02/17/17 09:14 Dose: 40 meq Propofol (Diprivan 20 Ml) Confirm Administered Dose 200 mg .ROUTE .STK-MED ONE Stop: 02/11/17 22:33 Propofol (Diprivan 20 Ml) Confirm Administered Dose 200 mg .ROUTE .STK-MED ONE Stop: 02/11/17 23:56 Rocuronium [place] (Zemuron) Confirm Administered Dose 50 mg .ROUTE .STK-MED ONE Stop: 02/11/17 23:55 Rocuronium [place] (Zemuron) Confirm Administered Dose 50 mg .ROUTE .STK-MED ONE Stop: 02/12/17 01:03 *Q Meaningful Use (DIS) - VTE *Q VTE Criteria *Q: - Stroke *Q Stroke Criteria *Q: - AMI *Q AMI Criteria *Q:
== END 2017-02-19 12:07 | disposition home or self-care (01) | DRG 329 ==
LOC: JD.ED 20:50 → JD.SDS 22:17 → JD.MS 02-12 01:52 → JD.ICU 02-12 09:47 → JD.MS 02-14 06:38
PROVIDERS: ADMIT Internal Medicine Cardiovascular Disease; ATTEND Surgery
PROC: 0DCN8ZZ Extirpation of Matter from Sigmoid Colon, Via Natural or Artificial Opening Endoscopic (ICD-10-PCS; principal; 2017-02-11)
PROC: 0DQN0ZZ Repair Sigmoid Colon, Open Approach (ICD-10-PCS; 2017-02-12)
PROC: 0D1B0Z4 Bypass Ileum to Cutaneous, Open Approach (ICD-10-PCS; 2017-02-12)
DX: T18.4XXA Foreign body in colon, initial encounter (principal); K65.8 Other peritonitis; F10.239 Alcohol dependence with withdrawal, unspecified; S36.533A Laceration of sigmoid colon, initial encounter; S36.69XA Other injury of rectum, initial encounter; F17.200 Nicotine dependence, unspecified, uncomplicated; F15.90 Other stimulant use, unspecified, uncomplicated; F10.229 Alcohol dependence with intoxication, unspecified; F32.9 Major depressive disorder, single episode, unspecified; R33.9 Retention of urine, unspecified; G47.00 Insomnia, unspecified
CPT/HCPCS: 00810; 36415; 51702; 51798; 71020; 71020-26; 74000; 74000-26; 80048; 80053; 80074; 80306; 83735; 85025; 85610; 85730; 86140; 86592; 87075; 87076; 87077; 87181; 87184; 87186; 87205; 87491; 87591; 90715; 90732; 93005; 96361; 96374; 97116-GP; 97162-GP; 97167-GO; 97530-GO; 99231; 99232; 99253; 99284; 99285-25; A9270-GY; G0009; G0475; G0480; J0694; J1100; J1170; J1885; J2250; J2405; J2543; J2704; J2710; J3010; J3475; J7030; J7040; J7120

== ENCOUNTER 2017-03-16 07:49 | Inpatient (IN) | payer SELFPAY ==
[~2017-03-16 07:49] MED LIST: Iodine/Sodium Iodide 2% Tincture 30 ML Bottle ONE; Lactated Ringers 1,000 ML IV SCH; Lidocaine 1% 4 ML ONE; Lidocaine 1%/Sod Bicarbonate in NS 8.4% 1 ML Syringe PRN; Midazolam 1 MG/ML 2 ML SDV ONE; Ondansetron 4 MG/2 ML SDV ONE; Phenylephrine 1% 10 MG/ML SDV ONE; Propofol 200 MG/20 ML SDV ONE; Rocuronium 50 MG/5 ML Vial ONE; Sodium Chloride 0.9% 10 ML Syringe FLUSH PRN; fentaNYL 250 MCG/5 ML SDV ONE
--- NOTE | 2017-03-16 08:03 | PCM.PREANE ---
Preanesthetic Assessment - Anesthesia/Transfusion/Family Hx Anesthesia History: Prior Anesthesia Without Reaction Transfusion History: No Prior Transfusion(s) Intubation History: Unknown (Grade II view documented) - Review of Systems General: No Symptoms Pulmonary: No Symptoms Cardiovascular: No Symptoms Gastrointestinal: No Symptoms Neurological: No Symptoms Other: Reports: None - Physical Assessment NPO Status Date: 03/15/17 NPO Status Time: 20:00 Pulse: 99 O2 Sat by Pulse Oximetry: 100 Blood Pressure: 145/117 Temperature: 98.0 C Height: 1.68 m Weight: 57.606 kg ASA Class: 2 Mental Status: Alert & Oriented x3 Airway Class: Mallampati = 2 Dentition: Reports: Broken Tooth/Teeth, Missing Tooth/Teeth (Multiple missing teeth, teeth in place are very loose, poor dention, patient was informed of the risk of loosing his teeth, dental damage due to poor dental status. ) ROM/Head Extension: Full Lungs: Clear to Auscultation, Normal Respiratory Effort Cardiovascular: Regular Rate, Regular Rhythm - Allergies Allergies/Adverse Reactions: Allergies Allergy/AdvReac Type Severity Reaction Status Date / Time No Known Allergies Allergy Verified 03/13/17 14:21 - Acknowledgements Anesthesia Type Planned: General Anesthesia Pt an Appropriate Candidate for the Planned Anesthesia: Yes Alternatives and Risks of Anesthesia Discussed w Pt/Guardian: Yes Pt/Guardian Understands and Agrees with Anesthesia Plan: Yes PreAnesthesia Questionnaire - Past Health History Medical/Surgical History: Denies Medical/Surgical History HEENT History: Reports: None Cardiovascular History: Reports: None Respiratory History: Reports: None Genitourinary History: Reports: None [place] History: Reports: None Musculoskeletal History: Reports: None Neurological History: Reports: None Psychiatric History: Reports: Addiction, Anxiety, Depression, Other (See Below) Other Psychiatric History: pt states he used to use meth in the past in his 20's Endocrine/Metabolic History: Reports: None Hematologic History: Reports: None Immunologic History: Reports: None Oncologic (Cancer) History: Reports: None Dermatologic History: Reports: None - Past Surgical History Head Surgeries/Procedures: Reports: None HEENT Surgical History: Reports: None Cardiovascular Surgical History: Reports: None GI Surgical History: Reports: Other (See Below) Other GI Surgeries/Procedures: ileostomy Endocrine Surgical History: Reports: None Neurological Surgical History: Reports: None Musculoskeletal Surgical History: Reports: None - SUBSTANCE USE Smoking Status *Q: Current Every Day Smoker Tobacco Use Within Last Twelve Months: Cigarettes Second Hand Smoke Exposure: No Days Per Week of Alcohol Use: 7 Number of Drinks Per Day: 6 Total Drinks Per Week: 42 Recreational Drug Use History: Yes Recreational Drug Type: Reports: Methamphetamine - HOME MEDS Home Medications: Home Meds Acetaminophen with Codeine [Tylenol with Codeine #3 Tablet] 1 - 2 each PO Q6HR PRN #24 tablet 02/19/17 [Rx] - CURRENT (IN HOUSE) MEDS Current Meds: Current Medications Lactated Ringer's (Ringers, Lactated) 1,000 mls @ 125 mls/hr IV ASDIRECTED BRIAN Lidocaine/Sodium Bicarbonate (Buffered Lidocaine 1% In Ns 8.4%) 0.25 ml IV ONETIME PRN PRN Reason: Prior to IV Start Sodium Chloride (Saline Flush) 10 ml FLUSH ASDIRECTED PRN PRN Reason: Keep Vein Open Discontinued Medications Fentanyl (Sublimaze) Confirm Administered Dose 250 mcg .ROUTE .STK-MED ONE Stop: 03/16/17 07:04 Lidocaine HCl (Xylocaine-Mpf 1%) Confirm Administered Dose 4 mls @ as directed .ROUTE .STK-MED ONE Stop: 03/16/17 07:03 Cefoxitin Sodium (Mefoxin In Dextrose,Iso-Osm 2 Gm/50 Ml) Confirm Administered Dose 50 mls @ as directed .ROUTE .STK-MED ONE Stop: 03/16/17 08:01 Midazolam HCl (Versed 1 Mg/Ml) Confirm Administered Dose 2 mg .ROUTE .STK-MED ONE Stop: 03/16/17 07:03 Ondansetron HCl (Zofran) Confirm Administered Dose 4 mg .ROUTE .STK-MED ONE Stop: 03/16/17 07:03 Phenylephrine HCl (Agustín-Synephrine) Confirm Administered Dose 10 mg .ROUTE .STK- MED ONE Stop: 03/16/17 07:03 Propofol (Diprivan 20 Ml) Confirm Administered Dose 200 mg .ROUTE .STK-MED ONE Stop: 03/16/17 07:03 Rocuronium [place] (Zemuron) Confirm Administered Dose 50 mg .ROUTE .STK-MED ONE Stop: 03/16/17 07:03
[2017-03-16] MEDS ORDERED: Ondansetron 4 MG/2 ML SDV IVPUSH PRN ×2 (08:49→10:31)
[2017-03-16] MEDS ORDERED: Dexamethasone 4 MG/ML 5 ML MDV ONE (08:59)
[2017-03-16] MEDS ORDERED: Albuterol 6.7 GM Inhaler INH ONE (08:59)
[2017-03-16] MEDS ORDERED: Glycopyrrolate 0.2 MG/ML SDV ONE (09:00)
[2017-03-16] MEDS ORDERED: Neostigmine Methylsulfate 10 MG/10 ML MDV ONE (09:00)
[2017-03-16] MEDS ORDERED: HYDROmorphone 1 MG/ML Syringe ONE ×2 (09:10→09:47)
[2017-03-16] MEDS ORDERED: Lactated Ringers 1,000 ML ONE (09:18)
[2017-03-16] MEDS ORDERED: Ketorolac 15 MG/ML SDV IM PRN (10:31)
--- NOTE | 2017-03-16 10:42 | PCM.OPNOTE ---
- General Post-Op/Procedure Note Date of Surgery/Procedure: 03/16/17 Operative Procedure(s): Takedown loop ileostomy Findings: Extensive chronic inflammation throughout the subcutaneous tissues. No infection seen. Pre Op Diagnosis: Protective loop ileostomy after rectal repair; ready for takedown Post-Op Diagnosis: Same Anesthesia Technique: General ET Tube Primary Surgeon: Madan Orozco Pathology: none EBL in mLs: 150 Complications: None Condition: Good Free Text/Narrative:: After adequate general endotracheal tube anesthesia the abdomen was prepped with Betadine and draped sterilely. A 15 blade was used to separate the loop ileostomy away from the skin. I used a combination of cautery, Metzenbaum scissor, and blunt finger dissection down to the fascia. I circumferentially the loop away from the surrounding subcutaneous tissue and digitally entered the abdomen circumferentially. Hemostasis was obtained with cautery. I excised the loop creating 2 open ends. I then performed a 2 layer handsewn end to end anastomosis with an outer layer of silk Lembert sutures and an inner layer of full-thickness running 3-0 Vicryl. The anastomosis was returned to the abdomen. I closed the posterior facets fascial sheath with running 2-0 Vicryl suture. The anterior fascial sheath was closed with a running 2-0 Vicryl suture. I partially closed the skin with charles excising the jagged edges. I irrigated out the subcutaneous tissues with saline. I then packed the subcutaneous layer with the 2 inch Kerlix soaked with saline and betadine. There were no procedural comp cases.
--- NOTE | 2017-03-16 10:48 | PCM.POSTAN ---
POST ANESTHESIA ASSESSMENT - MENTAL STATUS Mental Status: Alert, Oriented - VITAL SIGNS Pulse Rate: 95 SaO2: 98 Resp Rate: 8 Blood Pressure: 157/125 Temperature: 99.4 C - RESPIRATORY Respiratory Status: Respiratory Rate WNL, Airway Patent, O2 Saturation Stable - CARDIOVASCULAR CV Status: Pulse Rate WNL, Blood Pressure Stable - GASTROINTESTINAL GI Status: No Symptoms - PAIN Pain Score: 8 (Dilaudid given ) - POST OP HYDRATION Hydration Status: Adequate & Stable
[2017-03-16] MEDS: fentaNYL 100 MCG/2 ML SDV IVPUSH PRN ×2 (10:51→11:27)
[2017-03-16] MEDS: HYDROmorphone 0.5 MG/0.5 ML Syringe IVPUSH PRN ×2 (11:11→11:50)
[2017-03-16] MEDS: Lactated Ringers 1,000 ML IV SCH ×2 (11:58→20:20)
[2017-03-16] MEDS ORDERED: Pneumococcal Polyvalent-23 Vaccine 0.5 ML SDV IM ONE (13:56)
[2017-03-16] MEDS: Acetaminophen/oxyCODONE 325-5 MG Tab PO PRN ×2 (14:45→20:22)
[2017-03-16] MEDS: cefOXitin 2 GM in Premix Bag 1 BAG IV SCH ×2 (15:24→22:55)
[2017-03-16] MEDS ORDERED: Ketorolac 15 MG/ML SDV IVPUSH PRN (20:00)
[2017-03-17] MEDS ORDERED: Ketorolac 15 MG/ML SDV IVPUSH ONE (03:00)
[2017-03-17] MEDS: cefOXitin 2 GM in Premix Bag 1 BAG IV SCH ×4 (03:19→21:17)
[2017-03-17] MEDS: Lactated Ringers 1,000 ML IV SCH ×3 (03:20→21:17)
[2017-03-17] MEDS: Acetaminophen/oxyCODONE 325-5 MG Tab PO PRN ×5 (03:21→21:18)
--- NOTE | 2017-03-17 08:54 | PCM.SURGPN ---
- General Info Date of Service: 03/17/17 POD#: 1 Functional Status: Reports: Pain Controlled, Tolerating Diet, Ambulating, Urinating - Patient Data Vitals - Most Recent: Last Vital Signs Temp 36.8 C 03/17/17 03:25 Pulse 59 L 03/17/17 03:25 Resp 16 03/17/17 03:25 BP 112/99 H 03/17/17 03:25 Pulse Ox 99 03/17/17 03:25 Weight - Most Recent: 58.831 kg I&O - Last 24 Hours: Intake & Output 03/16/17 03/17/17 03/17/17 22:59 06:59 14:59 Intake Total 1480 1720 Output Total 650 Balance 1480 1070 Med Orders - Current: Current Medications Hydromorphone HCl (Dilaudid) 0.5 mg IVPUSH Q1H PRN PRN Reason: Pain (severe 7-10) Lactated Ringer's (Ringers, Lactated) 1,000 mls @ 125 mls/hr IV ASDIRECTED [facility] Last Admin: 03/17/17 03:20 Dose: 125 mls/hr Cefoxitin Sodium 2 gm/ Premix 50 mls @ 100 mls/hr IV Q6H [facility] Last Admin: 03/17/17 03:19 Dose: 100 mls/hr Ondansetron HCl (Zofran) 4 mg IVPUSH Q6H PRN PRN Reason: Nausea/Vomiting Oxycodone/Acetaminophen (Percocet 325-5 Mg) 1 tab PO Q4H PRN PRN Reason: Pain (moderate 4-6) Last Admin: 03/17/17 03:21 Dose: 1 tab Discontinued Medications Albuterol (Proventil Hfa) Confirm Administered Dose 6.7 gm INH .STK-MED ONE Stop: 03/16/17 09:00 Dexamethasone (Dexamethasone) Confirm Administered Dose 20 mg .ROUTE .STK-MED ONE Stop: 03/16/17 09:00 Fentanyl (Sublimaze) Confirm Administered Dose 250 mcg .ROUTE .STK-MED ONE Stop: 03/16/17 07:04 Fentanyl (Sublimaze) 100 mcg IVPUSH Q5M PRN PRN Reason: Pain Stop: 03/16/17 18:00 Last Admin: 03/16/17 11:27 Dose: 100 mcg Glycopyrrolate (Robinul) Confirm Administered Dose 0.2 mg .ROUTE .STK-MED ONE Stop: 03/16/17 09:01 Hydromorphone HCl (Dilaudid) 0.5 mg IVPUSH Q15M PRN PRN Reason: severe pain Stop: 03/16/17 10:01 Last Admin: 03/16/17 11:50 Dose: 0.5 mg Hydromorphone HCl (Dilaudid) Confirm Administered Dose 1 mg .ROUTE .STK-MED ONE Stop: 03/16/17 09:11 Hydromorphone HCl (Dilaudid) Confirm Administered Dose 1 mg .ROUTE .STK-MED ONE Stop: 03/16/17 09:48 Lactated Ringer's (Ringers, Lactated) 1,000 mls @ 125 mls/hr IV ASDIRECTED [facility] Stop: 03/16/17 23:00 Last Admin: 03/16/17 08:10 Dose: 125 mls/hr Lidocaine HCl (Xylocaine-Mpf 1%) Confirm Administered Dose 4 mls @ as directed .ROUTE .STK-MED ONE Stop: 03/16/17 07:03 Cefoxitin Sodium (Mefoxin In Dextrose,Iso-Osm 2 Gm/50 Ml) Confirm Administered Dose 50 mls @ as directed .ROUTE .STK-MED ONE Stop: 03/16/17 08:01 Lactated Ringer's (Ringers, Lactated) Confirm Administered Dose 1,000 mls @ as directed .ROUTE .STK-MED ONE Stop: 03/16/17 09:19 Iodine (Iodine 2% Mild Tincture) Confirm Administered Dose 30 ml .ROUTE .STK- MED ONE Stop: 03/16/17 07:45 Last Admin: 03/16/17 09:00 Dose: 4 ml Ketorolac Tromethamine (Toradol) 15 mg IM Q6H PRN PRN Reason: Pain Stop: 03/17/17 04:46 Last Admin: 03/16/17 14:44 Dose: 15 mg Ketorolac Tromethamine (Toradol) 15 mg IVPUSH Q6H PRN PRN Reason: Pain Stop: 03/17/17 02:01 Last Admin: 03/16/17 20:24 Dose: 15 mg Ketorolac Tromethamine (Toradol) 15 mg IVPUSH ONETIME ONE Stop: 03/17/17 03:01 Last Admin: 03/17/17 03:18 Dose: 15 mg Lidocaine/Sodium Bicarbonate (Buffered Lidocaine 1% In Ns 8.4%) 0.25 ml .XX ONETIME PRN PRN Reason: Prior to IV Start Stop: 03/16/17 18:00 Last Admin: 03/16/17 08:10 Dose: 0.25 ml Midazolam HCl (Versed 1 Mg/Ml) Confirm Administered Dose 2 mg .ROUTE .STK-MED ONE Stop: 03/16/17 07:03 Neostigmine Methylsulfate (Neostigmine Methylsulfate) Confirm Administered Dose 10 mg .ROUTE .STK-MED ONE Stop: 03/16/17 09:01 Ondansetron HCl (Zofran) Confirm Administered Dose 4 mg .ROUTE .STK-MED ONE Stop: 03/16/17 07:03 Ondansetron HCl (Zofran) 4 mg IVPUSH ONETIME PRN PRN Reason: Nausea/Vomiting Stop: 03/16/17 08:50 Phenylephrine HCl (Agustín-Synephrine) Confirm Administered Dose 10 mg .ROUTE .STK- MED ONE Stop: 03/16/17 07:03 Pneumococcal Polyvalent Vaccine (Pneumovax 23) 0.5 ml IM .ONCE ONE Stop: 03/16/17 13:57 Propofol (Diprivan 20 Ml) Confirm Administered Dose 200 mg .ROUTE .STK-MED ONE Stop: 03/16/17 07:03 Rocuronium [place] (Zemuron) Confirm Administered Dose 50 mg .ROUTE .STK-MED ONE Stop: 03/16/17 07:03 Sodium Chloride (Saline Flush) 10 ml FLUSH ASDIRECTED PRN PRN Reason: Keep Vein Open Stop: 03/16/17 18:00 - Exam Wound/Incisions: Drainage (Mostly serous) - Problem List Review Problem List Initiated/Reviewed/Updated: Yes - My Orders Last 24 Hours: Active Orders 24 hr Category Date Time Status Patient Status [ADT] Routine ADT 03/16/17 10:31 Active Ambulate [RC] TIDMEALS Care 03/16/17 10:31 Active Cooling Warming Measures [RC] ASDIRECTED Care 03/16/17 08:49 Active Head of Bed Elevation [RC] ASDIRECTED Care 03/16/17 10:33 Active Notify Provider [RC] ASDIRECTED Care 03/16/17 08:49 Active Oxygen Therapy [RC] ASDIRECTED Care 03/16/17 08:49 Active RT Incentive Spirometry [RC] ASDIRECTED Care 03/16/17 10:31 Active Up ad Nereyda [RC] QSHIFT Care 03/16/17 10:31 Active Vital Signs [RC] Q4HR Care 03/16/17 10:31 Active Wound Care [RC] DAILY Care 03/16/17 10:31 Active Clear Liquid Diet [DIET] Diet 03/16/17 Lunch Active Acetaminophen/oxyCODONE [Percocet 325-5 MG] Med 03/16/17 10:31 Active 1 tab PO Q4H PRN HYDROmorphone [Dilaudid] Med 03/16/17 10:31 Active 0.5 mg IVPUSH Q1H PRN Lactated Ringers [Ringers, Lactated] 1,000 ml Med 03/16/17 10:45 Active IV ASDIRECTED Ondansetron [Zofran] Med 03/16/17 10:31 Active 4 mg IVPUSH Q6H PRN cefOXitin [Mefoxin in Dextrose,Iso-Osm 2 GM/50 ML] 2 gm Med 03/16/17 16:00 Active Premix Bag 1 bag IV Q6H Abdominal Binder [OM.PC] Per Unit Routine Oth 03/16/17 10:33 Ordered Resuscitation Status Routine Resus Stat 03/16/17 10:31 Ordered Medication Orders Hydromorphone HCl (Dilaudid) 0.5 mg IVPUSH Q1H PRN PRN Reason: Pain (severe 7-10) Lactated Ringer's (Ringers, Lactated) 1,000 mls @ 125 mls/hr IV ASDIRECTED [facility] Last Admin: 03/17/17 03:20 Dose: 125 mls/hr Infusion: 03/17/17 03:20 Dose: 125 mls/hr Admin: 03/16/17 20:20 Dose: 125 mls/hr Infusion: 03/16/17 19:58 Dose: 125 mls/hr Admin: 03/16/17 11:58 Dose: 125 mls/hr Cefoxitin Sodium 2 gm/ Premix 50 mls @ 100 mls/hr IV Q6H [facility] Last Admin: 03/17/17 03:19 Dose: 100 mls/hr Infusion: 03/16/17 23:25 Dose: 100 mls/hr Admin: 03/16/17 22:55 Dose: 100 mls/hr Infusion: 03/16/17 15:54 Dose: 100 mls/hr Admin: 03/16/17 15:24 Dose: 100 mls/hr Ondansetron HCl (Zofran) 4 mg IVPUSH Q6H PRN PRN Reason: Nausea/Vomiting Oxycodone/Acetaminophen (Percocet 325-5 Mg) 1 tab PO Q4H PRN PRN Reason: Pain (moderate 4-6) Last Admin: 03/17/17 03:21 Dose: 1 tab Admin: 03/16/17 20:22 Dose: 1 tab Admin: 03/16/17 14:45 Dose: 1 tab - Assessment Assessment (Free Text/Narrative):: Doing well. - Plan Plan (Free Text/Narrative):: Dressing change today.
--- NOTE | 2017-03-17 10:07 | PCM48HPAN ---
Post Anesthesia Note - EVALUATION WITHIN 48HRS OF ANESTHETIC Vital Signs in Normal Range: Yes Patient Participated in Evaluation: Yes Respiratory Function Stable: Yes Airway Patent: Yes (O2 on- patient said everything was perfect) Cardiovascular Function Stable: Yes Hydration Status Stable: Yes Pain Control Satisfactory: Yes Nausea and Vomiting Control Satisfactory: Yes Mental Status Recovered: Yes
[2017-03-17] MEDS: HYDROmorphone 0.5 MG/0.5 ML Syringe IVPUSH PRN ×2 (17:10→23:24)
[2017-03-18] MEDS: HYDROmorphone 0.5 MG/0.5 ML Syringe IVPUSH PRN ×5 (00:31→22:59)
[2017-03-18] MEDS: Acetaminophen/oxyCODONE 325-5 MG Tab PO PRN ×5 (01:45→20:53)
[2017-03-18] MEDS: cefOXitin 2 GM in Premix Bag 1 BAG IV SCH ×4 (04:32→22:57)
[2017-03-18] MEDS: Lactated Ringers 1,000 ML IV SCH (05:36)
[2017-03-18] MEDS ORDERED: Lactated Ringers 1,000 ML IV SCH ×2 (10:35)
--- NOTE | 2017-03-18 10:55 | PCM.SURGPN ---
- General Info Date of Service: 03/18/17 Functional Status: Reports: Pain Controlled, Tolerating Diet, Ambulating, Urinating - Review of Systems Gastrointestinal: Reports: Flatus (Very small amounts) - Patient Data Vitals - Most Recent: Last Vital Signs Temp 36.9 C 03/18/17 07:47 Pulse 83 03/18/17 07:47 Resp 16 03/18/17 03:05 BP 105/69 03/18/17 07:47 Pulse Ox 94 L 03/18/17 07:47 Weight - Most Recent: 59.693 kg I&O - Last 24 Hours: Intake & Output 03/17/17 03/18/17 03/18/17 22:59 06:59 14:59 Intake Total 2750 1936 660 Balance 2750 1936 660 Med Orders - Current: Current Medications Hydromorphone HCl (Dilaudid) 0.5 mg IVPUSH Q1H PRN PRN Reason: Pain (severe 7-10) Last Admin: 03/18/17 09:30 Dose: 0.5 mg Lactated Ringer's (Ringers, Lactated) 1,000 mls @ 125 mls/hr IV ASDIRECTED [facility] Last Admin: 03/18/17 05:36 Dose: 125 mls/hr Cefoxitin Sodium 2 gm/ Premix 50 mls @ 100 mls/hr IV Q6H [facility] Last Admin: 03/18/17 09:32 Dose: 100 mls/hr Ondansetron HCl (Zofran) 4 mg IVPUSH Q6H PRN PRN Reason: Nausea/Vomiting Oxycodone/Acetaminophen (Percocet 325-5 Mg) 1 tab PO Q4H PRN PRN Reason: Pain (moderate 4-6) Last Admin: 03/18/17 09:31 Dose: 1 tab Discontinued Medications Albuterol (Proventil Hfa) Confirm Administered Dose 6.7 gm INH .STK-MED ONE Stop: 03/16/17 09:00 Dexamethasone (Dexamethasone) Confirm Administered Dose 20 mg .ROUTE .STK-MED ONE Stop: 03/16/17 09:00 Fentanyl (Sublimaze) Confirm Administered Dose 250 mcg .ROUTE .STK-MED ONE Stop: 03/16/17 07:04 Fentanyl (Sublimaze) 100 mcg IVPUSH Q5M PRN PRN Reason: Pain Stop: 03/16/17 18:00 Last Admin: 03/16/17 11:27 Dose: 100 mcg Glycopyrrolate (Robinul) Confirm Administered Dose 0.2 mg .ROUTE .STK-MED ONE Stop: 03/16/17 09:01 Hydromorphone HCl (Dilaudid) 0.5 mg IVPUSH Q15M PRN PRN Reason: severe pain Stop: 03/16/17 10:01 Last Admin: 03/16/17 11:50 Dose: 0.5 mg Hydromorphone HCl (Dilaudid) Confirm Administered Dose 1 mg .ROUTE .STK-MED ONE Stop: 03/16/17 09:11 Hydromorphone HCl (Dilaudid) Confirm Administered Dose 1 mg .ROUTE .STK-MED ONE Stop: 03/16/17 09:48 Lactated Ringer's (Ringers, Lactated) 1,000 mls @ 125 mls/hr IV ASDIRECTED [facility] Stop: 03/16/17 23:00 Last Admin: 03/16/17 08:10 Dose: 125 mls/hr Lidocaine HCl (Xylocaine-Mpf 1%) Confirm Administered Dose 4 mls @ as directed .ROUTE .STK-MED ONE Stop: 03/16/17 07:03 Cefoxitin Sodium (Mefoxin In Dextrose,Iso-Osm 2 Gm/50 Ml) Confirm Administered Dose 50 mls @ as directed .ROUTE .STK-MED ONE Stop: 03/16/17 08:01 Lactated Ringer's (Ringers, Lactated) Confirm Administered Dose 1,000 mls @ as directed .ROUTE .STK-MED ONE Stop: 03/16/17 09:19 Iodine (Iodine 2% Mild Tincture) Confirm Administered Dose 30 ml .ROUTE .STK- MED ONE Stop: 03/16/17 07:45 Last Admin: 03/16/17 09:00 Dose: 4 ml Ketorolac Tromethamine (Toradol) 15 mg IM Q6H PRN PRN Reason: Pain Stop: 03/17/17 04:46 Last Admin: 03/16/17 14:44 Dose: 15 mg Ketorolac Tromethamine (Toradol) 15 mg IVPUSH Q6H PRN PRN Reason: Pain Stop: 03/17/17 02:01 Last Admin: 03/16/17 20:24 Dose: 15 mg Ketorolac Tromethamine (Toradol) 15 mg IVPUSH ONETIME ONE Stop: 03/17/17 03:01 Last Admin: 03/17/17 03:18 Dose: 15 mg Lidocaine/Sodium Bicarbonate (Buffered Lidocaine 1% In Ns 8.4%) 0.25 ml .XX ONETIME PRN PRN Reason: Prior to IV Start Stop: 03/16/17 18:00 Last Admin: 03/16/17 08:10 Dose: 0.25 ml Midazolam HCl (Versed 1 Mg/Ml) Confirm Administered Dose 2 mg .ROUTE .STK-MED ONE Stop: 03/16/17 07:03 Neostigmine Methylsulfate (Neostigmine Methylsulfate) Confirm Administered Dose 10 mg .ROUTE .STK-MED ONE Stop: 03/16/17 09:01 Ondansetron HCl (Zofran) Confirm Administered Dose 4 mg .ROUTE .STK-MED ONE Stop: 03/16/17 07:03 Ondansetron HCl (Zofran) 4 mg IVPUSH ONETIME PRN PRN Reason: Nausea/Vomiting Stop: 03/16/17 08:50 Phenylephrine HCl (Agustín-Synephrine) Confirm Administered Dose 10 mg .ROUTE .STK- MED ONE Stop: 03/16/17 07:03 Pneumococcal Polyvalent Vaccine (Pneumovax 23) 0.5 ml IM .ONCE ONE Stop: 03/16/17 13:57 Propofol (Diprivan 20 Ml) Confirm Administered Dose 200 mg .ROUTE .STK-MED ONE Stop: 03/16/17 07:03 Rocuronium [place] (Zemuron) Confirm Administered Dose 50 mg .ROUTE .STK-MED ONE Stop: 03/16/17 07:03 Sodium Chloride (Saline Flush) 10 ml FLUSH ASDIRECTED PRN PRN Reason: Keep Vein Open Stop: 03/16/17 18:00 - Exam Wound/Incisions: Dressing Dry and Intact - Problem List Review Problem List Initiated/Reviewed/Updated: Yes - My Orders Last 24 Hours: Active Orders 24 hr Category Date Time Status Communication Order [RC] ROUTINE Care 03/18/17 10:53 Ordered Full Liquid Diet [DIET] Diet 03/18/17 Lunch Ordered Medication Orders Hydromorphone HCl (Dilaudid) 0.5 mg IVPUSH Q1H PRN PRN Reason: Pain (severe 7-10) Last Admin: 03/18/17 09:30 Dose: 0.5 mg Admin: 03/18/17 05:40 Dose: 0.5 mg Admin: 03/18/17 00:31 Dose: 0.5 mg Admin: 03/17/17 23:24 Dose: 0.5 mg Admin: 03/17/17 17:10 Dose: 0.5 mg Lactated Ringer's (Ringers, Lactated) 1,000 mls @ 125 mls/hr IV ASDIRECTED [facility] Last Admin: 03/18/17 05:36 Dose: 125 mls/hr Infusion: 03/18/17 05:17 Dose: 125 mls/hr Admin: 03/17/17 21:17 Dose: 125 mls/hr Infusion: 03/17/17 21:00 Dose: 125 mls/hr Admin: 03/17/17 13:00 Dose: 125 mls/hr Infusion: 03/17/17 11:20 Dose: 125 mls/hr Admin: 03/17/17 03:20 Dose: 125 mls/hr Infusion: 03/17/17 03:20 Dose: 125 mls/hr Admin: 03/16/17 20:20 Dose: 125 mls/hr Infusion: 03/16/17 19:58 Dose: 125 mls/hr Admin: 03/16/17 11:58 Dose: 125 mls/hr Cefoxitin Sodium 2 gm/ Premix 50 mls @ 100 mls/hr IV Q6H [facility] Last Admin: 03/18/17 09:32 Dose: 100 mls/hr Infusion: 03/18/17 05:02 Dose: 100 mls/hr Admin: 03/18/17 04:32 Dose: 100 mls/hr Infusion: 03/17/17 21:47 Dose: 100 mls/hr Admin: 03/17/17 21:17 Dose: 100 mls/hr Infusion: 03/17/17 17:41 Dose: 100 mls/hr Admin: 03/17/17 17:11 Dose: 100 mls/hr Infusion: 03/17/17 09:43 Dose: 100 mls/hr Admin: 03/17/17 09:13 Dose: 100 mls/hr Infusion: 03/17/17 03:49 Dose: 100 mls/hr Admin: 03/17/17 03:19 Dose: 100 mls/hr Infusion: 03/16/17 23:25 Dose: 100 mls/hr Admin: 03/16/17 22:55 Dose: 100 mls/hr Infusion: 03/16/17 15:54 Dose: 100 mls/hr Admin: 03/16/17 15:24 Dose: 100 mls/hr Ondansetron HCl (Zofran) 4 mg IVPUSH Q6H PRN PRN Reason: Nausea/Vomiting Oxycodone/Acetaminophen (Percocet 325-5 Mg) 1 tab PO Q4H PRN PRN Reason: Pain (moderate 4-6) Last Admin: 03/18/17 09:31 Dose: 1 tab Admin: 03/18/17 05:35 Dose: 1 tab Admin: 03/18/17 01:45 Dose: 1 tab Admin: 03/17/17 21:18 Dose: 1 tab Admin: 03/17/17 17:11 Dose: 1 tab Admin: 03/17/17 13:00 Dose: 1 tab Admin: 03/17/17 09:13 Dose: 1 tab Admin: 03/17/17 03:21 Dose: 1 tab Admin: 03/16/17 20:22 Dose: 1 tab Admin: 03/16/17 14:45 Dose: 1 tab - Assessment Assessment (Free Text/Narrative):: Doing well. Some difficulty with the dressing change because of discomfort. This should improve by using half the amount of Kerlix packing. - Plan Plan (Free Text/Narrative):: Advance diet. Continue dressing changes. Probable discharge tomorrow.
[2017-03-19] MEDS: cefOXitin 2 GM in Premix Bag 1 BAG IV SCH ×4 (04:28→22:20)
[2017-03-19] MEDS ORDERED: Acetaminophen 325 MG Tab PO PRN (04:49)
[2017-03-19] MEDS: Acetaminophen/oxyCODONE 325-5 MG Tab PO PRN ×4 (06:59→19:53)
--- NOTE | 2017-03-19 09:29 | CR ---
Abdomen: Supine and upright views of the abdomen were obtained. Comparison: Previous abdominal x-ray of 02/11/17. Scattered gas within small bowel and colon is noted. Gas is minimally prominent and likely represents a slight ileus. No free air is seen. Bony structures are unremarkable. Skin charles are present. Impression: 1. Slightly prominent gas within colon and small bowel most likely representing ileus. 2. Other incidental findings. Diagnostic code #3
[2017-03-19] MEDS ORDERED: Sodium Chloride 0.9% 10 ML Syringe FLUSH PRN (11:46)
--- NOTE | 2017-03-19 11:48 | PCM.SURGPN ---
- General Info Date of Service: 03/19/17 Functional Status: Reports: Pain Controlled, Tolerating Diet, Ambulating, Urinating - Review of Systems Gastrointestinal: Reports: Abdominal Pain (At incision site), Flatus - Patient Data Vitals - Most Recent: Last Vital Signs Temp 36.4 C 03/19/17 07:31 Pulse 70 03/19/17 07:31 Resp 16 03/19/17 07:31 BP 113/79 03/19/17 07:31 Pulse Ox 94 L 03/19/17 07:31 Weight - Most Recent: 57.516 kg I&O - Last 24 Hours: Intake & Output 03/18/17 03/19/17 03/19/17 22:59 06:59 14:59 Intake Total 1778 1030 Output Total 475 Balance 1778 555 Lab Results Last 24 Hrs: Laboratory Results - last 24 hr 03/19/17 Range/Units 05:31 WBC 9.28 H (4.23-9.07) K/mm3 RBC 3.57 L (4.63-6.08) M/mm3 Hgb 10.7 L (13.7-17.5) gm/L Hct 31.1 L (40.1-51.0) % MCV 87.1 (79.0-92.2) fl MCH 30.0 (25.7-32.2) pg MCHC 34.4 (32.2-35.5) g/dl RDW Std Deviation 38.3 (35.1-43.9) fL Plt Count 177 (163-337) K/mm3 MPV 10.4 (9.4-12.3) fl Neut % (Auto) 71.9 H (34.0-67.9) % Lymph % (Auto) 18.4 L (21.8-53.1) % [place] % (Auto) 7.1 (5.3-12.2) % Eos % (Auto) 2.3 (0.8-7.0) Baso % (Auto) 0.2 (0.1-1.2) % Neut # (Auto) 6.67 H (1.78-5.38) K/mm3 Lymph # (Auto) 1.71 (1.32-3.57) K/mm3 [place] # (Auto) 0.66 (0.30-0.82) K/mm3 Eos # (Auto) 0.21 (0.04-0.54) K/mm3 Baso # (Auto) 0.02 (0.01-0.08) K/mm3 Med Orders - Current: Current Medications Acetaminophen (Tylenol) 650 mg PO Q4H PRN PRN Reason: Fever Last Admin: 03/19/17 05:02 Dose: 650 mg Hydromorphone HCl (Dilaudid) 0.5 mg IVPUSH Q1H PRN PRN Reason: Pain (severe 7-10) Last Admin: 03/18/17 22:59 Dose: 0.5 mg Cefoxitin Sodium 2 gm/ Premix 50 mls @ 100 mls/hr IV Q6H [facility] Last Admin: 03/19/17 09:29 Dose: 100 mls/hr Lactated Ringer's (Ringers, Lactated) 1,000 mls @ 40 mls/hr IV ASDIRECTED [facility] Last Admin: 03/18/17 20:57 Dose: 40 mls/hr Ondansetron HCl (Zofran) 4 mg IVPUSH Q6H PRN PRN Reason: Nausea/Vomiting Oxycodone/Acetaminophen (Percocet 325-5 Mg) 1 tab PO Q4H PRN PRN Reason: Pain (moderate 4-6) Last Admin: 03/19/17 11:26 Dose: 1 tab Sodium Chloride (Saline Flush) 10 ml FLUSH ASDIRECTED PRN PRN Reason: Keep Vein Open Discontinued Medications Albuterol (Proventil Hfa) Confirm Administered Dose 6.7 gm INH .STK-MED ONE Stop: 03/16/17 09:00 Dexamethasone (Dexamethasone) Confirm Administered Dose 20 mg .ROUTE .STK-MED ONE Stop: 03/16/17 09:00 Fentanyl (Sublimaze) Confirm Administered Dose 250 mcg .ROUTE .STK-MED ONE Stop: 03/16/17 07:04 Fentanyl (Sublimaze) 100 mcg IVPUSH Q5M PRN PRN Reason: Pain Stop: 03/16/17 18:00 Last Admin: 03/16/17 11:27 Dose: 100 mcg Glycopyrrolate (Robinul) Confirm Administered Dose 0.2 mg .ROUTE .STK-MED ONE Stop: 03/16/17 09:01 Hydromorphone HCl (Dilaudid) 0.5 mg IVPUSH Q15M PRN PRN Reason: severe pain Stop: 03/16/17 10:01 Last Admin: 03/16/17 11:50 Dose: 0.5 mg Hydromorphone HCl (Dilaudid) Confirm Administered Dose 1 mg .ROUTE .STK-MED ONE Stop: 03/16/17 09:11 Hydromorphone HCl (Dilaudid) Confirm Administered Dose 1 mg .ROUTE .ST-MED ONE Stop: 03/16/17 09:48 Lactated Ringer's (Ringers, Lactated) 1,000 mls @ 125 mls/hr IV ASDIRECTED [facility] Stop: 03/16/17 23:00 Last Admin: 03/16/17 08:10 Dose: 125 mls/hr Lidocaine HCl (Xylocaine-Mpf 1%) Confirm Administered Dose 4 mls @ as directed .ROUTE .ST-MED ONE Stop: 03/16/17 07:03 Cefoxitin Sodium (Mefoxin In Dextrose,Iso-Osm 2 Gm/50 Ml) Confirm Administered Dose 50 mls @ as directed .ROUTE .ST-MED ONE Stop: 03/16/17 08:01 Lactated Ringer's (Ringers, Lactated) Confirm Administered Dose 1,000 mls @ as directed .ROUTE .[facility]-MED ONE Stop: 03/16/17 09:19 Lactated Ringer's (Ringers, Lactated) 1,000 mls @ 40 mls/hr IV ASDIRECTED [facility] Last Admin: 03/18/17 05:36 Dose: 125 mls/hr Lactated Ringer's (Ringers, Lactated) 1,000 mls @ 40 mls/hr IV ASDIRECTED [facility] Iodine (Iodine 2% Mild Tincture) Confirm Administered Dose 30 ml .ROUTE .STK- MED ONE Stop: 03/16/17 07:45 Last Admin: 03/16/17 09:00 Dose: 4 ml Ketorolac Tromethamine (Toradol) 15 mg IM Q6H PRN PRN Reason: Pain Stop: 03/17/17 04:46 Last Admin: 03/16/17 14:44 Dose: 15 mg Ketorolac Tromethamine (Toradol) 15 mg IVPUSH Q6H PRN PRN Reason: Pain Stop: 03/17/17 02:01 Last Admin: 03/16/17 20:24 Dose: 15 mg Ketorolac Tromethamine (Toradol) 15 mg IVPUSH ONETIME ONE Stop: 03/17/17 03:01 Last Admin: 03/17/17 03:18 Dose: 15 mg Lidocaine/Sodium Bicarbonate (Buffered Lidocaine 1% In Ns 8.4%) 0.25 ml .XX ONETIME PRN PRN Reason: Prior to IV Start Stop: 03/16/17 18:00 Last Admin: 03/16/17 08:10 Dose: 0.25 ml Midazolam HCl (Versed 1 Mg/Ml) Confirm Administered Dose 2 mg .ROUTE .STK-MED ONE Stop: 03/16/17 07:03 Neostigmine Methylsulfate (Neostigmine Methylsulfate) Confirm Administered Dose 10 mg .ROUTE .STK-MED ONE Stop: 03/16/17 09:01 Ondansetron HCl (Zofran) Confirm Administered Dose 4 mg .ROUTE .STK-MED ONE Stop: 03/16/17 07:03 Ondansetron HCl (Zofran) 4 mg IVPUSH ONETIME PRN PRN Reason: Nausea/Vomiting Stop: 03/16/17 08:50 Phenylephrine HCl (Agustín-Synephrine) Confirm Administered Dose 10 mg .ROUTE .STK- MED ONE Stop: 03/16/17 07:03 Pneumococcal Polyvalent Vaccine (Pneumovax 23) 0.5 ml IM .ONCE ONE Stop: 03/16/17 13:57 Propofol (Diprivan 20 Ml) Confirm Administered Dose 200 mg .ROUTE .STK-MED ONE Stop: 03/16/17 07:03 Rocuronium [place] (Zemuron) Confirm Administered Dose 50 mg .ROUTE .STK-MED ONE Stop: 03/16/17 07:03 Sodium Chloride (Saline Flush) 10 ml FLUSH ASDIRECTED PRN PRN Reason: Keep Vein Open Stop: 03/16/17 18:00 - Exam Wound/Incisions: Dressing Dry and Intact GI/Abdominal Exam: Soft - Problem List Review Problem List Initiated/Reviewed/Updated: Yes - My Orders Last 24 Hours: Active Orders 24 hr Category Date Time Status Communication Order [RC] ROUTINE Care 03/18/17 10:53 Active Full Liquid Diet [DIET] Diet 03/18/17 Lunch Active Regular Diet [DIET] Diet 03/19/17 Dinner Ordered Acetaminophen [Tylenol] Med 03/19/17 04:49 Active 650 mg PO Q4H PRN Sodium Chloride 0.9% [Saline Flush] Med 03/19/17 11:46 Ordered 10 ml FLUSH ASDIRECTED PRN Convert IV to Saline Lock [OM.PC] Routine Oth 03/19/17 11:46 Ordered Medication Orders Acetaminophen (Tylenol) 650 mg PO Q4H PRN PRN Reason: Fever Last Admin: 03/19/17 05:02 Dose: 650 mg Hydromorphone HCl (Dilaudid) 0.5 mg IVPUSH Q1H PRN PRN Reason: Pain (severe 7-10) Last Admin: 03/18/17 22:59 Dose: 0.5 mg Admin: 03/18/17 14:52 Dose: 0.5 mg Admin: 03/18/17 09:30 Dose: 0.5 mg Admin: 03/18/17 05:40 Dose: 0.5 mg Admin: 03/18/17 00:31 Dose: 0.5 mg Admin: 03/17/17 23:24 Dose: 0.5 mg Admin: 03/17/17 17:10 Dose: 0.5 mg Cefoxitin Sodium 2 gm/ Premix 50 mls @ 100 mls/hr IV Q6H BRIAN Last Admin: 03/19/17 09:29 Dose: 100 mls/hr Infusion: 03/19/17 04:58 Dose: 100 mls/hr Admin: 03/19/17 04:28 Dose: 100 mls/hr Infusion: 03/18/17 23:27 Dose: 100 mls/hr Admin: 03/18/17 22:57 Dose: 100 mls/hr Infusion: 03/18/17 16:38 Dose: 100 mls/hr Admin: 03/18/17 16:08 Dose: 100 mls/hr Infusion: 03/18/17 10:02 Dose: 100 mls/hr Admin: 03/18/17 09:32 Dose: 100 mls/hr Infusion: 03/18/17 05:02 Dose: 100 mls/hr Admin: 03/18/17 04:32 Dose: 100 mls/hr Infusion: 03/17/17 21:47 Dose: 100 mls/hr Admin: 08/15/17 21:17 Dose: 100 mls/hr Infusion: 03/17/17 17:41 Dose: 100 mls/hr Admin: 03/17/17 17:11 Dose: 100 mls/hr Infusion: 03/17/17 09:43 Dose: 100 mls/hr Admin: 03/17/17 09:13 Dose: 100 mls/hr Infusion: 03/17/17 03:49 Dose: 100 mls/hr Admin: 03/17/17 03:19 Dose: 100 mls/hr Infusion: 03/16/17 23:25 Dose: 100 mls/hr Admin: 03/16/17 22:55 Dose: 100 mls/hr Infusion: 03/16/17 15:54 Dose: 100 mls/hr Admin: 03/16/17 15:24 Dose: 100 mls/hr Lactated Ringer's (Ringers, Lactated) 1,000 mls @ 40 mls/hr IV ASDIRECTED BRIAN Last Admin: 03/18/17 20:57 Dose: 40 mls/hr Ondansetron HCl (Zofran) 4 mg IVPUSH Q6H PRN PRN Reason: Nausea/Vomiting Oxycodone/Acetaminophen (Percocet 325-5 Mg) 1 tab PO Q4H PRN PRN Reason: Pain (moderate 4-6) Last Admin: 03/19/17 11:26 Dose: 1 tab Admin: 03/19/17 06:59 Dose: 1 tab Admin: 03/18/17 20:53 Dose: 1 tab Admin: 03/18/17 14:50 Dose: 1 tab Admin: 03/18/17 09:31 Dose: 1 tab Admin: 03/18/17 05:35 Dose: 1 tab Admin: 03/18/17 01:45 Dose: 1 tab Admin: 03/17/17 21:18 Dose: 1 tab Admin: 03/17/17 17:11 Dose: 1 tab Admin: 03/17/17 13:00 Dose: 1 tab Admin: 03/17/17 09:13 Dose: 1 tab Admin: 03/17/17 03:21 Dose: 1 tab Admin: 03/16/17 20:22 Dose: 1 tab Admin: 03/16/17 14:45 Dose: 1 tab Sodium Chloride (Saline Flush) 10 ml FLUSH ASDIRECTED PRN PRN Reason: Keep Vein Open - Assessment Assessment (Free Text/Narrative):: Patient had a temperature elevation yesterday which responded to Tylenol. His white blood cell count this morning is normal. His plain films show no free air but shows a large amount of gas within the colon as expected. He is having some slight difficulty with the dressing change. The drainage is significantly less. - Plan Plan (Free Text/Narrative):: We'll continue IV antibiotics. He will ambulate today. I will advance his diet. If doing well probable discharge tomorrow.
[2017-03-19] MEDS ORDERED: Bisacodyl 10 MG Supp RECTAL ONE (15:45)
[2017-03-19] MEDS: HYDROmorphone 0.5 MG/0.5 ML Syringe IVPUSH PRN (22:05)
[2017-03-20] MEDS: cefOXitin 2 GM in Premix Bag 1 BAG IV SCH ×2 (03:45→09:44)
[2017-03-20] MEDS: Acetaminophen/oxyCODONE 325-5 MG Tab PO PRN ×2 (03:58→07:43)
--- NOTE | 2017-03-20 11:01 | PCM.SURGPN ---
- General Info Date of Service: 03/20/17 Functional Status: Reports: Pain Controlled, Tolerating Diet, Ambulating, Urinating - Review of Systems Gastrointestinal: Reports: Flatus, Other (First bowel movement) - Patient Data Vitals - Most Recent: Last Vital Signs Temp 36.7 C 03/20/17 07:45 Pulse 71 03/20/17 07:45 Resp 18 03/20/17 07:45 BP 104/78 03/20/17 07:45 Pulse Ox 94 L 03/20/17 07:45 Weight - Most Recent: 57.017 kg I&O - Last 24 Hours: Intake & Output 03/19/17 03/20/17 03/20/17 22:59 06:59 14:59 Intake Total 1334 800 180 Balance 1334 800 180 Med Orders - Current: Current Medications Acetaminophen (Tylenol) 650 mg PO Q4H PRN PRN Reason: Fever Last Admin: 03/19/17 05:02 Dose: 650 mg Hydromorphone HCl (Dilaudid) 0.5 mg IVPUSH Q1H PRN PRN Reason: Pain (severe 7-10) Last Admin: 03/19/17 22:05 Dose: 0.5 mg Cefoxitin Sodium 2 gm/ Premix 50 mls @ 100 mls/hr IV Q6H BRIAN Last Admin: 03/20/17 09:44 Dose: 100 mls/hr Ondansetron HCl (Zofran) 4 mg IVPUSH Q6H PRN PRN Reason: Nausea/Vomiting Oxycodone/Acetaminophen (Percocet 325-5 Mg) 1 tab PO Q4H PRN PRN Reason: Pain (moderate 4-6) Last Admin: 03/20/17 07:43 Dose: 1 tab Sodium Chloride (Saline Flush) 10 ml FLUSH ASDIRECTED PRN PRN Reason: Keep Vein Open Discontinued Medications Albuterol (Proventil Hfa) Confirm Administered Dose 6.7 gm INH .STK-MED ONE Stop: 03/16/17 09:00 Bisacodyl (Dulcolax) 10 mg RECTAL ONETIME ONE Stop: 03/19/17 15:46 Last Admin: 03/19/17 16:18 Dose: 10 mg Dexamethasone (Dexamethasone) Confirm Administered Dose 20 mg .ROUTE .STK-MED ONE Stop: 03/16/17 09:00 Fentanyl (Sublimaze) Confirm Administered Dose 250 mcg .ROUTE .[facility] ONE Stop: 03/16/17 07:04 Fentanyl (Sublimaze) 100 mcg IVPUSH Q5M PRN PRN Reason: Pain Stop: 03/16/17 18:00 Last Admin: 03/16/17 11:27 Dose: 100 mcg Glycopyrrolate (Robinul) Confirm Administered Dose 0.2 mg .ROUTE .[facility] ONE Stop: 03/16/17 09:01 Hydromorphone HCl (Dilaudid) 0.5 mg IVPUSH Q15M PRN PRN Reason: severe pain Stop: 03/16/17 10:01 Last Admin: 03/16/17 11:50 Dose: 0.5 mg Hydromorphone HCl (Dilaudid) Confirm Administered Dose 1 mg .ROUTE .[facility]-MED ONE Stop: 03/16/17 09:11 Hydromorphone HCl (Dilaudid) Confirm Administered Dose 1 mg .ROUTE .[facility] ONE Stop: 03/16/17 09:48 Lactated Ringer's (Ringers, Lactated) 1,000 mls @ 125 mls/hr IV ASDIRECTED [facility] Stop: 03/16/17 23:00 Last Admin: 03/16/17 08:10 Dose: 125 mls/hr Lidocaine HCl (Xylocaine-Mpf 1%) Confirm Administered Dose 4 mls @ as directed .ROUTE .[facility]-MED ONE Stop: 03/16/17 07:03 Cefoxitin Sodium (Mefoxin In Dextrose,Iso-Osm 2 Gm/50 Ml) Confirm Administered Dose 50 mls @ as directed .ROUTE .[facility] ONE Stop: 03/16/17 08:01 Lactated Ringer's (Ringers, Lactated) Confirm Administered Dose 1,000 mls @ as directed .ROUTE .[facility]-MED ONE Stop: 03/16/17 09:19 Lactated Ringer's (Ringers, Lactated) 1,000 mls @ 40 mls/hr IV ASDIRECTED [facility] Last Admin: 03/18/17 05:36 Dose: 125 mls/hr Lactated Ringer's (Ringers, Lactated) 1,000 mls @ 40 mls/hr IV ASDIRECTED [facility] Lactated Ringer's (Ringers, Lactated) 1,000 mls @ 40 mls/hr IV ASDIRECTED [facility] Last Admin: 03/18/17 20:57 Dose: 40 mls/hr Iodine (Iodine 2% Mild Tincture) Confirm Administered Dose 30 ml .ROUTE .STK- MED ONE Stop: 03/16/17 07:45 Last Admin: 03/16/17 09:00 Dose: 4 ml Ketorolac Tromethamine (Toradol) 15 mg IM Q6H PRN PRN Reason: Pain Stop: 03/17/17 04:46 Last Admin: 03/16/17 14:44 Dose: 15 mg Ketorolac Tromethamine (Toradol) 15 mg IVPUSH Q6H PRN PRN Reason: Pain Stop: 03/17/17 02:01 Last Admin: 03/16/17 20:24 Dose: 15 mg Ketorolac Tromethamine (Toradol) 15 mg IVPUSH ONETIME ONE Stop: 03/17/17 03:01 Last Admin: 03/17/17 03:18 Dose: 15 mg Lidocaine/Sodium Bicarbonate (Buffered Lidocaine 1% In Ns 8.4%) 0.25 ml .XX ONETIME PRN PRN Reason: Prior to IV Start Stop: 03/16/17 18:00 Last Admin: 03/16/17 08:10 Dose: 0.25 ml Midazolam HCl (Versed 1 Mg/Ml) Confirm Administered Dose 2 mg .ROUTE .STK-MED ONE Stop: 03/16/17 07:03 Neostigmine Methylsulfate (Neostigmine Methylsulfate) Confirm Administered Dose 10 mg .ROUTE .STK-MED ONE Stop: 03/16/17 09:01 Ondansetron HCl (Zofran) Confirm Administered Dose 4 mg .ROUTE .STK-MED ONE Stop: 03/16/17 07:03 Ondansetron HCl (Zofran) 4 mg IVPUSH ONETIME PRN PRN Reason: Nausea/Vomiting Stop: 03/16/17 08:50 Phenylephrine HCl (Agustín-Synephrine) Confirm Administered Dose 10 mg .ROUTE .STK- MED ONE Stop: 03/16/17 07:03 Pneumococcal Polyvalent Vaccine (Pneumovax 23) 0.5 ml IM .ONCE ONE Stop: 03/16/17 13:57 Propofol (Diprivan 20 Ml) Confirm Administered Dose 200 mg .ROUTE .STK-MED ONE Stop: 03/16/17 07:03 Rocuronium [place] (Zemuron) Confirm Administered Dose 50 mg .ROUTE .STK-MED ONE Stop: 03/16/17 07:03 Sodium Chloride (Saline Flush) 10 ml FLUSH ASDIRECTED PRN PRN Reason: Keep Vein Open Stop: 03/16/17 18:00 - Exam Wound/Incisions: Dressing Dry and Intact GI/Abdominal Exam: Soft, Non-Tender - Problem List & Annotations (1) H/O ileostomy SNOMED Code(s): 084588478, 533983910 Code(s): Z98.890 - OTHER SPECIFIED POSTPROCEDURAL STATES Status: Resolved Current Visit: Yes - Problem List Review Problem List Initiated/Reviewed/Updated: Yes - My Orders Last 24 Hours: Active Orders 24 hr Category Date Time Status Ready for Discharge [RC] PER UNIT ROUTINE Care 03/20/17 11:00 Ordered Regular Diet [DIET] Diet 03/19/17 Dinner Active Sodium Chloride 0.9% [Saline Flush] Med 03/19/17 11:46 Active 10 ml FLUSH ASDIRECTED PRN Convert IV to Saline Lock [OM.PC] Routine Oth 03/19/17 11:46 Ordered Medication Orders Acetaminophen (Tylenol) 650 mg PO Q4H PRN PRN Reason: Fever Last Admin: 03/19/17 05:02 Dose: 650 mg Hydromorphone HCl (Dilaudid) 0.5 mg IVPUSH Q1H PRN PRN Reason: Pain (severe 7-10) Last Admin: 03/19/17 22:05 Dose: 0.5 mg Admin: 03/18/17 22:59 Dose: 0.5 mg Admin: 03/18/17 14:52 Dose: 0.5 mg Admin: 03/18/17 09:30 Dose: 0.5 mg Admin: 03/18/17 05:40 Dose: 0.5 mg Admin: 03/18/17 00:31 Dose: 0.5 mg Admin: 03/17/17 23:24 Dose: 0.5 mg Admin: 03/17/17 17:10 Dose: 0.5 mg Cefoxitin Sodium 2 gm/ Premix 50 mls @ 100 mls/hr IV Q6H BRIAN Last Admin: 03/20/17 09:44 Dose: 100 mls/hr Infusion: 03/20/17 04:15 Dose: 100 mls/hr Admin: 03/20/17 03:45 Dose: 100 mls/hr Infusion: 03/19/17 22:50 Dose: 100 mls/hr Admin: 03/19/17 22:20 Dose: 100 mls/hr Infusion: 03/19/17 16:04 Dose: 100 mls/hr Admin: 03/19/17 15:34 Dose: 100 mls/hr Infusion: 03/19/17 09:59 Dose: 100 mls/hr Admin: 03/19/17 09:29 Dose: 100 mls/hr Infusion: 03/19/17 04:58 Dose: 100 mls/hr Admin: 03/19/17 04:28 Dose: 100 mls/hr Infusion: 03/18/17 23:27 Dose: 100 mls/hr Admin: 03/18/17 22:57 Dose: 100 mls/hr Infusion: 03/18/17 16:38 Dose: 100 mls/hr Admin: 03/18/17 16:08 Dose: 100 mls/hr Infusion: 03/18/17 10:02 Dose: 100 mls/hr Admin: 03/18/17 09:32 Dose: 100 mls/hr Infusion: 03/18/17 05:02 Dose: 100 mls/hr Admin: 03/18/17 04:32 Dose: 100 mls/hr Infusion: 03/17/17 21:47 Dose: 100 mls/hr Admin: 03/17/17 21:17 Dose: 100 mls/hr Infusion: 03/17/17 17:41 Dose: 100 mls/hr Admin: 03/17/17 17:11 Dose: 100 mls/hr Infusion: 03/17/17 09:43 Dose: 100 mls/hr Admin: 03/17/17 09:13 Dose: 100 mls/hr Infusion: 03/17/17 03:49 Dose: 100 mls/hr Admin: 03/17/17 03:19 Dose: 100 mls/hr Infusion: 03/16/17 23:25 Dose: 100 mls/hr Admin: 03/16/17 22:55 Dose: 100 mls/hr Infusion: 03/16/17 15:54 Dose: 100 mls/hr Admin: 03/16/17 15:24 Dose: 100 mls/hr Ondansetron HCl (Zofran) 4 mg IVPUSH Q6H PRN PRN Reason: Nausea/Vomiting Oxycodone/Acetaminophen (Percocet 325-5 Mg) 1 tab PO Q4H PRN PRN Reason: Pain (moderate 4-6) Last Admin: 03/20/17 07:43 Dose: 1 tab Admin: 03/20/17 03:58 Dose: 1 tab Admin: 03/19/17 19:53 Dose: 1 tab Admin: 03/19/17 15:32 Dose: 1 tab Admin: 03/19/17 11:26 Dose: 1 tab Admin: 03/19/17 06:59 Dose: 1 tab Admin: 03/18/17 20:53 Dose: 1 tab Admin: 03/18/17 14:50 Dose: 1 tab Admin: 03/18/17 09:31 Dose: 1 tab Admin: 03/18/17 05:35 Dose: 1 tab Admin: 03/18/17 01:45 Dose: 1 tab Admin: 03/17/17 21:18 Dose: 1 tab Admin: 03/17/17 17:11 Dose: 1 tab Admin: 03/17/17 13:00 Dose: 1 tab Admin: 03/17/17 09:13 Dose: 1 tab Admin: 03/17/17 03:21 Dose: 1 tab Admin: 03/16/17 20:22 Dose: 1 tab Admin: 03/16/17 14:45 Dose: 1 tab Sodium Chloride (Saline Flush) 10 ml FLUSH ASDIRECTED PRN PRN Reason: Keep Vein Open - Assessment Assessment (Free Text/Narrative):: Ready for discharge - Plan Plan (Free Text/Narrative):: Discharge today
--- NOTE | 2017-03-20 11:02 | PCM.DCSUM1 ---
Discharge Summary - Hospital Course Free Text/Narrative:: Uncomplicated postoperative course. Discharged immediately after bowel function returned. - Discharge Data Discharge Date: 03/20/17 Discharge Disposition: Home, Self-Care 01 Condition: Good - Discharge Diagnosis/Problem(s) (1) H/O ileostomy SNOMED Code(s): 606383098, [id number] ICD Code: Z98.890 - OTHER SPECIFIED POSTPROCEDURAL STATES Status: Resolved Current Visit: Yes - Patient Summary/Data Operative Procedure(s) Performed: Takedown loop ileostomy Complications: None Consults: None Planned Operative Procedure(s) after DC: None Hospital Course: See above. - Patient Instructions Diet: Usual Diet as Tolerated Activity: As Tolerated Driving: May Drive Today Showering/Bathing: May Shower Wound/Incision Care: Keep Operative Site/Wound Site Clean and Dry, Change Dressing Daily (Per instructions) Notify Provider of: Fever - Discharge Plan Home Medications: Home Meds Acetaminophen with Codeine [Tylenol with Codeine #3 Tablet] 1 - 2 each PO Q8HR PRN 03/16/17 [History] Patient Handouts: Smoking Cessation, Tips for Success, [id number], Loop Ileostomy Reversal, Care After, Hand Washing, [id number], Incision and Drainage, How to Change Your Dressing, [id number], Infection Control in the Home, Ileostomy Surgery Referrals: Madan Orozco MD [Physician] - 03/26/17 (Routine postoperative check) - Discharge Summary/Plan Comment DC Time >30 min.: No Discharge Summary/Plan Comment: Discharge instructions given to the patient as well as wound care instructions. I asked him to call my office if there are any concerns between now and the clinic visit. - Patient Data Vitals - Most Recent: Last Vital Signs Temp 36.7 C 03/20/17 07:45 Pulse 71 03/20/17 07:45 Resp 18 03/20/17 07:45 BP 104/78 03/20/17 07:45 Pulse Ox 94 L 03/20/17 07:45 Weight - Most Recent: 57.017 kg I&O - Last 24 hours: Intake & Output 03/19/17 03/20/17 03/20/17 22:59 06:59 14:59 Intake Total 1334 800 180 Balance 1334 800 180 Med Orders - Current: Current Medications Acetaminophen (Tylenol) 650 mg PO Q4H PRN PRN Reason: Fever Last Admin: 03/19/17 05:02 Dose: 650 mg Hydromorphone HCl (Dilaudid) 0.5 mg IVPUSH Q1H PRN PRN Reason: Pain (severe 7-10) Last Admin: 03/19/17 22:05 Dose: 0.5 mg Cefoxitin Sodium 2 gm/ Premix 50 mls @ 100 mls/hr IV Q6H BRIAN Last Admin: 03/20/17 09:44 Dose: 100 mls/hr Ondansetron HCl (Zofran) 4 mg IVPUSH Q6H PRN PRN Reason: Nausea/Vomiting Oxycodone/Acetaminophen (Percocet 325-5 Mg) 1 tab PO Q4H PRN PRN Reason: Pain (moderate 4-6) Last Admin: 03/20/17 07:43 Dose: 1 tab Sodium Chloride (Saline Flush) 10 ml FLUSH ASDIRECTED PRN PRN Reason: Keep Vein Open Discontinued Medications Albuterol (Proventil Hfa) Confirm Administered Dose 6.7 gm INH .STK-MED ONE Stop: 03/16/17 09:00 Bisacodyl (Dulcolax) 10 mg RECTAL ONETIME ONE Stop: 03/19/17 15:46 Last Admin: 03/19/17 16:18 Dose: 10 mg Dexamethasone (Dexamethasone) Confirm Administered Dose 20 mg .ROUTE .STK-MED ONE Stop: 03/16/17 09:00 Fentanyl (Sublimaze) Confirm Administered Dose 250 mcg .ROUTE .STK-MED ONE Stop: 03/16/17 07:04 Fentanyl (Sublimaze) 100 mcg IVPUSH Q5M PRN PRN Reason: Pain Stop: 03/16/17 18:00 Last Admin: 03/16/17 11:27 Dose: 100 mcg Glycopyrrolate (Robinul) Confirm Administered Dose 0.2 mg .ROUTE .STK-MED ONE Stop: 03/16/17 09:01 Hydromorphone HCl (Dilaudid) 0.5 mg IVPUSH Q15M PRN PRN Reason: severe pain Stop: 03/16/17 10:01 Last Admin: 03/16/17 11:50 Dose: 0.5 mg Hydromorphone HCl (Dilaudid) Confirm Administered Dose 1 mg .ROUTE .[facility] ONE Stop: 03/16/17 09:11 Hydromorphone HCl (Dilaudid) Confirm Administered Dose 1 mg .ROUTE .[facility] ONE Stop: 03/16/17 09:48 Lactated Ringer's (Ringers, Lactated) 1,000 mls @ 125 mls/hr IV ASDIRECTED [facility] Stop: 03/16/17 23:00 Last Admin: 03/16/17 08:10 Dose: 125 mls/hr Lidocaine HCl (Xylocaine-Mpf 1%) Confirm Administered Dose 4 mls @ as directed .ROUTE .[facility] ONE Stop: 03/16/17 07:03 Cefoxitin Sodium (Mefoxin In Dextrose,Iso-Osm 2 Gm/50 Ml) Confirm Administered Dose 50 mls @ as directed .ROUTE .[facility] ONE Stop: 03/16/17 08:01 Lactated Ringer's (Ringers, Lactated) Confirm Administered Dose 1,000 mls @ as directed .ROUTE .[facility] ONE Stop: 03/16/17 09:19 Lactated Ringer's (Ringers, Lactated) 1,000 mls @ 40 mls/hr IV ASDIRECTED [facility] Last Admin: 03/18/17 05:36 Dose: 125 mls/hr Lactated Ringer's (Ringers, Lactated) 1,000 mls @ 40 mls/hr IV ASDIRECTED [facility] Lactated Ringer's (Ringers, Lactated) 1,000 mls @ 40 mls/hr IV ASDIRECTED [facility] Last Admin: 03/18/17 20:57 Dose: 40 mls/hr Iodine (Iodine 2% Mild Tincture) Confirm Administered Dose 30 ml .ROUTE .[facility] ONE Stop: 03/16/17 07:45 Last Admin: 03/16/17 09:00 Dose: 4 ml Ketorolac Tromethamine (Toradol) 15 mg IM Q6H PRN PRN Reason: Pain Stop: 03/17/17 04:46 Last Admin: 03/16/17 14:44 Dose: 15 mg Ketorolac Tromethamine (Toradol) 15 mg IVPUSH Q6H PRN PRN Reason: Pain Stop: 03/17/17 02:01 Last Admin: 03/16/17 20:24 Dose: 15 mg Ketorolac Tromethamine (Toradol) 15 mg IVPUSH ONETIME ONE Stop: 03/17/17 03:01 Last Admin: 03/17/17 03:18 Dose: 15 mg Lidocaine/Sodium Bicarbonate (Buffered Lidocaine 1% In Ns 8.4%) 0.25 ml .XX ONETIME PRN PRN Reason: Prior to IV Start Stop: 03/16/17 18:00 Last Admin: 03/16/17 08:10 Dose: 0.25 ml Midazolam HCl (Versed 1 Mg/Ml) Confirm Administered Dose 2 mg .ROUTE .STK-MED ONE Stop: 03/16/17 07:03 Neostigmine Methylsulfate (Neostigmine Methylsulfate) Confirm Administered Dose 10 mg .ROUTE .STK-MED ONE Stop: 03/16/17 09:01 Ondansetron HCl (Zofran) Confirm Administered Dose 4 mg .ROUTE .STK-MED ONE Stop: 03/16/17 07:03 Ondansetron HCl (Zofran) 4 mg IVPUSH ONETIME PRN PRN Reason: Nausea/Vomiting Stop: 03/16/17 08:50 Phenylephrine HCl (Agustín-Synephrine) Confirm Administered Dose 10 mg .ROUTE .STK- MED ONE Stop: 03/16/17 07:03 Pneumococcal Polyvalent Vaccine (Pneumovax 23) 0.5 ml IM .ONCE ONE Stop: 03/16/17 13:57 Propofol (Diprivan 20 Ml) Confirm Administered Dose 200 mg .ROUTE .STK-MED ONE Stop: 03/16/17 07:03 Rocuronium [place] (Zemuron) Confirm Administered Dose 50 mg .ROUTE .STK-MED ONE Stop: 03/16/17 07:03 Sodium Chloride (Saline Flush) 10 ml FLUSH ASDIRECTED PRN PRN Reason: Keep Vein Open Stop: 03/16/17 18:00 *Q Meaningful Use (DIS) - VTE *Q VTE Criteria *Q: - Stroke *Q Stroke Criteria *Q: - AMI *Q AMI Criteria *Q:
[2017-03-20] MEDS: HYDROmorphone 0.5 MG/0.5 ML Syringe IVPUSH PRN (11:04)
[2017-03-20 12:41] VITALS: BP 127/80
== END 2017-03-20 13:00 | disposition home or self-care (01) | DRG 331 ==
LOC: JD.MS 07:49
PROVIDERS: ADMIT Surgery; ATTEND Surgery
PROC: 0DBB0ZZ Excision of Ileum, Open Approach (ICD-10-PCS; principal; 2017-03-16)
DX: Z43.2 Encounter for attention to ileostomy (principal)
CPT/HCPCS: 00840; 36415; 74020; 74020-26; 85025; 90732; 94760; A9270-GY; G0009; J0694; J1100; J1170; J1885; J2250; J2370; J2405; J2704; J2710; J3010; J3490; J7120